=== PATIENT | female | born 1995 | race Caucasian/White ===

== ENCOUNTER 2016-08-02 20:26 | Emergency (ER) | payer SELFPAY ==
--- NOTE | 2016-08-02 20:33 | ER Document Report ---
ED Medical Screen (RME) - General Stated Complaint: WEAKNESS Time seen by provider: 20:31 Mode of Arrival: Wheelchair Information source: Patient Notes: 20-year-old female presents to ED for nausea with no vomiting, dizziness, fatigue, and nausea. Last menstrual period 07/27/2016. States she had something similar about a year ago but she doesn't know what was going on the I have greeted and performed a rapid initial assessment of this patient. A comprehensive ED assessment and evaluation of the patient, analysis of test results and completion of medical decision making process will be conducted by an additional ED providers. TRAVEL OUTSIDE OF THE [place] IN LAST 30 DAYS: No - Related Data Allergies/Adverse Reactions: prednisone [Prednisone] Allergy (Unknown, Verified 04/15/15 15:45) amoxicillin [Amoxicillin] Allergy (Verified 08/12/15 23:45) ondansetron HCl [From Zofran] Allergy (Verified 08/12/15 23:45) Past Medical History - Past Medical History Cardiac Medical History: Reports: Hx Hypercholesterolemia Pulmonary Medical History: Reports: Hx Bronchitis Endocrine Medical History: Reports: Hx Diabetes Mellitus Type 2 Renal/ Medical History: Reports: Hx Ectopic GI Medical History: Reports: Hx Gastroesophageal Reflux Disease Musculoskeltal Medical History: Reports Hx Musculoskeletal Deformity - sciatica , Reports Hx Musculoskeletal Trauma - feet and fingers Psychiatric Medical History: Reports: Hx Anxiety, Hx Attention Deficit Hyperactivity Disorder, Hx Bipolar Disorder, Hx Depression Traumatic Medical History: Reports: Hx Fractures - fingers and feet Past Surgical History: Reports: Hx Adenoidectomy, Hx Oral Surgery, Hx Orthopedic Surgery - bilateral ankle, Hx Tonsillectomy - Immunizations Immunizations up to date: Yes Hx Diphtheria, Pertussis, Tetanus Vaccination: Yes
[2016-08-02 20:34] VITALS: BP 130/76
[2016-08-02 20:57] LABS: ABSOLUTE EOSINOPHILS # (AUTO) 0.1 10^3/uL (0.0-0.6); ABSOLUTE LYMPHOCYTES (AUTO) 2.1 10^3/uL (0.5-4.7); ABSOLUTE MONOCYTES (AUTO) 0.4 10^3/uL (0.1-1.4); BASOPHILS % (AUTO) 0.2 % (0-2); EOSINOPHILS % (AUTO) 1.4 % (0-6); HEMATOCRIT 37.3 % (36.0-47.0); HEMOGLOBIN 12.4 g/dL (12.0-15.5); HGB HCT DIFFERENCE -0.1; LYMPHOCYTES % (AUTO) 27.9 % (13-45); MEAN CORPUSCULAR HEMOGLOBIN 28.7 pg (27.0-33.4); MEAN CORPUSCULAR HGB CONC 33.1 g/dL (32.0-36.0); MEAN CORPUSCULAR VOLUME 87 fl (80-97); MONOCYTES % (AUTO) 4.6 % (3-13); RED BLOOD COUNT 4.31 10^6/uL (3.72-5.28); RED CELL DISTRIBUTION WIDTH 12.7 % (11.5-14.0); SEGMENTED NEUTROPHILS % (AUTO) 65.9 % (42-78); WHITE BLOOD COUNT 7.6 10^3/uL (4.0-10.5)
[2016-08-02 21:03] LABS: APPEARANCE,URINE CLOUDY; BILIRUBIN,URINE NEGATIVE (NEGATIVE); GLUCOSE, URINE NEGATIVE (NEGATIVE); KETONES,URINE NEGATIVE (NEGATIVE); LEUKOCYTE ESTERASE,URINE TRACE (NEGATIVE); NITRITE,URINE NEGATIVE (NEGATIVE); PROTEIN,URINE NEGATIVE (NEGATIVE); URINE SPECIFIC GRAVITY 1.024
[2016-08-02 21:15] LABS: URINE BARBITURATES SCREEN NEGATIVE; URINE METHADONE SCREEN NEGATIVE; URINE PHENCYCLIDINE SCREEN NEGATIVE
[2016-08-02 21:22] LABS: ALANINE AMINOTRANSFERASE 55 U/L (5-35); ALBUMIN 4.8 g/dL (3.7-5.6); ALKALINE PHOSPHATASE 76 U/L (50-135); ANION GAP 13 (5-19); ASPARTATE AMINO TRANSFERASE 39 U/L (5-30); BILIRUBIN,TOTAL 0.6 mg/dL (0.2-1.3); BLOOD UREA NITROGEN 16 mg/dL (7-20); CALCIUM 9.6 mg/dL (8.4-10.2); CARBON DIOXIDE 26 mmol/L (22-30); CHLORIDE 105 mmol/L (98-107); CREATININE RESULT 0.69 mg/dL (0.52-1.25); GLUCOSE 113 mg/dL (75-110); LIPASE 131.5 U/L (23-300); POTASSIUM 4.1 mmol/L (3.6-5.0); SODIUM 144.3 mmol/L (137-145); TOTAL PROTEIN 7.4 g/dL (6.3-8.2)
== END 2016-08-02 20:50 | disposition left against medical advice (07) ==
LOC: ER 20:26
DX: R53.1 Weakness (principal); R11.0 Nausea; Z53.9 Procedure and treatment not carried out, unspecified reason
CPT/HCPCS: 36415; 80053; 80307; 81001; 83690; 84702; 85025; 99283

== ENCOUNTER 2016-08-18 10:13 | Emergency (ER) | payer SELFPAY ==
--- NOTE | 2016-08-18 10:26 | ER Document Report ---
ED Medical Screen (RME) - General Stated Complaint: LEG PAIN Time seen by provider: 10:22 Mode of Arrival: Wheelchair Information source: Patient TRAVEL OUTSIDE OF THE [place] IN LAST 30 DAYS: No - HPI Patient complains to provider of: LEFT HIP/LEG PAIN Onset: Other - 2-3 WEEKS Onset/Duration: Persistent Context: SEEN AT [facility] FOR 2-3 WEEKS AGO, XRAYS WERE NORMAL. DENIES INJURY. HX SCIATICA. PT WAS PUT ON MELOXICAM. Quality of pain: Sharp Severity: Severe Pain Level: 5 Associated Symptoms: None Exacerbated by: Denies Relieved by: Denies Similar symptoms previously: Yes Recently seen / treated by doctor: Yes - Related Data Smoking: Non-smoker Frequency of alcohol use: None Drug Abuse: None Pertinent History: HX SCIATICA MIGRAINES Allergies/Adverse Reactions: prednisone [Prednisone] Allergy (Unknown, Verified 04/15/15 15:45) amoxicillin [Amoxicillin] Allergy (Verified 08/12/15 23:45) ondansetron HCl [From Zofran] Allergy (Verified 08/12/15 23:45) Past Medical History - Past Medical History Cardiac Medical History: Reports: Hx Hypercholesterolemia Pulmonary Medical History: Reports: Hx Bronchitis Endocrine Medical History: Reports: Hx Diabetes Mellitus Type 2 Renal/ Medical History: Reports: Hx Ectopic . Denies: Hx Peritoneal Dialysis GI Medical History: Reports: Hx Gastroesophageal Reflux Disease Musculoskeltal Medical History: Reports Hx Musculoskeletal Deformity - sciatica , Reports Hx Musculoskeletal Trauma - feet and fingers Psychiatric Medical History: Reports: Hx Anxiety, Hx Attention Deficit Hyperactivity Disorder, Hx Bipolar Disorder, Hx Depression Traumatic Medical History: Reports: Hx Fractures - fingers and feet Past Surgical History: Reports: Hx Adenoidectomy, Hx Oral Surgery, Hx Orthopedic Surgery - bilateral ankle, Hx Tonsillectomy - Immunizations Immunizations up to date: Yes Hx Diphtheria, Pertussis, Tetanus Vaccination: Yes
--- NOTE | 2016-08-18 11:25 | ER Document Report ---
[id number] Mode of Arrival: Wheelchair Information source: Patient Notes: 20 yr old female presents with complaints of sciatica for 3 year duration. pt has been to multiple eds, notes that she has never seen ortho . pt denies any new neuro deficits, admits to pain shooting ot her calves on the left. pt also notes continued hip pain TRAVEL OUTSIDE OF THE [place] IN LAST 30 DAYS: No - HPI Onset: Other Onset/Duration: Persistent Quality of pain: Achy Severity: Mild Pain Level: 1 Associated symptoms: Other Exacerbated by: Movement Relieved by: Denies Similar symptoms previously: Yes Recently seen / treated by doctor: Yes - Related Data Allergies/Adverse Reactions: prednisone [Prednisone] Allergy (Unknown, Verified 08/18/16 10:24) amoxicillin [Amoxicillin] Allergy (Verified 08/18/16 10:24) ondansetron HCl [From Zofran] Allergy (Verified 08/18/16 10:24) Past Medical History - General Information source: Patient - Social History Smoking Status: Never Smoker Cigarette use (# per day): No Chew tobacco use (# tins/day): No Smoking Education Provided: No Frequency of alcohol use: None Drug Abuse: None Family History: Arthritis, CAD, CVA, DM, Hyperlipidemia, Hypertension, Malignancy, Thyroid Disfunction Patient has suicidal ideation: No Patient has homicidal ideation: No - Past Medical History Cardiac Medical History: Reports: Hx Hypercholesterolemia Pulmonary Medical History: Reports: Hx Bronchitis Endocrine Medical History: Reports: Hx Diabetes Mellitus Type 2 Renal/ Medical History: Reports: Hx Ectopic . Denies: Hx Peritoneal Dialysis GI Medical History: Reports: Hx Gastroesophageal Reflux Disease Musculoskeltal Medical History: Reports Hx Musculoskeletal Deformity - sciatica , Reports Hx Musculoskeletal Trauma - feet and fingers Psychiatric Medical History: Reports: Hx Anxiety, Hx Attention Deficit Hyperactivity Disorder, Hx Bipolar Disorder, Hx Depression Traumatic Medical History: Reports: Hx Fractures - fingers and feet Past Surgical History: Reports: Hx Adenoidectomy, Hx Oral Surgery, Hx Orthopedic Surgery - bilateral ankle, Hx Tonsillectomy - Immunizations Immunizations up to date: Yes Hx Diphtheria, Pertussis, Tetanus Vaccination: Yes Review of Systems - Review of Systems Notes: REVIEW OF SYSTEMS: CONSTITUTIONAL : Denies fever, chills, or sweats. Denies recent illness. EENT: Denies eye, ear, throat, or mouth pain or symptoms. Denies nasal or sinus congestion or discharge. Denies throat, tongue, or mouth swelling or difficulty swallowing. CARDIOVASCULAR: Denies chest pain. Denies palpitations or racing or irregular heart beat. Denies ankle edema. RESPIRATORY: Denies cough, cold, or chest congestion. Denies shortness of breath, difficulty breathing, or wheezing. GASTROINTESTINAL: Denies abdominal pain or distention. Denies nausea, vomiting , or diarrhea. Denies blood in vomitus, stools, or per rectum. Denies black, tarry stools. Denies constipation. GENITOURINARY: Denies difficulty urinating, painful urination, burning, frequency, blood in urine, or discharge. FEMALE GENITOURINARY: Denies vaginal bleeding, heavy or abnormal periods, irregular periods. Denies vaginal discharge or odor. MUSCULOSKELETAL: Admits to left hip pain rating down the left leg SKIN: Denies rash, lesions or sores. HEMATOLOGIC : Denies easy bruising or bleeding. LYMPHATIC: Denies swollen, enlarged glands. NEUROLOGICAL: Denies confusion or altered mental status. Denies passing out or loss of consciousness. Denies dizziness or lightheadedness. Denies headache. Denies weakness or paralysis or loss of use of either side. Denies problems with gait or speech. Denies sensory loss, numbness, or tingling. Denies seizures. PSYCHIATRIC: Denies anxiety or stress. Denies depression, suicidal ideation, or homicidal ideation. ALL OTHER SYSTEMS REVIEWED AND NEGATIVE. Dictation was performed using [employer] voice recognition software PHYSICAL EXAMINATION: GENERAL: Well-appearing, well-nourished and in no acute distress. HEAD: Atraumatic, normocephalic. EYES: Pupils equal round and reactive to light, extraocular movements intact, conjunctiva are normal. ENT: Nares patent, oropharynx clear without exudates. Moist mucous membranes. NECK: Normal range of motion, supple without lymphadenopathy LUNGS: Breath sounds clear to auscultation bilaterally and equal. No wheezes rales or rhonchi. HEART: Regular rate and rhythm without murmurs ABDOMEN: Soft, nontender, nondistended abdomen. No guarding, no rebound. No masses appreciated. Female : deferred Musculoskeletal: Normal range of motion, no pitting or edema. No cyanosis. NEUROLOGICAL: Cranial nerves grossly intact. Normal speech, normal gait. Normal sensory, motor exams PSYCH: Normal mood, normal affect. SKIN: Warm, Dry, normal turgor, no rashes or lesions noted. Physical Exam - Vital signs Vitals: Temp Pulse Resp BP Pulse Ox 98.0 F 82 14 132/77 H 98 08/18/16 10:23 08/18/16 10:23 08/18/16 10:23 08/18/16 10:23 08/18/16 10:23 Course - Re-evaluation Re-evalutation: 08/18/16 16:43 Patient will be treated for her pain, I believe the patient's otherwise stable for discharge given that this is now on going for 3 year duration. Patient will be given orthopedic follow-up and is otherwise in no specific distress. Patient has no cauda equina concerns[ After performing a Medical Screening Examination, I estimate there is LOW risk for EXPANDING OR RUPTURED ABDOMINAL AORTIC ANEURYSM, CAUDA EQUINA SYNDROME, EPIDURAL MASS LESION, or HERNIATED DISK CAUSING SEVERE SPINAL STENOSIS, thus I consider the discharge disposition reasonable. The patient and I have discussed the diagnosis and risks, and we agree with discharging home and close follow-up. We also discussed returning to the Emergency Department immediately if new or worsening symptoms occur with the understanding that symptoms and presentations can change. We have discussed the symptoms which are most concerning (e.g., saddle anesthesia, urinary or bowel incontinence or retention , changing or worsening pain) that necessitate immediate return. - Vital Signs Vital signs: Temp Pulse Resp BP Pulse Ox 98.2 F 80 16 128/72 H 98 08/18/16 11:30 08/18/16 11:30 08/18/16 11:30 08/18/16 11:30 08/18/16 11:30 Discharge - Discharge Clinical Impression: Hip pain, left, Sciatic leg pain Condition: Stable Disposition: HOME, SELF-CARE Instructions: Neuralgia ([facility]) Prescriptions: Gabapentin 300 mg PO BID #30 capsule Referrals: HERMILO BLANTON MD [Primary Care Provider] - Follow up as needed YENY BRONSON MD [ACTIVE STAFF] - Follow up tomorrow
[2016-08-18 11:41] VITALS: BP 128/72
== END 2016-08-18 11:30 | disposition home or self-care (01) ==
LOC: ER 10:13
DX: M54.32 Sciatica, left side (principal); E11.9 Type 2 diabetes mellitus without complications; M25.552 Pain in left hip; Z88.8 Allergy status to other drugs, medicaments and biological substances; Z88.0 Allergy status to penicillin
CPT/HCPCS: 99283

== ENCOUNTER 2016-10-04 19:15 | Emergency (ER) | payer SELFPAY ==
[2016-10-04 19:29] VITALS: BP 132/74
--- NOTE | 2016-10-04 20:40 | ER Document Report ---
ED Medical Screen (RME) - General Stated Complaint: FEVER,NAUSEA,LEFT SIDE PAIN Mode of Arrival: Ambulatory Information source: Patient Notes: Patient reports fever today of 101.7 at home. Patient reports nausea and lateral side pain. No urinary symptoms. Patient denies any vaginal bleeding or discharge. Patient does complain of some ear pain. hx: Migraine, anxiety, depression I have greeted and performed a rapid initial assessment of this patient. A comprehensive ED assessment and evaluation of the patient, analysis of test results and completion of the medical decision making process will be conducted by additional ED providers. TRAVEL OUTSIDE OF THE [place] IN LAST 30 DAYS: No - Related Data Allergies/Adverse Reactions: prednisone [Prednisone] Allergy (Unknown, Verified 10/04/16 20:38) amoxicillin [Amoxicillin] Allergy (Verified 10/04/16 20:38) ondansetron HCl [From Zofran] Allergy (Verified 10/04/16 20:38) Past Medical History - Past Medical History Cardiac Medical History: Reports: Hx Hypercholesterolemia Pulmonary Medical History: Reports: Hx Bronchitis Endocrine Medical History: Reports: Hx Diabetes Mellitus Type 2 Renal/ Medical History: Reports: Hx Ectopic . Denies: Hx Peritoneal Dialysis GI Medical History: Reports: Hx Gastroesophageal Reflux Disease Musculoskeltal Medical History: Reports Hx Musculoskeletal Deformity - sciatica , Reports Hx Musculoskeletal Trauma - feet and fingers Psychiatric Medical History: Reports: Hx Anxiety, Hx Attention Deficit Hyperactivity Disorder, Hx Bipolar Disorder, Hx Depression Traumatic Medical History: Reports: Hx Fractures - fingers and feet Past Surgical History: Reports: Hx Adenoidectomy, Hx Oral Surgery, Hx Orthopedic Surgery - bilateral ankle, Hx Tonsillectomy - Immunizations Immunizations up to date: Yes Hx Diphtheria, Pertussis, Tetanus Vaccination: Yes Physical Exam - Vital signs Vitals: Temp Pulse Resp BP Pulse Ox 99.1 F 90 16 132/74 H 100 10/04/16 19:27 10/04/16 19:27 10/04/16 19:27 10/04/16 19:27 10/04/16 19:27 - Abdominal Tenderness: Tender - Left lateral side tenderness Course - Vital Signs Vital signs: Temp Pulse Resp BP Pulse Ox 99.1 F 90 16 132/74 H 100 10/04/16 19:27 10/04/16 19:27 10/04/16 19:27 10/04/16 19:27 10/04/16 19:27
[2016-10-04 21:18] LABS: APPEARANCE,URINE SLIGHTLY-CLOUDY; BILIRUBIN,URINE NEGATIVE (NEGATIVE); GLUCOSE, URINE NEGATIVE (NEGATIVE); KETONES,URINE NEGATIVE (NEGATIVE); LEUKOCYTE ESTERASE,URINE NEGATIVE (NEGATIVE); NITRITE,URINE NEGATIVE (NEGATIVE); PROTEIN,URINE NEGATIVE (NEGATIVE); URINE SPECIFIC GRAVITY 1.016; UROBILINOGEN,URINE NEGATIVE mg/dL (<2.0)
[2016-10-04 21:21] LABS: ALANINE AMINOTRANSFERASE 33 U/L (5-35); ALBUMIN 4.7 g/dL (3.7-5.6); ALKALINE PHOSPHATASE 79 U/L (50-135); ANION GAP 12 (5-19); ASPARTATE AMINO TRANSFERASE 22 U/L (5-30); BILIRUBIN,DIRECT 0.1 mg/dL (0.0-0.4); BILIRUBIN,TOTAL 0.4 mg/dL (0.2-1.3); BLOOD UREA NITROGEN 8 mg/dL (7-20); CALCIUM 10.3 mg/dL (8.4-10.2); CARBON DIOXIDE 28 mmol/L (22-30); CHLORIDE 105 mmol/L (98-107); CREATININE RESULT 0.66 mg/dL (0.52-1.25); GLUCOSE 101 mg/dL (75-110); LIPASE 121.4 U/L (23-300); POTASSIUM 3.9 mmol/L (3.6-5.0); SODIUM 145.4 mmol/L (137-145); TOTAL PROTEIN 7.7 g/dL (6.3-8.2)
[2016-10-04 21:40] LABS: ABSOLUTE EOSINOPHILS # (AUTO) 0.1 10^3/uL (0.0-0.6); ABSOLUTE LYMPHOCYTES (AUTO) 3.2 10^3/uL (0.5-4.7); ABSOLUTE MONOCYTES (AUTO) 0.6 10^3/uL (0.1-1.4); ABSOLUTE NEUT (AUTO) 4.8 10^3/uL (1.7-8.2); BASOPHILS % (AUTO) 0.3 % (0-2); EOSINOPHILS % (AUTO) 1.3 % (0-6); HEMATOCRIT 36.8 % (36.0-47.0); HEMOGLOBIN 12.8 g/dL (12.0-15.5); HGB HCT DIFFERENCE 1.6; LYMPHOCYTES % (AUTO) 36.8 % (13-45); MEAN CORPUSCULAR HEMOGLOBIN 29.8 pg (27.0-33.4); MEAN CORPUSCULAR HGB CONC 34.6 g/dL (32.0-36.0); MEAN CORPUSCULAR VOLUME 86 fl (80-97); MONOCYTES % (AUTO) 7.3 % (3-13); RED BLOOD COUNT 4.28 10^6/uL (3.72-5.28); RED CELL DISTRIBUTION WIDTH 12.8 % (11.5-14.0); SEGMENTED NEUTROPHILS % (AUTO) 54.3 % (42-78); WHITE BLOOD COUNT 8.8 10^3/uL (4.0-10.5)
--- NOTE | 2016-10-05 00:28 | ER Document Report ---
ED Fever - General Time seen by provider: 00:27 Mode of Arrival: Ambulatory Information source: Patient TRAVEL OUTSIDE OF THE [place] IN LAST 30 DAYS: No - HPI Patient complains to provider of: fever Associated symptoms: Other - see above <TANYA SILVESTRE - Last Filed: 10/05/16 01:25> <JOSE MACIEL - Last Filed: 10/05/16 03:28> - General Chief Complaint: Fever Stated Complaint: FEVER Notes: Patient is a 20 year old female who presents to the emergency department complaining of fever. Patient also complains of intermittent abdominal pain on left side, nausea, vomiting, and breast tenderness. Patient states that she is feeling fine presently. Patient states she took a test this morning at home and it was positive, states her next period is due in 5 days. Patient denies vaginal bleeding, vaginal discharge, and back pain. (TANYA SILVESTRE) - Related Data Allergies/Adverse Reactions: prednisone [Prednisone] Allergy (Unknown, Verified 10/04/16 20:38) amoxicillin [Amoxicillin] Allergy (Verified 10/04/16 20:38) ondansetron HCl [From Zofran] Allergy (Verified 10/04/16 20:38) Past Medical History - General Information source: Patient - Social History Smoking Status: Never Smoker Chew tobacco use (# tins/day): No Frequency of alcohol use: None Drug Abuse: None Family History: Reviewed & Not Pertinent, Arthritis, CAD, CVA, DM, Hyperlipidemia, Hypertension, Malignancy, Thyroid Disfunction - Past Medical History Cardiac Medical History: Reports: Hx Hypercholesterolemia Pulmonary Medical History: Reports: Hx Bronchitis Endocrine Medical History: Reports: Hx Diabetes Mellitus Type 2 Renal/ Medical History: Reports: Hx Ectopic GI Medical History: Reports: Hx Gastroesophageal Reflux Disease Musculoskeltal Medical History: Reports Hx Musculoskeletal Deformity - sciatica , Reports Hx Musculoskeletal Trauma - feet and fingers Psychiatric Medical History: Reports: Hx Anxiety, Hx Attention Deficit Hyperactivity Disorder, Hx Bipolar Disorder, Hx Depression Traumatic Medical History: Reports: Hx Fractures - fingers and feet Past Surgical History: Reports: Hx Adenoidectomy, Hx Oral Surgery, Hx Orthopedic Surgery - bilateral ankle, Hx Tonsillectomy - Immunizations Immunizations up to date: Yes Hx Diphtheria, Pertussis, Tetanus Vaccination: Yes <TANYA SILVESTRE - Last Filed: 10/05/16 01:25> Review of Systems - Review of Systems Constitutional: See HPI, Fever EENT: No symptoms reported Cardiovascular: No symptoms reported Respiratory: No symptoms reported Gastrointestinal: See HPI, Abdominal pain, Nausea, Vomiting Genitourinary: No symptoms reported Female Genitourinary: See HPI, Other - breast tenderness. denies: Vaginal discharge, Vaginal bleeding Musculoskeletal: denies: Back pain Skin: No symptoms reported Hematologic/Lymphatic: No symptoms reported Neurological/Psychological: No symptoms reported -: Yes All other systems reviewed and negative <TANYA SILVESTRE - Last Filed: 10/05/16 01:25> Physical Exam - Vital signs Interpretation: Normal - General General appearance: Appears well, Alert - HEENT Head: Normocephalic, Atraumatic Eyes: Normal Pupils: PERRL - Respiratory Respiratory status: No respiratory distress Chest status: Nontender Breath sounds: Normal Chest palpation: Normal - Cardiovascular Rhythm: Regular Heart sounds: Normal auscultation Murmur: No - Abdominal Inspection: Normal Distension: No distension Bowel sounds: Normal Tenderness: Nontender Organomegaly: No organomegaly - Back Back: Normal, Nontender - Extremities General upper extremity: Normal inspection, Nontender, Normal color, Normal ROM , Normal temperature General lower extremity: Normal inspection, Nontender, Normal color, Normal ROM , Normal temperature, Normal weight bearing. No: Gunjan's sign - Neurological Neuro grossly intact: Yes Cognition: Normal Orientation: AAOx4 Jerad Coma Scale Eye Opening: Spontaneous Jerad Coma Scale Verbal: Oriented Jerad Coma Scale Motor: Obeys Commands [place] Coma Scale Total: 15 Speech: Normal Motor strength normal: LUE, RUE, LLE, RLE Sensory: Normal - Psychological Associated symptoms: Normal affect, Normal mood - Skin Skin Temperature: Warm Skin Moisture: Dry Skin Color: Normal <JOSE MACIEL - Last Filed: 10/05/16 03:28> - Vital signs Vitals: Temp Pulse Resp BP Pulse Ox 99.1 F 90 16 132/74 H 100 10/04/16 19:27 10/04/16 19:27 10/04/16 19:27 10/04/16 19:27 10/04/16 19:27 Course - Laboratory Result Diagrams: 10/04/16 20:45 10/04/16 20:45 <TANYA SILVESTRE - Last Filed: 10/05/16 01:25> - Laboratory Result Diagrams: 10/04/16 20:45 10/04/16 20:45 <JOSE MACIEL - Last Filed: 10/05/16 03:28> - Re-evaluation Re-evalutation: 10/05/16 Patient with no symptoms at this time. Normal physical exam. Blood work normal. Patient states that she a positive home test. HCG qual and Quant negative here. Patient is not at this time. She is to follow- up with her doctor if she has any further symptoms or return if she has concerns. Stable for discharge. (JOSE MACIEL) - Vital Signs Vital signs: Temp Pulse Resp BP Pulse Ox 99.1 F 90 16 132/74 H 100 10/04/16 19:27 10/04/16 19:27 10/04/16 19:27 10/04/16 19:27 10/04/16 19:27 - Laboratory Laboratory results interpreted by me: 10/04/16 20:45 Sodium 145.4 H Calcium 10.3 H Discharge <TANYA SILVESTRE - Last Filed: 10/05/16 01:25> <JOSE MACIEL - Last Filed: 10/05/16 03:28> - Discharge Clinical Impression: Nausea Abdominal pain Qualifiers: Abdominal location: unspecified location Qualified Code(s): R10.9 - Unspecified abdominal pain Condition: Stable Disposition: HOME, SELF-CARE Instructions: Abdominal Pain ([facility]), Nausea or Vomiting, Nonspecific ([facility]) Referrals: HERMILO BLANTON MD [Primary Care Provider] - Follow up as needed Scribe Attestation: 10/05/16 03:28 I personally performed the services described in the documentation, reviewed and edited the documentation which was dictated to the scribe in my presence, and it accurately records my words and actions. (JOSE MACIEL) Scribe Documentation - Scribe Written by Carlota:: carlota Barger, 10/05/16, 0148 acting as scribe for :: Renny <TANYA SILVESTRE - Last Filed: 10/05/16 01:25>
== END 2016-10-05 01:18 | disposition home or self-care (01) ==
LOC: ER 19:15
DX: R10.9 Unspecified abdominal pain (principal); R11.2 Nausea with vomiting, unspecified; R50.9 Fever, unspecified; N64.59 Other signs and symptoms in breast; E11.9 Type 2 diabetes mellitus without complications; Z32.02 Encounter for pregnancy test, result negative; Z88.8 Allergy status to other drugs, medicaments and biological substances; Z88.0 Allergy status to penicillin; Z87.19 Personal history of other diseases of the digestive system
CPT/HCPCS: 36415; 80053; 81001; 83690; 84702; 84703; 85025; 87070; 87804; 87880; 99283

== ENCOUNTER 2016-10-12 19:06 | Emergency (ER) | payer SELFPAY ==
--- NOTE | 2016-10-12 19:31 | ER Document Report ---
ED Medical Screen (RME) - General Stated Complaint: EAR AND THROAT PAIN Notes: Patient states she was told by her doctor at [facility] to come to the emergency room cousin the extreme ear pain she was having in both ears for 2 days. Patient denies congestion, discharge or fever. Patient denies chronic problem with her ears. I have greeted and performed a rapid initial assessment of this patient. A comprehensive ED assessment and evaluation of the patient, analysis of test results and completion of the medical decision making process will be conducted by additional ED providers. TRAVEL OUTSIDE OF THE [place] IN LAST 30 DAYS: No - Related Data Allergies/Adverse Reactions: prednisone [Prednisone] Allergy (Unknown, Verified 10/12/16 19:32) amoxicillin [Amoxicillin] Allergy (Verified 10/12/16 19:32) ondansetron HCl [From Zofran] Allergy (Verified 10/12/16 19:32) Past Medical History - Past Medical History Cardiac Medical History: Reports: Hx Hypercholesterolemia Pulmonary Medical History: Reports: Hx Bronchitis Endocrine Medical History: Reports: Hx Diabetes Mellitus Type 2 Renal/ Medical History: Reports: Hx Ectopic . Denies: Hx Peritoneal Dialysis GI Medical History: Reports: Hx Gastroesophageal Reflux Disease Musculoskeltal Medical History: Reports Hx Musculoskeletal Deformity - sciatica , Reports Hx Musculoskeletal Trauma - feet and fingers Psychiatric Medical History: Reports: Hx Anxiety, Hx Attention Deficit Hyperactivity Disorder, Hx Bipolar Disorder, Hx Depression Traumatic Medical History: Reports: Hx Fractures - fingers and feet Past Surgical History: Reports: Hx Adenoidectomy, Hx Oral Surgery, Hx Orthopedic Surgery - bilateral ankle, Hx Tonsillectomy - Immunizations Immunizations up to date: Yes Hx Diphtheria, Pertussis, Tetanus Vaccination: Yes Physical Exam - General General appearance: Appears well, Alert In distress: None
[2016-10-12] MEDS ORDERED: AZITHROMYCIN 250 MG TABLET PO ONE (22:03)
[2016-10-12] MEDS ORDERED: HYDROCODONE/ACETAMINOPHEN 5-325 MG TABLET PO ONE (22:03)
--- NOTE | 2016-10-12 22:04 | ER Document Report ---
HPI - HPI Patient complains to provider of: ear pain Onset: Other - 2 days Onset/Duration: Persistent Quality of pain: Achy Pain Level: 4 Context: Patient complains of bilateral ear pain, right worse than left for the past 2 days. Patient denies any sore throat or dental pain. Patient denies any fever. Patient denies any recent swimming or water exposure to the ears. Associated Symptoms: Earache. denies: Fever Exacerbated by: Denies Relieved by: Denies Similar symptoms previously: Yes Recently seen / treated by doctor: No - ROS ROS below otherwise negative: Yes Systems Reviewed and Negative: Yes All other systems reviewed and negative - CONSTITUTIONAL Constitutional: DENIES: Fever - EENT EENT: REPORTS: Ear Pain. DENIES: Sore Throat, Congestion - NEURO Neurology: DENIES: Headache - RESPIRATORY Respiratory: DENIES: Coughing - GASTROINTESTINAL Gastrointestinal: DENIES: Nausea, Patient vomiting - REPRODUCTIVE Reproductive: DENIES: : - DERM Skin Color: Normal, [place] Skin Problems: None Past Medical History - General Information source: Patient - Social History Smoking Status: Never Smoker Chew tobacco use (# tins/day): No Frequency of alcohol use: None Drug Abuse: None Occupation: daycare worker Lives with: Family Family History: Reviewed & Not Pertinent, Arthritis, CAD, CVA, DM, Hyperlipidemia, Hypertension, Malignancy, Thyroid Disfunction - Past Medical History Cardiac Medical History: Reports: Hx Hypercholesterolemia Pulmonary Medical History: Reports: Hx Bronchitis Endocrine Medical History: Reports: Hx Diabetes Mellitus Type 2 Renal/ Medical History: Reports: Hx Ectopic . Denies: Hx Peritoneal Dialysis GI Medical History: Reports: Hx Gastroesophageal Reflux Disease Musculoskeltal Medical History: Reports Hx Musculoskeletal Deformity - sciatica , Reports Hx Musculoskeletal Trauma - feet and fingers Psychiatric Medical History: Reports: Hx Anxiety, Hx Attention Deficit Hyperactivity Disorder, Hx Bipolar Disorder, Hx Depression Traumatic Medical History: Reports: Hx Fractures - fingers and feet Past Surgical History: Reports: Hx Adenoidectomy, Hx Oral Surgery, Hx Orthopedic Surgery - bilateral ankle, Hx Tonsillectomy - Immunizations Immunizations up to date: Yes Hx Diphtheria, Pertussis, Tetanus Vaccination: Yes Vertical Provider Document - CONSTITUTIONAL Agree With Documented VS: Yes Exam Limitations: No Limitations General Appearance: WD/WN, No Apparent Distress - INFECTION CONTROL TRAVEL OUTSIDE OF THE [place] IN LAST 30 DAYS: No - HEENT HEENT: Atraumatic, Normocephalic, Tympanic Membrane Red, Tympanic Membrane Bulging. negative: Pharyngeal Exudate, Pharyngeal Tenderness, Pharyngeal Erythema Notes: No mastoid tenderness or swelling - NECK Neck: Normal Inspection, Supple. negative: Lymphadenopathy-Left, Lymphadenopathy-Right - RESPIRATORY Respiratory: Breath Sounds Normal, No Respiratory Distress, Chest Non-Tender O2 Sat by Pulse Oximetry: 99 - CARDIOVASCULAR Cardiovascular: Regular Rate, Regular Rhythm, No Murmur - BACK Back: Normal Inspection - MUSCULOSKELETAL/EXTREMETIES Musculoskeletal/Extremeties: MAEW - NEURO Level of Consciousness: Awake, Alert, Appropriate Motor/Sensory: No Motor Deficit - DERM Integumentary: Warm, Dry, No Rash Course - Re-evaluation Re-evalutation: 10/12/16 22:42 Excessive cerumen removed from left external auditory canal, normal right TM - Vital Signs Vital signs: Temp Pulse Resp BP Pulse Ox 99.1 F 72 16 125/68 99 10/12/16 19:25 10/12/16 19:25 10/12/16 19:25 10/12/16 19:25 10/12/16 19:25 Discharge - Discharge Clinical Impression: Impacted cerumen of left ear Otitis media Qualifiers: Otitis media type: unspecified Laterality: right Chronicity: acute Condition: Stable Disposition: HOME, SELF-CARE Instructions: Otitis Media ([facility]), Azithromycin ([facility]), Cerumen Impaction ([facility]) Additional Instructions: Return immediately for any new or worsening symptoms Followup with your primary care provider, call tomorrow to make a followup appointment Follow up with an nuclear spectroscopist for any continued ear pain or problems Prescriptions: Azithromycin [Zithromax 250 mg Tablet] 250 mg PO DAILY 4 Days Hydrocodone/Acetaminophen [Hundred 5-325 Tablet] 1 each PO Q4 PRN #12 tablet PRN Reason: Referrals: HERMILO BLANTON MD [Primary Care Provider] - 10/15/16 [facility] [Provider Group] - Follow up as needed
[2016-10-12 23:17] VITALS: BP 121/76
== END 2016-10-12 23:17 | disposition home or self-care (01) ==
LOC: ER 19:06
DX: H66.91 Otitis media, unspecified, right ear (principal); H61.22 Impacted cerumen, left ear; H92.03 Otalgia, bilateral; E11.9 Type 2 diabetes mellitus without complications
CPT/HCPCS: 99282

== ENCOUNTER 2016-11-04 17:40 | Emergency (ER) | payer SELFPAY ==
--- NOTE | 2016-11-04 18:24 | ER Document Report ---
ED Medical Screen (RME) - General Chief Complaint: Abdominal Pain Stated Complaint: ABDOMINAL PAIN Notes: Patient says that she's been having left lower quadrant pain since July says the pain is constant. She was seen at another hospital ([facility]) in August and diagnosed as constipation but the patient doesn't sound like she believes it. She continues to have the same pains even though she is having regular bowel movements. Denies any blood in her stools. Not having any vomiting. Has not had a fever. On a previous occasion patient was seen at [facility] where she was told she had twisting and untwisting ovaries. She's never had any surgery for this condition. Is scheduled to see her LADLE PULLER this coming week. Fertility issues. TRAVEL OUTSIDE OF THE [place] IN LAST 30 DAYS: No - Related Data Allergies/Adverse Reactions: prednisone [Prednisone] Allergy (Unknown, Verified 11/04/16 17:55) amoxicillin [Amoxicillin] Allergy (Verified 11/04/16 17:55) ondansetron HCl [From Zofran] Allergy (Verified 11/04/16 17:55) Past Medical History - Past Medical History Cardiac Medical History: Reports: Hx Hypercholesterolemia Pulmonary Medical History: Reports: Hx Bronchitis Endocrine Medical History: Reports: Hx Diabetes Mellitus Type 2 Renal/ Medical History: Reports: Hx Ectopic . Denies: Hx Peritoneal Dialysis GI Medical History: Reports: Hx Gastroesophageal Reflux Disease Musculoskeltal Medical History: Reports Hx Musculoskeletal Deformity - sciatica , Reports Hx Musculoskeletal Trauma - feet and fingers Psychiatric Medical History: Reports: Hx Anxiety, Hx Attention Deficit Hyperactivity Disorder, Hx Bipolar Disorder, Hx Depression Traumatic Medical History: Reports: Hx Fractures - fingers and feet Past Surgical History: Reports: Hx Adenoidectomy, Hx Oral Surgery, Hx Orthopedic Surgery - bilateral ankle, Hx Tonsillectomy - Immunizations Immunizations up to date: Yes Hx Diphtheria, Pertussis, Tetanus Vaccination: Yes Physical Exam - Vital signs Vitals: Temp Pulse Resp BP Pulse Ox 98.1 F 66 18 138/63 H 100 11/04/16 17:54 11/04/16 17:54 11/04/16 17:54 11/04/16 17:54 11/04/16 17:54 Course - Vital Signs Vital signs: Temp Pulse Resp BP Pulse Ox 98.1 F 66 18 138/63 H 100 11/04/16 17:54 11/04/16 17:54 11/04/16 17:54 11/04/16 17:54 11/04/16 17:54
[2016-11-04 18:57] LABS: ABSOLUTE EOSINOPHILS # (AUTO) 0.1 10^3/uL (0.0-0.6); ABSOLUTE LYMPHOCYTES (AUTO) 2.9 10^3/uL (0.5-4.7); ABSOLUTE MONOCYTES (AUTO) 0.8 10^3/uL (0.1-1.4); BASOPHILS % (AUTO) 0.3 % (0-2); EOSINOPHILS % (AUTO) 1.5 % (0-6); HEMATOCRIT 35.8 % (36.0-47.0); HEMOGLOBIN 12.6 g/dL (12.0-15.5); LYMPHOCYTES % (AUTO) 33.2 % (13-45); MEAN CORPUSCULAR HEMOGLOBIN 30.3 pg (27.0-33.4); MEAN CORPUSCULAR HGB CONC 35.3 g/dL (32.0-36.0); MEAN CORPUSCULAR VOLUME 86 fl (80-97); MONOCYTES % (AUTO) 8.6 % (3-13); RED BLOOD COUNT 4.17 10^6/uL (3.72-5.28); RED CELL DISTRIBUTION WIDTH 12.6 % (11.5-14.0); SEGMENTED NEUTROPHILS % (AUTO) 56.4 % (42-78); WHITE BLOOD COUNT 8.8 10^3/uL (4.0-10.5)
[2016-11-04 19:15] LABS: ALANINE AMINOTRANSFERASE 30 U/L (5-35); ALBUMIN 4.5 g/dL (3.7-5.6); ALKALINE PHOSPHATASE 69 U/L (50-135); ANION GAP 13 (5-19); ASPARTATE AMINO TRANSFERASE 23 U/L (5-30); BILIRUBIN,DIRECT 0.1 mg/dL (0.0-0.4); BILIRUBIN,TOTAL 0.5 mg/dL (0.2-1.3); BLOOD UREA NITROGEN 12 mg/dL (7-20); CALCIUM 9.8 mg/dL (8.4-10.2); CARBON DIOXIDE 27 mmol/L (22-30); CHLORIDE 105 mmol/L (98-107); CREATININE RESULT 0.72 mg/dL (0.52-1.25); GLUCOSE 76 mg/dL (75-110); LIPASE 144.3 U/L (23-300); POTASSIUM 4.3 mmol/L (3.6-5.0); SODIUM 145.3 mmol/L (137-145)
[2016-11-04 19:27] LABS: APPEARANCE,URINE SLIGHTLY-CLOUDY; BILIRUBIN,URINE NEGATIVE (NEGATIVE); GLUCOSE, URINE NEGATIVE (NEGATIVE); KETONES,URINE NEGATIVE (NEGATIVE); LEUKOCYTE ESTERASE,URINE NEGATIVE (NEGATIVE); NITRITE,URINE NEGATIVE (NEGATIVE); PROTEIN,URINE NEGATIVE (NEGATIVE); URINE SPECIFIC GRAVITY 1.012; UROBILINOGEN,URINE NEGATIVE mg/dL (<2.0)
--- NOTE | 2016-11-04 20:24 | ER Document Report ---
ED General - General Chief Complaint: Abdominal Pain Stated Complaint: ABDOMINAL PAIN Notes: Patient is a 20-year-old female who presents with 3 months of chronic daily left lower abdominal pain. The pain is described as a constant, dull, aching pain in the left lower quadrant. Nothing improves or worsens the pain. She denies any associated vaginal bleeding, dysuria, vaginal discharge, back pain, vomiting or diarrhea. She is continuing to have these symptoms despite trying [id number] pain medications. She was seen at [facility] 3 months ago for the same complaints and had a CT of her abdomen and pelvis at that time which was normal. Patient does note a history of depression, anxiety, chronic back pain, and has a history of functional abdominal pain in the past. TRAVEL OUTSIDE OF THE [place] IN LAST 30 DAYS: No - Related Data Allergies/Adverse Reactions: prednisone [Prednisone] Allergy (Unknown, Verified 11/04/16 17:55) amoxicillin [Amoxicillin] Allergy (Verified 11/04/16 17:55) ondansetron HCl [From Zofran] Allergy (Verified 11/04/16 17:55) Past Medical History - General Information source: Patient - Social History Smoking Status: Never Smoker Chew tobacco use (# tins/day): No Frequency of alcohol use: None Drug Abuse: None Lives with: Spouse/Significant other Family History: Reviewed & Not Pertinent, Arthritis, CAD, CVA, DM, Hyperlipidemia, Hypertension, Malignancy, Thyroid Disfunction Patient has suicidal ideation: No Patient has homicidal ideation: No - Past Medical History Cardiac Medical History: Reports: Hx Hypercholesterolemia Pulmonary Medical History: Reports: Hx Bronchitis Endocrine Medical History: Reports: Hx Diabetes Mellitus Type 2 Renal/ Medical History: Reports: Hx Ectopic . Denies: Hx Peritoneal Dialysis GI Medical History: Reports: Hx Gastroesophageal Reflux Disease Musculoskeltal Medical History: Reports Hx Musculoskeletal Deformity - sciatica , Reports Hx Musculoskeletal Trauma - feet and fingers Psychiatric Medical History: Reports: Hx Anxiety, Hx Attention Deficit Hyperactivity Disorder, Hx Bipolar Disorder, Hx Depression Traumatic Medical History: Reports: Hx Fractures - fingers and feet Past Surgical History: Reports: Hx Adenoidectomy, Hx Oral Surgery, Hx Orthopedic Surgery - bilateral ankle, Hx Tonsillectomy - Immunizations Immunizations up to date: Yes Hx Diphtheria, Pertussis, Tetanus Vaccination: Yes Review of Systems - Review of Systems Notes: Constitutional: Negative for fever. HENT: Negative for sore throat. Eyes: Negative for visual changes. Cardiovascular: Negative for chest pain. Respiratory: Negative for shortness of breath. Gastrointestinal: Positive for abdominal pain, negative for vomiting or diarrhea. Genitourinary: Negative for dysuria. Musculoskeletal: Negative for back pain. Skin: Negative for rash. Neurological: Negative for headaches, weakness or numbness. 10 point ROS negative except as marked above and in HPI. Physical Exam - Vital signs Vitals: Temp Pulse Resp BP Pulse Ox 98.1 F 66 18 138/63 H 100 11/04/16 17:54 11/04/16 17:54 11/04/16 17:54 11/04/16 17:54 11/04/16 17:54 Interpretation: Normal Notes: PHYSICAL EXAMINATION: GENERAL: Well-appearing, well-nourished and in no acute distress. HEAD: Atraumatic, normocephalic. EYES: Pupils equal round and reactive to light, extraocular movements intact, sclera anicteric, conjunctiva are normal. ENT: nares patent, oropharynx clear without exudates. Moist mucous membranes. NECK: Normal range of motion, supple without lymphadenopathy LUNGS: Breath sounds clear to auscultation bilaterally and equal. No wheezes rales or rhonchi. HEART: Regular rate and rhythm without murmurs ABDOMEN: Soft, nontender, normoactive bowel sounds. No guarding, no rebound. No masses appreciated. EXTREMITIES: Normal range of motion, no pitting or edema. No cyanosis. NEUROLOGICAL: No focal neurological deficits. Moves all extremities spontaneously and on command. PSYCH: Normal mood, normal affect. SKIN: Warm, Dry, normal turgor, no rashes or lesions noted. Course - Re-evaluation Re-evalutation: 11/04/16 20:23 Patient presents with chronic left lower abdominal pain for the past 2 months has been getting progressively worse. On exam, she does have mild left lower and left adnexal tenderness neither of which is more tender than the other. No rebound or guarding. No abdominal pain in any location and no flank tenderness. Laboratories are unremarkable. I suspect the patient likely has chronic functional abdominal pain given her frequent visits to the emergency department for various pain-related complaints, history of anxiety, depression, ADHD, and other functional symptoms. I related this to her and have encouraged her to follow-up with psychiatry and GI for colonoscopy. Will obtain a transvaginal ultrasound to exclude a left ovarian mass. She has already had a CT of the abdomen and pelvis at [facility] for this abdominal pain which was normal and I do not believe the risks of repeated CT imaging to this young female with a potential benefits as I have a very low clinical suspicion for any acute life-threatening diagnosis that would be better clarified using CT imaging. Patient is in agreement with this 11/04/16 22:08 Transvaginal ultrasound does not demonstrate any acute findings. Unfortunately left ovary was not able to be visualized due to bowel gas but again my overall clinical suspicion for TOA, ovarian torsion, were very low and the larger question was if patient had a large cyst on that side that could be causing some intermittent discomfort. I related the patient the findings of her ultrasound. I have encouraged her to follow-up with her [employer] WORKER as well as primary care provider.At this time will discharge with return precautions and follow-up recommendations. Verbal discharge instructions given a the bedside and opportunity for questions given. Medication warnings reviewed. Patient is in agreement with this plan and has verbalized understanding of return precautions and the need for primary care follow-up in the next 24-72 hours. - Vital Signs Vital signs: Temp Pulse Resp BP Pulse Ox 97.6 F 67 18 119/72 100 11/04/16 21:45 11/04/16 21:45 11/04/16 21:45 11/04/16 21:45 11/04/16 21:45 - Laboratory Result Diagrams: 11/04/16 18:20 11/04/16 18:20 Laboratory results interpreted by me: 11/04/16 11/04/16 18:20 18:20 Hct 35.8 L Sodium 145.3 H - Diagnostic Test Radiology reviewed: Reports reviewed Discharge - Discharge Clinical Impression: Left lower quadrant abdominal pain of unknown etiology Condition: Good Disposition: HOME, SELF-CARE Additional Instructions: You have been seen in the Emergency Department (ED) for abdominal pain. Your evaluation did not identify a clear cause of your symptoms but was generally reassuring. We are trialing a course of antibiotics to see if this will improve your symptoms. Please take as directed. Please follow up with your doctor as soon as possible regarding today's emergent visit and the symptoms that are bothering you. Return to the ED if your abdominal pain worsens or fails to improve, you develop bloody vomiting, bloody diarrhea, you are unable to tolerate fluids due to vomiting, fever greater than 101, or other symptoms that concern you. Prescriptions: Ciprofloxacin HCl [Cipro 500 mg Tablet] 500 mg PO BID #20 tablet Metronidazole [Flagyl 500 mg Tablet] 500 mg PO Q6H #40 tablet Referrals: HERMILO BLANTON MD [Primary Care Provider] - Follow up in 3-5 days
[2016-11-04 23:58] VITALS: BP 119/72
== END 2016-11-04 22:00 | disposition home or self-care (01) ==
LOC: ER 17:40
DX: G89.29 Other chronic pain (principal); R10.32 Left lower quadrant pain; E11.9 Type 2 diabetes mellitus without complications; Z88.8 Allergy status to other drugs, medicaments and biological substances; Z88.0 Allergy status to penicillin
CPT/HCPCS: 36415; 76830; 80053; 81001; 83690; 84703; 85025; 93976; 99284

== ENCOUNTER 2017-01-26 14:18 | Emergency (ER) | payer SELFPAY ==
[2017-01-26] MEDS ORDERED: LORAZEPAM 0.5 MG TABLET PO ONE (15:14)
[2017-01-26] MEDS ORDERED: DIPHENHYDRAMINE HCL 50 MG CAPSULE PO ONE (15:14)
--- NOTE | 2017-01-26 16:46 | ER Document Report ---
ED Allergic Reaction - General Chief Complaint: Allergic Reaction Stated Complaint: POSSIBLE ALLERGIC REACTION Time Seen by Provider: 01/26/17 14:59 Notes: Patient is a 21-year-old female who presents emergency department complaining of allergic reaction. Patient states that approximately 130 this afternoon she was in a restaurant eating lunch with family and the reduced had mixed up their orders and had put any food. Patient states that she has an allergy to Ambien which she feels like she is difficulty swallowing in her mouth goes numb. Patient states that after she is having difficulty breathing, swallowing, abnormality as well as chest pressure. Patient states that she waited for it to subside as opposed to taking Benadryl which she states normally resolved her symptoms whenever she eats onion. When her symptoms did not improve she felt was appropriate to come to the emergency department. Patient does admit to history of anxiety and depression. She has taken herself off medications. She states that her mouth numbness and difficulty swallowing has improved but she still feels short of breath. Patient talking in full sentences without any evidence of respiratory distress. TRAVEL OUTSIDE OF THE [place] IN LAST 30 DAYS: No - Related Data Allergies/Adverse Reactions: prednisone [Prednisone] Allergy (Unknown, Verified 01/26/17 14:23) amoxicillin [Amoxicillin] Allergy (Verified 01/26/17 14:23) ondansetron HCl [From Zofran] Allergy (Verified 01/26/17 14:23) Past Medical History - Social History Smoking Status: Never Smoker Chew tobacco use (# tins/day): No Drug Abuse: None Family History: Reviewed & Not Pertinent, Arthritis, CAD, CVA, DM, Hyperlipidemia, Hypertension, Malignancy, Thyroid Disfunction Patient has suicidal ideation: No Patient has homicidal ideation: No - Past Medical History Cardiac Medical History: Reports: Hx Hypercholesterolemia Pulmonary Medical History: Reports: Hx Bronchitis Endocrine Medical History: Reports: Hx Diabetes Mellitus Type 2 Renal/ Medical History: Reports: Hx Ectopic . Denies: Hx Peritoneal Dialysis GI Medical History: Reports: Hx Gastroesophageal Reflux Disease Musculoskeltal Medical History: Reports Hx Musculoskeletal Deformity - sciatica , Reports Hx Musculoskeletal Trauma - feet and fingers Psychiatric Medical History: Reports: Hx Anxiety, Hx Attention Deficit Hyperactivity Disorder, Hx Bipolar Disorder, Hx Depression Traumatic Medical History: Reports: Hx Fractures - fingers and feet Past Surgical History: Reports: Hx Adenoidectomy, Hx Oral Surgery, Hx Orthopedic Surgery - bilateral ankle, Hx Tonsillectomy - Immunizations Immunizations up to date: Yes Hx Diphtheria, Pertussis, Tetanus Vaccination: Yes Review of Systems - Review of Systems Constitutional: No symptoms reported EENT: See HPI Cardiovascular: See HPI Respiratory: See HPI Skin: No symptoms reported Neurological/Psychological: See HPI -: Yes All other systems reviewed and negative Physical Exam - Vital signs Vitals: Temp Pulse Resp BP Pulse Ox 98.9 F 90 18 137/74 H 98 01/26/17 14:22 01/26/17 14:22 01/26/17 14:22 01/26/17 14:22 01/26/17 14:22 - Notes Notes: PHYSICAL EXAM GENERAL: Alert, interacts well. HEAD: Normocephalic, atraumatic. EYES: Pupils equal, round, and reactive to light. Extraocular movements intact. ENT: Oral mucosa moist, tongue midline. NECK: Full range of motion. Supple. Trachea midline. LUNGS: Clear to auscultation bilaterally, no wheezes, rales, or rhonchi. No respiratory distress. HEART: Regular rate and rhythm. No murmurs, gallops, or rubs. ABDOMEN: Soft, nondistended, nontender. No guarding, rebound, or rigidity.. Bowel sounds present in all 4 quadrants. EXTREMITIES: Moves all 4 extremities spontaneously. No edema, radial and dorsalis pedis pulses 2/4 bilaterally. No cyanosis. NEUROLOGICAL: Alert and oriented x4. Normal speech. PSYCH: Normal affect, normal mood. SKIN: Warm, dry, normal turgor. No rashes or lesions noted. Course - Re-evaluation Re-evalutation: 01/26/17 21:32 Patient is a 21-year-old female who is hemodynamic stable, no acute distress and afebrile. No evidence for anaphylaxis at this time. Patient is speaking in complete sentences with no evidence of respiratory distress. Patient received Benadryl and Ativan at the bedside with complete resolution of her symptoms. Patient stable for discharge home with instruction to follow-up with her primary and psychiatrist. Patient is agreeable with plan. - Vital Signs Vital signs: Temp Pulse Resp BP Pulse Ox 98.9 F 62 17 123/76 99 01/26/17 14:22 01/26/17 17:04 01/26/17 17:04 01/26/17 17:04 01/26/17 17:04 - EKG Interpretation by Me EKG shows normal: Sinus rhythm Rate: Normal Rhythm: NSR When compared to previous EKG there are: No significant change Discharge - Discharge Clinical Impression: Anxiety Allergic reaction Qualifiers: Encounter type: initial encounter Qualified Code(s): T78.40XA - Allergy, unspecified, initial encounter Condition: Good Disposition: HOME, SELF-CARE Instructions: Acute Allergic Reaction ([facility]), Food Allergy ([facility]), Use of Diphenhydramine, Anxiety ([facility]) Forms: Return to Work Referrals: HERMILO BLANTON MD [Primary Care Provider] - Follow up as needed
[2017-01-26 17:07] VITALS: BP 123/76
--- NOTE | 2017-01-26 19:58 | EKG REPORT ---
SEVERITY:- NORMAL ECG - SINUS RHYTHM : Confirmed by: Chong Tillman MD 26-Jan-2017 19:57:52
== END 2017-01-26 17:07 | disposition home or self-care (01) ==
LOC: ER 14:18
DX: T78.40XA Allergy, unspecified, initial encounter (principal); X58.XXXA Exposure to other specified factors, initial encounter; F41.9 Anxiety disorder, unspecified; R06.02 Shortness of breath; R20.0 Anesthesia of skin; R13.10 Dysphagia, unspecified; R07.89 Other chest pain; Z91.14 Patient's other noncompliance with medication regimen; Z88.8 Allergy status to other drugs, medicaments and biological substances; Z88.0 Allergy status to penicillin; E11.9 Type 2 diabetes mellitus without complications
CPT/HCPCS: 93005; 93010; 99283

== ENCOUNTER 2017-02-22 13:10 | Emergency (ER) | payer OTHER ==
[2017-02-22] MEDS ORDERED: METOCLOPRAMIDE HCL INJ/PF 10 MG/2 ML SDV IV ONE (13:20)
[2017-02-22] MEDS ORDERED: NORMAL SALINE 1000 ML 1,000 ML IV ONE (13:20)
--- NOTE | 2017-02-22 13:21 | ER Document Report ---
ED Medical Screen (RME) - General Chief Complaint: Nausea/Vomiting Stated Complaint: NAUSEA Time Seen by Provider: 02/22/17 13:20 TRAVEL OUTSIDE OF THE [place] IN LAST 30 DAYS: No - HPI Notes: 02/22/17 13:20 Nausea vomiting diarrhea for 1 week abdominal pain diffuse for greater than 1 week. - Related Data Allergies/Adverse Reactions: prednisone [Prednisone] Allergy (Unknown, Verified 02/22/17 13:14) amoxicillin [Amoxicillin] Allergy (Verified 02/22/17 13:14) ondansetron HCl [From Zofran] Allergy (Verified 02/22/17 13:14) Past Medical History - Past Medical History Cardiac Medical History: Reports: Hx Hypercholesterolemia Pulmonary Medical History: Reports: Hx Bronchitis Endocrine Medical History: Reports: Hx Diabetes Mellitus Type 2 Renal/ Medical History: Reports: Hx Ectopic . Denies: Hx Peritoneal Dialysis GI Medical History: Reports: Hx Gastroesophageal Reflux Disease Musculoskeltal Medical History: Reports Hx Musculoskeletal Deformity - sciatica , Reports Hx Musculoskeletal Trauma - feet and fingers Psychiatric Medical History: Reports: Hx Anxiety, Hx Attention Deficit Hyperactivity Disorder, Hx Bipolar Disorder, Hx Depression Traumatic Medical History: Reports: Hx Fractures - fingers and feet Past Surgical History: Reports: Hx Adenoidectomy, Hx Oral Surgery, Hx Orthopedic Surgery - bilateral ankle, Hx Tonsillectomy - Immunizations Immunizations up to date: Yes Hx Diphtheria, Pertussis, Tetanus Vaccination: Yes Review of Systems - Review of Systems Constitutional: Other - Nausea vomiting diarrhea abdominal pain greater than 1 week Physical Exam - Vital signs Vitals: Temp Pulse Resp BP Pulse Ox 98.5 F 63 16 122/64 97 02/22/17 13:12 02/22/17 13:12 02/22/17 13:12 02/22/17 13:12 02/22/17 13:12 - Abdominal Inspection: Normal Distension: No distension Bowel sounds: Normal Tenderness: Nontender Organomegaly: No organomegaly Course - Re-evaluation Re-evalutation: 02/22/17 13:21 I have greeted and performed a rapid initial assessment of this patient. A comprehensive ED assessment and evaluation of the patient, analysis of test results and completion of the medical decision making process will be conducted by additional ED providers. - Vital Signs Vital signs: Temp Pulse Resp BP Pulse Ox 98.5 F 63 16 122/64 97 02/22/17 13:12 02/22/17 13:12 02/22/17 13:12 02/22/17 13:12 02/22/17 13:12
[2017-02-22 13:49] LABS: ABSOLUTE EOSINOPHILS # (AUTO) 0.1 10^3/uL (0.0-0.6); ABSOLUTE MONOCYTES (AUTO) 0.4 10^3/uL (0.1-1.4); ABSOLUTE NEUT (AUTO) 3.5 10^3/uL (1.7-8.2); BASOPHILS % (AUTO) 0.3 % (0-2); EOSINOPHILS % (AUTO) 0.9 % (0-6); HEMATOCRIT 38.6 % (36.0-47.0); HEMOGLOBIN 13.5 g/dL (12.0-15.5); HGB HCT DIFFERENCE 1.9; LYMPHOCYTES % (AUTO) 33.1 % (13-45); MEAN CORPUSCULAR HEMOGLOBIN 30.2 pg (27.0-33.4); MEAN CORPUSCULAR VOLUME 86 fl (80-97); MONOCYTES % (AUTO) 6.5 % (3-13); RED BLOOD COUNT 4.47 10^6/uL (3.72-5.28); RED CELL DISTRIBUTION WIDTH 12.4 % (11.5-14.0); SEGMENTED NEUTROPHILS % (AUTO) 59.2 % (42-78); WHITE BLOOD COUNT 5.9 10^3/uL (4.0-10.5)
--- NOTE | 2017-02-22 13:49 | ER Document Report ---
ED GI/ - General Chief Complaint: Nausea/Vomiting Stated Complaint: NAUSEA Time Seen by Provider: 02/22/17 13:20 Information source: Patient Notes: 21-year-old female with past medical history including sciatica, migraines, ADHD , and depression who presents with 6 months of intermittent lower abdominal suprapubic "pain". She denies any radiation, she denies any aggravating or relieving factors other than worsening pain with sex. She denies any missed menstrual periods, dysuria, vaginal discharge, or flank pain. Patient states she went to her BAND BOOKER who "would not test for anything". She also states she has had 2-3 weeks of some intermittent vomiting. She denies any diarrhea. She denies any recent antibiotics. She denies any recent trips or travel. TRAVEL OUTSIDE OF THE [place] IN LAST 30 DAYS: No - HPI Patient complains to provider of: Abdominal pain Onset: Other - See above Timing/Duration: Gradual Quality of pain: Achy, Burning Severity at maximum: Moderate Severity in ED: None Pain Level: 0 Location: Suprapubic Vaginal bleeding (Compared to normal period): None Menstrual period history: denies: Abnormal Sexual history: Active Associated symptoms: Other - See above Exacerbated by: Denies Relieved by: Denies Similar symptoms previously: Yes Recently seen / treated by doctor: Yes - Related Data Allergies/Adverse Reactions: prednisone [Prednisone] Allergy (Unknown, Verified 02/22/17 13:14) amoxicillin [Amoxicillin] Allergy (Verified 02/22/17 13:14) ondansetron HCl [From Zofran] Allergy (Verified 02/22/17 13:14) Past Medical History - General Information source: Patient - Social History Smoking Status: Never Smoker Chew tobacco use (# tins/day): No Frequency of alcohol use: None Drug Abuse: None Family History: Reviewed & Not Pertinent, Arthritis, CAD, CVA, DM, Hyperlipidemia, Hypertension, Malignancy, Thyroid Disfunction - Past Medical History Cardiac Medical History: Reports: Hx Hypercholesterolemia Pulmonary Medical History: Reports: Hx Bronchitis Endocrine Medical History: Reports: Hx Diabetes Mellitus Type 2 Renal/ Medical History: Reports: Hx Ectopic . Denies: Hx Peritoneal Dialysis GI Medical History: Reports: Hx Gastroesophageal Reflux Disease Musculoskeltal Medical History: Reports Hx Musculoskeletal Deformity - sciatica , Reports Hx Musculoskeletal Trauma - feet and fingers Psychiatric Medical History: Reports: Hx Anxiety, Hx Attention Deficit Hyperactivity Disorder, Hx Bipolar Disorder, Hx Depression Traumatic Medical History: Reports: Hx Fractures - fingers and feet Past Surgical History: Reports: Hx Adenoidectomy, Hx Oral Surgery, Hx Orthopedic Surgery - bilateral ankle, Hx Tonsillectomy - Immunizations Immunizations up to date: Yes Hx Diphtheria, Pertussis, Tetanus Vaccination: Yes Review of Systems - Review of Systems Constitutional: denies: Fever EENT: denies: Eye discharge, Blurred vision, Nose discharge Cardiovascular: denies: Chest pain, Palpitations, Heart racing Respiratory: denies: Short of breath Gastrointestinal: Vomiting. denies: Abdomen distended, Diarrhea, Constipation Genitourinary: denies: Dysuria Musculoskeletal: denies: Leg swelling Skin: Other - no hives. denies: Rash Neurological/Psychological: Other - no slurred speech -: Yes All other systems reviewed and negative Physical Exam - Vital signs Vitals: Temp Pulse Resp BP Pulse Ox 98.5 F 63 16 122/64 97 02/22/17 13:12 02/22/17 13:12 02/22/17 13:12 02/22/17 13:12 02/22/17 13:12 Notes: Reviewed vital signs and nursing note as charted by RN. CONSTITUTIONAL: Alert and oriented and responds appropriately to questions. Well -appearing; well-nourished HEAD: Normocephalic; atraumatic EYES: Sclerae non-icteric CARD: Regular rate and rhythm; no murmurs, no clicks, no rubs, no gallops; symmetric distal pulses RESP: Normal chest excursion without splinting or tachypnea; breath sounds clear and equal bilaterally; no wheezes, no rhonchi, no rales ABD/GI: Normal bowel sounds; non-distended; soft, non-tender to deep palpation of all 4 quadrants of the abdomen, no rebound, no guarding; no palpable organomegaly or masses BACK: The back appears normal and is non-tender to palpation, there is no CVA tenderness EXT: Normal ROM in all joints; non-tender to palpation; no cyanosis, no effusions, no edema SKIN: Normal color for age and race; warm; dry; good turgor; capillary refill < 2 seconds; no acute lesions noted NEURO: Moves all extremities equally; Motor and sensory function intact PSYCH: The patient's mood and manner are appropriate. Grooming and personal hygiene are appropriate. Course - Re-evaluation Re-evalutation: 02/22/17 13:49 Given the history and physical examination with this prolonged course of abdominal pain with no imaging studies, we will perform a CT scan of the abdomen and pelvis, basic labs, liver panel, lipase, urinalysis, perform a pelvic examination. I have an extremely low pretest probability for acute ovarian torsion or acute appendicitis. 02/22/17 14:45 Patient still has no pain to the abdomen. Pelvic examination shows no external or internal lesions, no cervical motion tenderness, no adnexal masses or tenderness. Patient is not . Labs as recorded. Normal white blood cell count. No obvious urinary tract infection. No ketones in the urine. Normal liver panel and lipase. CT scan is pending. 02/22/17 15:46 CT scan of the abdomen and pelvis as recorded. The patient states she would like something to eat and drink. Patient still has no tenderness on my repeat examination. If patient is able to tolerate p.o.'s, patient will be discharged home with strict return precautions and follow-up with the culture results. - Vital Signs Vital signs: Temp Pulse Resp BP Pulse Ox 98.5 F 63 16 122/64 97 02/22/17 13:12 02/22/17 13:12 02/22/17 13:12 02/22/17 13:12 02/22/17 13:12 - Laboratory Result Diagrams: 02/22/17 13:25 02/22/17 13:25 Laboratory results interpreted by me: 02/22/17 13:36 Urine Urobilinogen 4.0 H Discharge - Discharge Clinical Impression: Pelvic pain Vomiting Qualifiers: Vomiting type: unspecified Vomiting Intractability: non-intractable Nausea presence: with nausea Qualified Code(s): R11.2 - Nausea with vomiting, unspecified Condition: Good Disposition: HOME, SELF-CARE Additional Instructions: Come back immediately with any repeat vomiting, repeat pain, change in location or quality of pain, fevers, or any other acute problems. I have provided antinausea medications and a new BAND BOOKER for follow-up Prescriptions: Promethazine HCl [Phenergan 25 mg Tablet] 25 mg PO Q6H PRN #15 tablet PRN Reason: Referrals: HERMILO BLANTON MD [Primary Care Provider] - Follow up as needed JOSE ROSE, [CL[facility]NARD] - Follow up as needed
[2017-02-22 14:00] LABS: APPEARANCE,URINE SLIGHTLY-CLOUDY; BILIRUBIN,URINE NEGATIVE (NEGATIVE); GLUCOSE, URINE NEGATIVE (NEGATIVE); KETONES,URINE NEGATIVE (NEGATIVE); LEUKOCYTE ESTERASE,URINE NEGATIVE (NEGATIVE); NITRITE,URINE NEGATIVE (NEGATIVE); PROTEIN,URINE NEGATIVE (NEGATIVE); URINE SPECIFIC GRAVITY 1.025
[2017-02-22 14:02] LABS: ALANINE AMINOTRANSFERASE 33 U/L (9-52); ALBUMIN 4.5 g/dL (3.5-5.0); ALKALINE PHOSPHATASE 83 U/L (38-126); ANION GAP 11 (5-19); ASPARTATE AMINO TRANSFERASE 28 U/L (14-36); BILIRUBIN,DIRECT 0.3 mg/dL (0.0-0.4); BILIRUBIN,TOTAL 0.9 mg/dL (0.2-1.3); BLOOD UREA NITROGEN 12 mg/dL (7-20); CALCIUM 9.5 mg/dL (8.4-10.2); CARBON DIOXIDE 25 mmol/L (22-30); CHLORIDE 106 mmol/L (98-107); CREATININE RESULT 0.67 mg/dL (0.52-1.25); GLUCOSE 97 mg/dL (75-110); LIPASE 86.5 U/L (23-300); SODIUM 141.9 mmol/L (137-145); TOTAL PROTEIN 7.4 g/dL (6.3-8.2)
[2017-02-22 14:12] LABS: URINE BARBITURATES SCREEN NEGATIVE; URINE METHADONE SCREEN NEGATIVE; URINE OPIATES LOW NEGATIVE; URINE PHENCYCLIDINE SCREEN NEGATIVE
--- NOTE | 2017-02-22 15:43 | RADIOLOGY REPORT (SQ) ---
EXAM DESCRIPTION: CT ABD/PELVIS WITH IV ONLY COMPLETED DATE/TIME: 02/22/2017 3:31 pm REASON FOR STUDY: 16, lower pelvic pain intermittently for 6 months, COMPARISON: None. TECHNIQUE: CT scan of the abdomen and pelvis performed using helical scanning technique with dynamic intravenous contrast injection. No oral contrast. Images reviewed with lung, soft tissue, and bone windows. Reconstructed coronal and sagittal MPR imag es reviewed. Delayed images for evaluation of the urinary system also acquired. All images stored on PACS. All CT scanners at this facility use dose modulation, iterative reconstruction, and/or weight based d osing when appropriate to reduce radiation dose to as low as reasonably achievable (ALARA). [facility]: Dose Right [facility]: CareDose [facility]: Dose Right [facility]: Teradose 4D [facility]: Livra Panels CONTRAST TYPE AND DOSE: contrast/concentration: Isovue 370.00 mg/ml; Total Contrast Delivered: 98.0 ml; Total Saline Delivered: 70.0 ml RENAL FUNCTION: Creatinine 0.67 RADIATION DOSE: Up-to-date CT equipment and radiation dose reduction techniques were employed. CTDIv ol: NaN - NaN mGy. DLP: 0 mGy-cm.. LIMITATIONS: No oral contrast FINDINGS: LOWER CHEST: No significant findings. No nodules or infiltrates. LIVER: Normal size. No masses. No dilated ducts. SPLEEN: Normal size. No focal lesions. PANCREAS: No masses. No significant calcifications. No adjacent inflammation or peripancreatic fluid collections. Pancreatic duct not dilated. GALLBLADDER: No identified stones by CT criteria. No inflammatory changes to suggest cholecystitis. ADRENAL GLANDS: No significant masses or asymmetry. RIGHT KIDNEY AND URETER: No solid masses. No significant calcifications. No hydronephrosis or hyd roureter. LEFT KIDNEY AND URETER: No solid masses. No significant calcifications. No hydronephrosis or hydr oureter. AORTA AND VESSELS: No aneurysm. No dissection. Renal arteries, SMA, celiac without stenosis. RETROPERITONEUM: No retroperitoneal adenopathy, hemorrhage or masses. BOWEL AND PERITONEAL CAVITY: No masses or inflammatory changes. No free fluid or peritoneal masses. APPENDIX: Normal. PELVIS: No mass. No free fluid. Normal bladder. ABDOMINAL WALL: No masses. No hernias. BONES: No significant or acute findings. OTHER: No other significant finding. IMPRESSION: NO SIGNIFICANT OR ACUTE FINDING IN THE ABDOMEN OR PELVIS ON CT SCAN WITH IV CONTRAST. TECHNICAL DOCUMENTATION: JOB ID: [id number] Quality ID # [id number]: Final reports with documentation of one or more dose reduction techniques (e.g., Au tomated exposure control, adjustment of the mA and/or kV according to patient size, use of iterative reconstruction technique) 2010 [employer]- All Rights Reserved
[2017-02-22 16:06] VITALS: BP 100/66
[2017-02-22 16:29] LABS: CHLAM PCR NOT DETECTED (NOT DETECT)
== END 2017-02-22 16:11 | disposition home or self-care (01) ==
LOC: ER 13:10
DX: R11.2 Nausea with vomiting, unspecified (principal); R10.2 Pelvic and perineal pain; F90.9 Attention-deficit hyperactivity disorder, unspecified type; F32.9 Major depressive disorder, single episode, unspecified; R10.9 Unspecified abdominal pain
CPT/HCPCS: 99284; 96361; 96374; 36415; 87210; 84702; 83690; 85025; 80053; 81001; 80307; 87491; 87591; 74177; J2765; J7030

== ENCOUNTER 2017-05-28 18:15 | Emergency (ER) | payer OTHER ==
[2017-05-28] MEDS ORDERED: DIPHENHYDRAMINE HCL 50 MG/ML VIAL IV ONE (18:56)
[2017-05-28] MEDS ORDERED: PROCHLORPERAZINE EDISYLATE INJ 10 MG/2 ML VIAL IV ONE (18:56)
[2017-05-28] MEDS ORDERED: KETOROLAC TROMETHAMINE INJ/PF 30 MG/1 ML SDV IV ONE (18:56)
--- NOTE | 2017-05-28 19:02 | ER Document Report ---
HPI - HPI Pain Level: 5 Notes: Patient is a 21-year-old female with a history of migraines who presents ED complaining of a intermittent headache over the last 2 weeks. Patient states that she is getting over a URI, but continues to have a headache. Patient states that the headache is described as an ache is primarily left-sided, but will originate from the back of the head at times as well. Patient states that her symptoms wax and wane and she has been using her ibuprofen at home as previously directed by her PCM. Patient states that she is still eating and drinking without any difficulty she still urinating normally and having normal bowel movements. Patient states that on occasion her ears will hurt as well bilaterally. She no longer has any nasal congestion or discharge. Denies any fever, head injury, neck pain, changes in vision/speech/mentation/hearing, URI, sore throat, chest pain, palpitations, syncope, cough, shortness of breath, wheeze, dyspnea, abdominal pain, nausea/vomiting/diarrhea, urinary retention, dysuria, hematuria, loss of control of bowel or bladder, numbness/tingling, saddle anesthesia, muscle paralysis/weakness, or rash. - ROS Notes: REVIEW OF SYSTEMS: CONSTITUTIONAL : Denies fever, chills, or sweats. Denies recent illness. EENT: Denies eye, ear, throat, or mouth pain or symptoms. Denies nasal or sinus congestion or discharge. Denies throat, tongue, or mouth swelling or difficulty swallowing. CARDIOVASCULAR: Denies chest pain. Denies palpitations or racing or irregular heart beat. Denies ankle edema. RESPIRATORY: Denies cough, cold, or chest congestion. Denies shortness of breath, difficulty breathing, or wheezing. GASTROINTESTINAL: Denies abdominal pain or distention. Denies nausea, vomiting , or diarrhea. Denies blood in vomitus, stools, or per rectum. Denies black, tarry stools. Denies constipation. GENITOURINARY: Denies difficulty urinating, painful urination, burning, frequency, blood in urine, or discharge. FEMALE GENITOURINARY: Denies vaginal bleeding, heavy or abnormal periods, irregular periods. Denies vaginal discharge or odor. MUSCULOSKELETAL: Denies back or neck pain or stiffness. Denies joint pain or swelling. SKIN: Denies rash, lesions or sores. HEMATOLOGIC : Denies easy bruising or bleeding. LYMPHATIC: Denies swollen, enlarged glands. NEUROLOGICAL: see hpi. Denies confusion or altered mental status. Denies passing out or loss of consciousness. Denies dizziness or lightheadedness. Denies weakness or paralysis or loss of use of either side. Denies problems with gait or speech. Denies sensory loss, numbness, or tingling. Denies seizures. PSYCHIATRIC: Denies anxiety or stress. Denies depression, suicidal ideation, or homicidal ideation. ALL OTHER SYSTEMS REVIEWED AND NEGATIVE. Dictation was performed using [employer] voice recognition software - REPRODUCTIVE Reproductive: DENIES: : Past Medical History - Social History Smoking Status: Never Smoker Family History: Reviewed & Not Pertinent, Arthritis, CAD, CVA, DM, Hyperlipidemia, Hypertension, Malignancy, Thyroid Disfunction - Past Medical History Cardiac Medical History: Reports: Hx Hypercholesterolemia Pulmonary Medical History: Reports: Hx Bronchitis Endocrine Medical History: Reports: Hx Diabetes Mellitus Type 2 Renal/ Medical History: Reports: Hx Ectopic . Denies: Hx Peritoneal Dialysis GI Medical History: Reports: Hx Gastroesophageal Reflux Disease Musculoskeltal Medical History: Reports Hx Musculoskeletal Deformity - sciatica , Reports Hx Musculoskeletal Trauma - feet and fingers Psychiatric Medical History: Reports: Hx Anxiety, Hx Attention Deficit Hyperactivity Disorder, Hx Bipolar Disorder, Hx Depression Traumatic Medical History: Reports: Hx Fractures - fingers and feet Past Surgical History: Reports: Hx Adenoidectomy, Hx Oral Surgery, Hx Orthopedic Surgery - bilateral ankle, Hx Tonsillectomy - Immunizations Immunizations up to date: Yes Hx Diphtheria, Pertussis, Tetanus Vaccination: Yes Vertical Provider Document - CONSTITUTIONAL Agree With Documented VS: Yes Notes: PHYSICAL EXAMINATION: GENERAL: Well-appearing, well-nourished and in no acute distress. A&Ox4 HEAD: Atraumatic, normocephalic. Non-tender. No olson sign EYES: Pupils equal round and reactive to light, extraocular movements intact, sclera anicteric, conjunctiva are normal. No raccoon eyes/entrapment. Non- tender. ENT: EAC clear b/l. TM's intact b/l without erythema, fluid, or perforation. Nares patent and without discharge. oropharynx clear without exudates. No tonsilar hypertrophy or erythema. Moist mucous membranes. No sinus tenderness. No hemotympanum/CSF discharge. NECK: Normal range of motion, supple without lymphadenopathy. No rigidity. No midline tenderness. Spurling negative. NEXUS negative. + mild C-paraspinal mm tenderness b/l. LUNGS: Breath sounds clear to auscultation bilaterally and equal. No wheezes rales or rhonchi. HEART: Regular rate and rhythm without murmurs, rubs, gallops. Musculoskeletal: Ext b/l: FROM to passive/active. Strength 5+/5. No deficits noted. No bony tenderness of extremities. Back: FROM to passive/active. Strength 5+/5. No vertebral point tenderness, stepoffs, or deformities. No other bony tenderness or ecchymosis. SLR negative b/l. Extremities: No cyanosis, clubbing, or edema b/l. Peripheral pulses 2+. Capillary refill less than 2 seconds. NEUROLOGICAL: MMSE intact. Cranial nerves grossly intact. Normal speech, normal gait. Normal sensory, motor exams. Reflexes 2+ b/l. DOC's negative. Pronator drift negative. Heel/heck, finger/nose wnl. Walking on heels/toes and heel to toe wnl. PSYCH: Normal mood, normal affect. SKIN: Warm, Dry, normal turgor, no rashes or lesions noted. - INFECTION CONTROL TRAVEL OUTSIDE OF THE [place] IN LAST 30 DAYS: No - RESPIRATORY O2 Sat by Pulse Oximetry: 98 Course - Re-evaluation Re-evalutation: 05/28/17 20:40 Patient is an afebrile, well-hydrated, 21-year-old female who presents the ED with a migraine versus tension type headache. Vitals are stable. PE is otherwise unremarkable for any focal neurological deficits. MMSE intact. No imaging warranted at this time based on H&P. Low suspicion for any acute glaucoma, temporal arteritis, meningitis, intracranial hemorrhage, ischemic stroke, or fracture at this time. Patient is aware that her condition can change from initial presentation and that patient was given she needs to monitor symptoms closely for any acute changes. Toradol, Compazine, Benadryl IV. Patient is tolerating p.o. without any difficulties. Patient was noted to have improvement in her headache and almost complete resolution upon recheck about 40 minutes after medicines were given. We will discharge home in stable condition. Recheck with your PCM in 3-5 days. Consider consult with a neurologist. Return to the ED with any worsening/concerning symptoms otherwise as reviewed in discharge. Patient is in agreement. - Vital Signs Vital signs: Temp Pulse Resp BP Pulse Ox 98.8 F 80 16 128/64 H 98 05/28/17 18:18 05/28/17 18:18 05/28/17 18:18 05/28/17 18:18 05/28/17 18:18 Discharge - Discharge Clinical Impression: Headache Qualifiers: Headache type: unspecified Headache chronicity pattern: acute headache Intractability: not intractable Qualified Code(s): R51 - Headache Condition: Stable Disposition: HOME, SELF-CARE Instructions: Intravenous Compazine for Headaches ([facility]), Use of Diphenhydramine , Headache ([facility]), Toradol Injection ([facility]) Additional Instructions: Rest, Ice Tylenol/ibuprofen as needed Light stretches daily Strength exercises as able Moist heat and massage may help F/u with your PCP in 3-5 days for a recheck Consider consult(s) with neurology for ongoing/worsening symptoms Return to the ED with any worsening symptoms and/or development of fever, headache, neck pain/stiffness, chest pain, palpitations, syncope, shortness of breath, trouble breathing, abdominal pain, n/v/d, blood in stool/urine, loss of control of bowel/bladder, urinary retention, muscle weakness/paralysis, saddle anesthesia, numbness/tingling, or other worsening symptoms that are concerning to you. Forms: Elevated Blood Pressure Referrals: OBDULIO MAYER MD [[facility]] - Follow up as needed
[2017-05-28 20:48] VITALS: BP 108/49
== END 2017-05-28 20:45 | disposition home or self-care (01) ==
LOC: ER 18:15
DX: R51 Headache (principal)
CPT/HCPCS: 99284; J1200; J1885; J0780

== ENCOUNTER 2017-07-08 23:51 | Emergency (ER) | payer OTHER ==
[2017-07-09] MEDS ORDERED: HYDROCODONE/ACETAMINOPHEN 5-325 MG TABLET PO ONE (00:38)
--- NOTE | 2017-07-09 00:41 | ER Document Report ---
HPI - HPI Patient complains to provider of: Ankle injury Onset: This evening Onset/Duration: Sudden Quality of pain: Achy Pain Level: 4 Context: Patient states she was walking, tripped over lights and rolled her ankle injuring her left ankle and foot. Patient complains of pain with ambulation. Associated Symptoms: Other - Left ankle pain Exacerbated by: Standing, Movement, Walking Relieved by: Denies Similar symptoms previously: No Recently seen / treated by doctor: No - ROS ROS below otherwise negative: Yes Systems Reviewed and Negative: Yes All other systems reviewed and negative - GASTROINTESTINAL Gastrointestinal: DENIES: Nausea, Patient vomiting - REPRODUCTIVE Reproductive: DENIES: : - MUSCULOSKELETAL Musculoskeletal: REPORTS: Extremity pain, Swelling - DERM Skin Color: Normal Skin Problems: None Past Medical History - General Information source: Patient - Social History Smoking Status: Never Smoker Frequency of alcohol use: None Drug Abuse: None Occupation: commissary assistant, doctor of nurse anesthesia Lives with: Family Family History: Reviewed & Not Pertinent, Arthritis, CAD, CVA, DM, Hyperlipidemia, Hypertension, Malignancy, Thyroid Disfunction - Past Medical History Cardiac Medical History: Reports: Hx Hypercholesterolemia Pulmonary Medical History: Reports: Hx Bronchitis Endocrine Medical History: Reports: Hx Diabetes Mellitus Type 2 Renal/ Medical History: Reports: Hx Ectopic . Denies: Hx Peritoneal Dialysis GI Medical History: Reports: Hx Gastroesophageal Reflux Disease Musculoskeltal Medical History: Reports Hx Musculoskeletal Deformity - sciatica , Reports Hx Musculoskeletal Trauma - feet and fingers Psychiatric Medical History: Reports: Hx Anxiety, Hx Attention Deficit Hyperactivity Disorder, Hx Bipolar Disorder, Hx Depression Traumatic Medical History: Reports: Hx Fractures - fingers and feet Past Surgical History: Reports: Hx Adenoidectomy, Hx Oral Surgery, Hx Orthopedic Surgery - bilateral ankle, Hx Tonsillectomy - Immunizations Immunizations up to date: Yes Hx Diphtheria, Pertussis, Tetanus Vaccination: Yes Vertical Provider Document - CONSTITUTIONAL Agree With Documented VS: Yes Exam Limitations: No Limitations General Appearance: WD/WN, No Apparent Distress - INFECTION CONTROL TRAVEL OUTSIDE OF THE [place] IN LAST 30 DAYS: No - HEENT HEENT: Atraumatic, Normocephalic - NECK Neck: Normal Inspection - RESPIRATORY Respiratory: No Respiratory Distress O2 Sat by Pulse Oximetry: 16 - CARDIOVASCULAR Pulses: Normal: Dorsalis pedis - MUSCULOSKELETAL/EXTREMETIES Musculoskeletal/Extremeties: MAEW, Tender - Left ankle tenderness over lateral malleolar area with 2+ edema, left lateral foot tenderness to area just inferior of lateral malleolar area, no deformity. negative: Eccymosis - NEURO Level of Consciousness: Awake, Alert, Appropriate Motor/Sensory: No Motor Deficit - DERM Integumentary: Warm, Dry, No Rash Course - Re-evaluation Re-evalutation: 07/09/17 02:24 pt not hypoxic at discharge, erroneous oxygen sat recorded per RN - Vital Signs Vital signs: Temp Pulse Resp BP Pulse Ox 67 18 120/73 16 L 07/09/17 00:01 07/09/17 00:01 07/09/17 00:01 07/09/17 00:01 - Diagnostic Test Radiology reviewed: Pending, Image reviewed Procedures - Immobilization Left Ankle Pre-Proc Neuro Vasc Exam: Normal Immobilizer type: Ankle stirrup Performed by: RN Post-Proc Neuro Vasc Exam: Normal Alignment checked and good: Yes Discharge - Discharge Clinical Impression: Foot pain, left Ankle sprain Qualifiers: Encounter type: initial encounter Involved ligament of ankle: unspecified ligament Laterality: left Qualified Code(s): S93.402A - Sprain of unspecified ligament of left ankle, initial encounter Condition: Stable Disposition: HOME, SELF-CARE Instructions: Ankle Stirrup Splint ([facility]), Use of Crutches ([facility]), Ice & Elevation ([facility]), Oral Narcotic Medication ([facility]), Sprained Ankle ([facility]) Additional Instructions: Return immediately for any new or worsening symptoms Followup with your primary care provider, call tomorrow to make a followup appointment Weightbearing as tolerated Follow-up with orthopedic doctor for any continued pain or problems Prescriptions: Naproxen [Naprosyn 250 Nmg Tablet] 1 tab PO BID #14 tablet Forms: Return to Work Referrals: [facility] [Provider Group] - Follow up as needed
[2017-07-09] MEDS ORDERED: HYDROCODONE/ACETAMINOPHEN 5-325 MG (6 TAB/ER DISP) PO PRN (01:17)
[2017-07-09 01:43] VITALS: BP 124/75
--- NOTE | 2017-07-09 05:19 | RADIOLOGY REPORT (SQ) ---
EXAM DESCRIPTION: 1. Left ankle, 3 views. 2. Left foot, 3 views. CLINICAL HISTORY: fall, rolled ankle, left foot pain COMPARISON: None. FINDINGS: Left ankle: 3 views of the left ankle. No acute fracture or dislocation. The tibial plafond and talar dome are intact. No abnormalities of visualized portions of the base of the fifth metatarsal. Normal osseous mineralization. Edema in the soft tissues adjacent to the lateral malleolus. Left foot: 3 views of the left foot. No acute fracture or dislocation. The tarsals and metatarsals are appropriately aligned. Normal osseous mineralization. IMPRESSION: No acute fracture or dislocation.
== END 2017-07-09 02:11 | disposition home or self-care (01) ==
LOC: ER 23:51
DX: S93.402A Sprain of unspecified ligament of left ankle, initial encounter (principal); X50.9XXA Other and unspecified overexertion or strenuous movements or postures, initial encounter; Y93.01 Activity, walking, marching and hiking; M79.672 Pain in left foot; E11.9 Type 2 diabetes mellitus without complications; Z87.81 Personal history of (healed) traumatic fracture
CPT/HCPCS: 99283; 73610; 73630; L1902

== ENCOUNTER 2017-08-04 15:37 | Emergency (ER) | payer OTHER ==
[2017-08-04] MEDS ORDERED: IPRATROPIUM/ALBUTEROL 0.5-2.5 MG/3 ML AMPUL NEB ONE (16:12)
--- NOTE | 2017-08-04 16:14 | ER Document Report ---
ED Flu Like - General Chief Complaint: Flu Symptoms Stated Complaint: VOMITING Time Seen by Provider: 08/04/17 15:50 Information source: Patient TRAVEL OUTSIDE OF THE [place] IN LAST 30 DAYS: No - HPI Onset: Other - 2 weeks Quality of pain: Achy Severity: Moderate Notes: Patient arrives with complaints of "flulike symptoms" for the last 2 weeks. She states that she has had a sore throat, cough, intermittent nausea vomiting, intermittent fever. She has had a few episodes of posttussive emesis. Last time she vomited was 2 days ago and the last fever she had was 2 days ago. She states she is out of work for the last few days and her boss made her come to the hospital to get checked. She states that she actually feels like she is in the process of improving. She denies any rash. She denies any new abdominal pain. She denies any chest pain or difficulty breathing. No headache or blurred vision. No unilateral numbness tingling or weakness. She denies a history of immunosuppression, asthma, diabetes, cancer, HIV. She is not that she is aware of. She denies any other complaints at this time. - Related Data Allergies/Adverse Reactions: prednisone [Prednisone] Allergy (Unknown, Verified 05/28/17 18:18) amoxicillin [Amoxicillin] Allergy (Verified 05/28/17 18:18) ondansetron HCl [From Zofran] Allergy (Verified 05/28/17 18:18) promethazine [From Phenergan] Allergy (Verified 08/04/17 15:38) Past Medical History - Social History Smoking Status: Unknown if Ever Smoked Family History: Reviewed & Not Pertinent, Arthritis, CAD, CVA, DM, Hyperlipidemia, Hypertension, Malignancy, Thyroid Disfunction - Past Medical History Cardiac Medical History: Reports: Hx Hypercholesterolemia Pulmonary Medical History: Reports: Hx Bronchitis Endocrine Medical History: Reports: Hx Diabetes Mellitus Type 2 Renal/ Medical History: Reports: Hx Ectopic . Denies: Hx Peritoneal Dialysis GI Medical History: Reports: Hx Gastroesophageal Reflux Disease Musculoskeltal Medical History: Reports Hx Musculoskeletal Deformity - sciatica , Reports Hx Musculoskeletal Trauma - feet and fingers Psychiatric Medical History: Reports: Hx Anxiety, Hx Attention Deficit Hyperactivity Disorder, Hx Bipolar Disorder, Hx Depression Traumatic Medical History: Reports: Hx Fractures - fingers and feet Past Surgical History: Reports: Hx Adenoidectomy, Hx Oral Surgery, Hx Orthopedic Surgery - bilateral ankle, Hx Tonsillectomy - Immunizations Immunizations up to date: Yes Hx Diphtheria, Pertussis, Tetanus Vaccination: Yes Review of Systems - Review of Systems -: Yes All other systems reviewed and negative Physical Exam - Vital signs Vitals: Temp Pulse Resp BP Pulse Ox 98.2 F 89 16 123/58 L 98 08/04/17 15:42 08/04/17 15:42 08/04/17 15:42 08/04/17 15:42 08/04/17 15:42 - Notes Notes: GENERAL: alert, cooperative, nontoxic, no distress. HEAD: normocephalic, atraumatic EYES: conjunctiva pink without discharge, no external redness or swelling. EARS: no external swelling, no external redness, no mastoid redness, swelling, tenderness. Ear canals are clear without swelling or drainage. TMs pearly vieira , no redness, no bulging, normal landmarks, no perforation. NOSE: atraumatic, no external swelling. clear rhinorrhea noted. MOUTH/THROAT: mucous membranes moist and pink, posterior pharynx without erythema, swelling, exudate. No trismus or drooling. NECK: soft, supple, full range of motion, no meningismus. CHEST: no distress, lungs clear and equal throughout. No wheezing, rales, rhonchi. Frequent cough noted. CARDIAC: regular rate and rhythm, no murmur, normal capillary refill, normal pulses. No peripheral edema noted. BACK: full range of motion, no CVA tenderness. EXTREMITIES: full range of motion of all extremities. No redness, no swelling. NEURO: alert and oriented -3, no focal deficits, full range of motion of all extremities. PYSCH: appropriate mood, affect. Patient is cooperative. SKIN: pink, warm, dry, no rash. Course - Re-evaluation Re-evalutation: 08/04/17 17:09 Patient is nontoxic appearing with stable vitals. The patient arrives with 2 weeks of flu type symptoms with intermittent fevers, vomiting, cough, sore throat and fatigue. She has a benign exam. She tells me that she actually feels like she started to get better at this time, but her employer made her come in because she missed work. [place] and strep were negative. Chest x-ray is negative for pneumonia. Patient states feels somewhat better after her DuoNeb. She will be discharged home with prescription for albuterol and Tessalon. Instructions to rest, drink plenty of fluids. Follow-up if not better in 1 week , sooner for worsening symptoms, high fever, difficulty breathing or swallowing , or any further concerns. The patient is noted to have elevated blood pressure during today's emergency department visit. The patient was informed of this finding. The patient was instructed that this may be related to pre-hypertension and requires further evaluation with a primary care provider. The patient has no hypertensive symptoms at this time. The patient's emergency department workup and current diagnosis were explained to the patient and or family. Follow-up instructions were provided. Medications if prescribed were discussed. Instructions for when to return to the emergency department including specific worrisome symptoms were discussed with the patient and/or family. - Vital Signs Vital signs: Temp Pulse Resp BP Pulse Ox 98.2 F 89 16 123/58 L 98 08/04/17 15:42 08/04/17 15:42 08/04/17 15:42 08/04/17 15:42 08/04/17 15:42 - Laboratory Laboratory results interpreted by va: 08/04/17 16:20 Urine Protein 30 H - Diagnostic Test Radiology reviewed: Image reviewed, Reports reviewed - Negative chest x-ray Discharge - Discharge Clinical Impression: Viral syndrome Condition: Stable Disposition: HOME, SELF-CARE Instructions: Influenza ([facility]) [id number], Viral Syndrome ([facility]) Additional Instructions: Take medications as prescribed. Drink plenty fluids. Rest. Follow-up if not better in 1 week, sooner for worsening symptoms, high fever, difficulty breathing, or any further concerns. Prescriptions: Benzonatate [Tessalon Perle 100 mg Capsule] 100 mg PO Q8HP PRN #20 cap PRN Reason: Albuterol Sulfate [Proair HFA Inhalation Aerosol 8.5 gm MDI] 2 puff IH Q4H PRN # 1 mdi PRN Reason: Forms: Elevated Blood Pressure, Smoking Cessation Education, Return to Work Referrals: [facility] [Provider Group] - Follow up as needed
--- NOTE | 2017-08-04 16:37 | RADIOLOGY REPORT (SQ) ---
EXAM DESCRIPTION: CHEST PA/LAT COMPLETED DATE/TIME: 08/04/2017 4:28 pm REASON FOR STUDY: cough x 2 weeks COMPARISON: 03/05/2016. EXAM PARAMETERS: NUMBER OF VIEWS: two views TECHNIQUE: Digital Frontal and Lateral radiographic views of the chest acquired. RADIATION DOSE: NA LIMITATIONS: none FINDINGS: LUNGS AND PLEURA: No opacities, masses or pneumothorax. No pleural effusion. MEDIASTINUM AND HILAR STRUCTURES: No masses or contour abnormalities. HEART AND VASCULAR STRUCTURES: Heart normal size. No evidence for failure. BONES: No acute findings. HARDWARE: None in the chest. OTHER: No other significant finding. IMPRESSION: NO SIGNIFICANT RADIOGRAPHIC FINDING IN THE CHEST. TECHNICAL DOCUMENTATION: JOB ID: [id number] [email or web address]- All Rights Reserved
[2017-08-04 16:47] LABS: AMORPHOUS SEDIMENT,URINE 1+ /HPF; APPEARANCE,URINE TURBID; BILIRUBIN,URINE NEGATIVE (NEGATIVE); COLOR,URINE YELLOW; GLUCOSE, URINE NEGATIVE (NEGATIVE); KETONES,URINE NEGATIVE (NEGATIVE); LEUKOCYTE ESTERASE,URINE NEGATIVE (NEGATIVE); NITRITE,URINE NEGATIVE (NEGATIVE); PROTEIN,URINE 30 mg/dL (NEGATIVE); URINE SPECIFIC GRAVITY 1.018; UROBILINOGEN,URINE NEGATIVE mg/dL (<2.0)
[2017-08-04 17:41] VITALS: BP 115/61
== END 2017-08-04 17:40 | disposition home or self-care (01) ==
LOC: ER 15:37
DX: B34.9 Viral infection, unspecified (principal); J02.9 Acute pharyngitis, unspecified; R05 Cough; R11.2 Nausea with vomiting, unspecified; R50.9 Fever, unspecified
CPT/HCPCS: 94640; 99283; 36415; 87070; 87880; 81025; 86308; 81001; 71046; J7620

== ENCOUNTER 2017-08-14 13:04 | Emergency (ER) | payer OTHER ==
--- NOTE | 2017-08-14 13:30 | ER Document Report ---
ED Medical Screen (RME) - General Chief Complaint: Lower Abdominal Pain Stated Complaint: ABDOMINAL PAIN,NAUSEA Time Seen by Provider: 08/14/17 13:24 Mode of Arrival: Ambulatory Information source: Patient TRAVEL OUTSIDE OF THE [place] IN LAST 30 DAYS: No - HPI Patient complains to provider of: L ovarian pain Onset: Other - pt . with c/o L ovay pain for the past several days. Also states she may be - Related Data Allergies/Adverse Reactions: prednisone [Prednisone] Allergy (Unknown, Verified 08/14/17 13:05) amoxicillin [Amoxicillin] Allergy (Verified 08/14/17 13:05) ondansetron HCl [From Zofran] Allergy (Verified 08/14/17 13:05) promethazine [From Phenergan] Allergy (Verified 08/14/17 13:05) Past Medical History - Past Medical History Cardiac Medical History: Reports: Hx Hypercholesterolemia Pulmonary Medical History: Reports: Hx Bronchitis Endocrine Medical History: Reports: Hx Diabetes Mellitus Type 2 Renal/ Medical History: Reports: Hx Ectopic . Denies: Hx Peritoneal Dialysis GI Medical History: Reports: Hx Gastroesophageal Reflux Disease Musculoskeltal Medical History: Reports Hx Musculoskeletal Deformity - sciatica , Reports Hx Musculoskeletal Trauma - feet and fingers Psychiatric Medical History: Reports: Hx Anxiety, Hx Attention Deficit Hyperactivity Disorder, Hx Bipolar Disorder, Hx Depression Traumatic Medical History: Reports: Hx Fractures - fingers and feet Past Surgical History: Reports: Hx Adenoidectomy, Hx Oral Surgery, Hx Orthopedic Surgery - bilateral ankle, Hx Tonsillectomy - Immunizations Immunizations up to date: Yes Hx Diphtheria, Pertussis, Tetanus Vaccination: Yes Physical Exam - Vital signs Vitals: Temp Pulse Resp BP Pulse Ox 98.6 F 81 20 122/75 100 08/14/17 13:09 08/14/17 13:09 08/14/17 13:09 08/14/17 13:09 08/14/17 13:09 Course - Vital Signs Vital signs: Temp Pulse Resp BP Pulse Ox 98.6 F 81 20 122/75 100 08/14/17 13:09 08/14/17 13:09 08/14/17 13:09 08/14/17 13:09 08/14/17 13:09
[2017-08-14 14:18] LABS: ABSOLUTE EOSINOPHILS # (AUTO) 0.1 10^3/uL (0.0-0.6); ABSOLUTE LYMPHOCYTES (AUTO) 1.7 10^3/uL (0.5-4.7); ABSOLUTE MONOCYTES (AUTO) 0.4 10^3/uL (0.1-1.4); ABSOLUTE NEUT (AUTO) 3.8 10^3/uL (1.7-8.2); BASOPHILS % (AUTO) 0.2 % (0-2); HEMATOCRIT 37.1 % (36.0-47.0); HEMOGLOBIN 13.4 g/dL (12.0-15.5); LYMPHOCYTES % (AUTO) 28.2 % (13-45); MEAN CORPUSCULAR HEMOGLOBIN 30.7 pg (27.0-33.4); MEAN CORPUSCULAR HGB CONC 36.1 g/dL (32.0-36.0); MEAN CORPUSCULAR VOLUME 85 fl (80-97); MONOCYTES % (AUTO) 6.9 % (3-13); PLATELET COUNT 182 10^3/uL (150-450); RED BLOOD COUNT 4.36 10^6/uL (3.72-5.28); RED CELL DISTRIBUTION WIDTH 12.6 % (11.5-14.0); SEGMENTED NEUTROPHILS % (AUTO) 63.7 % (42-78); TOTAL CELLS COUNTED % (AUTO) 100 %
[2017-08-14 14:24] LABS: APPEARANCE,URINE SLIGHTLY-CLOUDY; BILIRUBIN,URINE NEGATIVE (NEGATIVE); COLOR,URINE YELLOW; GLUCOSE, URINE NEGATIVE (NEGATIVE); KETONES,URINE NEGATIVE (NEGATIVE); LEUKOCYTE ESTERASE,URINE NEGATIVE (NEGATIVE); NITRITE,URINE NEGATIVE (NEGATIVE); PROTEIN,URINE NEGATIVE (NEGATIVE); URINE SPECIFIC GRAVITY 1.021; UROBILINOGEN,URINE NEGATIVE mg/dL (<2.0)
[2017-08-14 14:32] LABS: ALANINE AMINOTRANSFERASE 33 U/L (9-52); ALBUMIN 4.6 g/dL (3.5-5.0); ALKALINE PHOSPHATASE 74 U/L (38-126); ANION GAP 10 (5-19); ASPARTATE AMINO TRANSFERASE 21 U/L (14-36); BILIRUBIN,DIRECT 0.4 mg/dL (0.0-0.4); BILIRUBIN,TOTAL 0.4 mg/dL (0.2-1.3); BLOOD UREA NITROGEN 10 mg/dL (7-20); CALCIUM 9.9 mg/dL (8.4-10.2); CARBON DIOXIDE 26 mmol/L (22-30); CHLORIDE 108 mmol/L (98-107); GLUCOSE 108 mg/dL (75-110); POTASSIUM 3.8 mmol/L (3.6-5.0); SODIUM 143.5 mmol/L (137-145); TOTAL PROTEIN 7.2 g/dL (6.3-8.2)
--- NOTE | 2017-08-14 15:00 | RADIOLOGY REPORT (SQ) ---
EXAM DESCRIPTION: U/S NON OB PEL W/DOPPLER COMPLETED DATE/TIME: 08/14/2017 2:41 pm REASON FOR STUDY: L ovarian pain COMPARISON: Pelvic ultrasound 11/04/2016 CT abdomen pelvis 02/22/2017 TECHNIQUE: Dynamic and static grayscale images acquired of the pelvis via transabdominal approach an d recorded on PACS. Additional selected color Doppler and spectral images recorded. LIMITATIONS: Right adnexal bowel gas FINDINGS: UTERUS: Contour normal. No mass. Uterus measures 9.4 x 6.6 x 4.6 cm in size ENDOMETRIAL STRIPE: No focal or generalized thickening. No masses. 9 mm in thickness CERVIX: No nabothian cysts. Closed, 2.6 cm in length. RIGHT OVARY: Not visualized due to adnexal bowel gas RIGHT OVARY DOPPLER: Not performed LEFT OVARY: No abnormal masses. Left ovary 2.2 x 2 x 1.5 cm in size. LEFT OVARY DOPPLER: Normal arterial vascular flow without evidence for torsion. FREE FLUID: None noted. OTHER: No other significant finding. IMPRESSION: NONVISUALIZATION OF THE RIGHT OVARY. OTHERWISE, UNREMARKABLE PELVIC ULTRASOUND BY TRANSABDOMINAL TECHNIQUE. TECHNICAL DOCUMENTATION: JOB ID: [id number] [employer]- All Rights Reserved
--- NOTE | 2017-08-14 15:27 | ER Document Report ---
ED GI/ - General Mode of Arrival: Ambulatory Information source: Patient TRAVEL OUTSIDE OF THE [place] IN LAST 30 DAYS: No <HUANG CHOI - Last Filed: 08/14/17 15:47> <AMADA DUBON - Last Filed: 08/14/17 23:36> - General Chief Complaint: Lower Abdominal Pain Stated Complaint: ABDOMINAL PAIN,NAUSEA Time Seen by Provider: 08/14/17 13:24 Notes: Patient is a 21-year-old female who presents to the emergency department today with complaints of left lower quadrant abdominal pain for the last 6 days. Patient states her last menstrual period was on 07/08/2017. Patient states she has been having this pain for the last couple of days stating it "comes and goes ". Patient describes this pain as a sharp, stabbing, pulling pain. Patient denies constipation, vaginal discharge, or vaginal bleeding. (HUANG CHOI) - Related Data Allergies/Adverse Reactions: prednisone [Prednisone] Allergy (Unknown, Verified 08/14/17 13:05) amoxicillin [Amoxicillin] Allergy (Verified 08/14/17 13:05) ondansetron HCl [From Zofran] Allergy (Verified 08/14/17 13:05) promethazine [From Phenergan] Allergy (Verified 08/14/17 13:05) Past Medical History - General Information source: Patient - Social History Smoking Status: Never Smoker Cigarette use (# per day): No Frequency of alcohol use: None Drug Abuse: None Lives with: Family Family History: Reviewed & Not Pertinent, Arthritis, CAD, CVA, DM, Hyperlipidemia, Hypertension, Malignancy, Thyroid Disfunction Patient has suicidal ideation: No Patient has homicidal ideation: No - Past Medical History Cardiac Medical History: Reports: Hx Hypercholesterolemia Pulmonary Medical History: Reports: Hx Bronchitis Endocrine Medical History: Reports: Hx Diabetes Mellitus Type 2 Renal/ Medical History: Reports: Hx Ectopic GI Medical History: Reports: Hx Gastroesophageal Reflux Disease Musculoskeltal Medical History: Reports Hx Musculoskeletal Deformity - sciatica , Reports Hx Musculoskeletal Trauma - feet and fingers Psychiatric Medical History: Reports: Hx Anxiety, Hx Attention Deficit Hyperactivity Disorder, Hx Bipolar Disorder, Hx Depression Traumatic Medical History: Reports: Hx Fractures - fingers and feet Past Surgical History: Reports: Hx Adenoidectomy, Hx Oral Surgery, Hx Orthopedic Surgery - bilateral ankle, Hx Tonsillectomy - Immunizations Immunizations up to date: Yes Hx Diphtheria, Pertussis, Tetanus Vaccination: Yes <HUANG CHOI - Last Filed: 08/14/17 15:47> Review of Systems - Review of Systems Constitutional: No symptoms reported EENT: No symptoms reported Cardiovascular: No symptoms reported Respiratory: No symptoms reported Gastrointestinal: See HPI, Abdominal pain. denies: Constipation Genitourinary: No symptoms reported Female Genitourinary: denies: Vaginal discharge, Vaginal bleeding Musculoskeletal: No symptoms reported Skin: No symptoms reported Hematologic/Lymphatic: No symptoms reported Neurological/Psychological: No symptoms reported -: Yes All other systems reviewed and negative <HUANG CHOI - Last Filed: 08/14/17 15:47> Physical Exam <HUANG CHOI - Last Filed: 08/14/17 15:47> <AMADA DUBON - Last Filed: 08/14/17 23:36> - Vital signs Vitals: Temp Pulse Resp BP Pulse Ox 98.6 F 81 20 122/75 100 08/14/17 13:09 08/14/17 13:09 08/14/17 13:09 08/14/17 13:09 08/14/17 13:09 - Notes Notes: Physical Exam: General: Alert, appears well. HEENT: Normocephalic. Atraumatic. PERRLA. Extraocular movements intact. Oropharynx clear. Neck: Supple. Respiratory: No respiratory distress. Abdominal: Normal Inspection. No abdominal tenderness with palpation. No distension. Extremities: Moves all four extremities. Neurological: Normal cognition. AAOx4. Normal speech. Psychological: Normal affect. Normal Mood. Skin: Warm. Dry. Normal color. (HUANG CHOI) Course - Laboratory Result Diagrams: 08/14/17 13:59 08/14/17 13:59 <HUANG CHOI - Last Filed: 08/14/17 15:47> - Laboratory Result Diagrams: 08/14/17 13:59 08/14/17 13:59 <AMADA DUBON - Last Filed: 08/14/17 23:36> - Re-evaluation Re-evalutation: 08/14/17 15:27 Patient well-appearing in no acute distress. Lab workup shows no signs of abnormalities on pelvic ultrasound. No evidence of torsion or any other acute abnormalities. Patient's pain is intermittent and sharp in nature. I discussed with her use of anti-inflammatories as needed for pain to see if this helps. Also states she could try a trial dose of simethicone that is over- the-counter and see if this is gas cramp related. She was provided community clinic referral she has no primary care follow-up. Return precautions provided. (AMADA DUBON) - Vital Signs Vital signs: Temp Pulse Resp BP Pulse Ox 99.1 F 64 16 121/60 99 08/14/17 15:45 08/14/17 15:45 08/14/17 15:45 08/14/17 15:45 08/14/17 15:45 - Laboratory Laboratory results interpreted by me: 08/14/17 08/14/17 08/14/17 13:59 13:59 13:59 MCHC 36.1 H Chloride 108 H Urine Ascorbic Acid 40 H Discharge <HUANG CHOI - Last Filed: 08/14/17 15:47> <AMADA DUBON - Last Filed: 08/14/17 23:36> - Discharge Clinical Impression: Left sided abdominal pain Condition: Good Disposition: HOME, SELF-CARE Instructions: Abdominal Pain ([facility]) Additional Instructions: Please follow-up with community care for reevaluation. Please return to emergency department any worsening of pain associate with any fever uncontrollable nausea vomiting or diarrhea. Scribe Attestation: 08/14/17 23:36 I personally performed the services described documentation, reviewed and edited the documentation which was dictated to describe my presence, and it accurately records my words and actions. (AMADA DUBON) Scribe Documentation - Scribe Written by Benson:: Benson Bob, 08/14/2017 1547 acting as scribe for :: Herb <HUANG CHOI - Last Filed: 08/14/17 15:47>
[2017-08-14 15:47] VITALS: BP 121/60
== END 2017-08-14 15:38 | disposition home or self-care (01) ==
LOC: ER 13:04
DX: R10.32 Left lower quadrant pain (principal); E11.9 Type 2 diabetes mellitus without complications; Z87.19 Personal history of other diseases of the digestive system; Z88.8 Allergy status to other drugs, medicaments and biological substances; Z88.0 Allergy status to penicillin; Z87.59 Personal history of other complications of pregnancy, childbirth and the puerperium
CPT/HCPCS: 36415; 76856; 80053; 81001; 84703; 85025; 93976; 99284

== ENCOUNTER 2017-09-23 17:27 | Emergency (ER) | payer OTHER ==
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
[2017-09-23 21:40] VITALS: BP 113/69
[2017-09-23] MEDS ORDERED: KETOROLAC TROMETHAMINE 60 MG/2 ML SDV IM ONE (21:56)
== END 2017-09-23 22:10 | disposition home or self-care (01) ==
LOC: ER 17:27
DX: M54.6 Pain in thoracic spine (principal); R51 Headache; M54.9 Dorsalgia, unspecified; W10.9XXA Fall (on) (from) unspecified stairs and steps, initial encounter
CPT/HCPCS: 99283; 96372; J1885

== ENCOUNTER → 2017-11-04 | Outpatient (CLI) | payer OTHER | LOC: CCC 14:06 | DX: Z83.49 Family history of other endocrine, nutritional and metabolic diseases (principal) | CPT/HCPCS: 36415; 84443 ==

== ENCOUNTER 2017-12-15 18:52 | Emergency (ER) | payer OTHER ==
--- NOTE | 2017-12-15 19:22 | ER Document Report ---
ED Medical Screen (RME) - General Chief Complaint: Abdominal Pain Stated Complaint: ABDOMINAL PAIN Time Seen by Provider: 12/15/17 19:03 Mode of Arrival: Ambulatory Information source: Patient Notes: 22-year-old female who has had chronic pelvic pain of 2 and half year duration presents with pain that occurred worsening after intercourse. Patient notes she has been seen a few times for this denies any fevers or chills denies any vaginal discharge at this time she has been having some irregular menses I have greeted and performed a rapid initial assessment of this patient. A comprehensive ED assessment and evaluation of the patient, analysis of test results and completion of the medical decision making process will be conducted by additional ED providers. PHYSICAL EXAMINATION: GENERAL: Well-appearing, well-nourished and in no acute distress. HEAD: Atraumatic, normocephalic. EYES: Pupils equal round extraocular movements intact, conjunctiva are normal. ENT: Nares patent NECK: Normal range of motion LUNGS: No respiratory distress Musculoskeletal: Normal range of motion NEUROLOGICAL: Normal speech, normal gait. PSYCH: Normal mood, normal affect. SKIN: Warm, Dry, normal turgor, no rashes or lesions noted. TRAVEL OUTSIDE OF THE [place] IN LAST 30 DAYS: No - Related Data Allergies/Adverse Reactions: prednisone [Prednisone] Allergy (Unknown, Verified 12/15/17 19:13) amoxicillin [Amoxicillin] Allergy (Verified 12/15/17 19:13) ondansetron HCl [From Zofran] Allergy (Verified 12/15/17 19:13) promethazine [From Phenergan] Allergy (Verified 12/15/17 19:13) Past Medical History - Social History Chew tobacco use (# tins/day): No Frequency of alcohol use: Occasional Drug Abuse: None - Past Medical History Cardiac Medical History: Reports: Hx Hypercholesterolemia Pulmonary Medical History: Reports: Hx Bronchitis Endocrine Medical History: Reports: Hx Diabetes Mellitus Type 2 Renal/ Medical History: Reports: Hx Ectopic . Denies: Hx Peritoneal Dialysis GI Medical History: Reports: Hx Gastroesophageal Reflux Disease Musculoskeltal Medical History: Reports Hx Musculoskeletal Deformity - sciatica , Reports Hx Musculoskeletal Trauma - feet and fingers Psychiatric Medical History: Reports: Hx Anxiety, Hx Attention Deficit Hyperactivity Disorder, Hx Bipolar Disorder, Hx Depression Traumatic Medical History: Reports: Hx Fractures - fingers and feet Past Surgical History: Reports: Hx Adenoidectomy, Hx Oral Surgery, Hx Orthopedic Surgery - bilateral ankle, Hx Tonsillectomy - Immunizations Immunizations up to date: Yes Hx Diphtheria, Pertussis, Tetanus Vaccination: Yes Physical Exam - Vital signs Vitals: Temp Pulse Resp BP Pulse Ox 98.7 F 71 17 137/78 H 100 12/15/17 19:19 12/15/17 19:19 12/15/17 19:19 12/15/17 19:19 12/15/17 19:19 Course - Vital Signs Vital signs: Temp Pulse Resp BP Pulse Ox 98.7 F 71 17 137/78 H 100 12/15/17 19:19 12/15/17 19:19 12/15/17 19:19 12/15/17 19:19 12/15/17 19:19 Doctor's Discharge - Discharge Referrals: [facility] [Primary Care Provider] - Follow up as needed
[2017-12-15 19:43] LABS: ABSOLUTE EOSINOPHILS # (AUTO) 0.1 10^3/uL (0.0-0.6); ABSOLUTE LYMPHOCYTES (AUTO) 2.7 10^3/uL (0.5-4.7); ABSOLUTE MONOCYTES (AUTO) 0.6 10^3/uL (0.1-1.4); ABSOLUTE NEUT (AUTO) 5.7 10^3/uL (1.7-8.2); BASOPHILS % (AUTO) 0.3 % (0-2); EOSINOPHILS % (AUTO) 0.9 % (0-6); HEMATOCRIT 35.9 % (36.0-47.0); HEMOGLOBIN 12.5 g/dL (12.0-15.5); LYMPHOCYTES % (AUTO) 29.2 % (13-45); MEAN CORPUSCULAR HEMOGLOBIN 29.3 pg (27.0-33.4); MEAN CORPUSCULAR HGB CONC 34.9 g/dL (32.0-36.0); MEAN CORPUSCULAR VOLUME 84 fl (80-97); PLATELET COUNT 163 10^3/uL (150-450); RED BLOOD COUNT 4.26 10^6/uL (3.72-5.28); RED CELL DISTRIBUTION WIDTH 12.7 % (11.5-14.0); SEGMENTED NEUTROPHILS % (AUTO) 62.6 % (42-78); TOTAL CELLS COUNTED % (AUTO) 100 %; WHITE BLOOD COUNT 9.2 10^3/uL (4.0-10.5)
--- NOTE | 2017-12-15 19:53 | RADIOLOGY REPORT (SQ) ---
EXAM DESCRIPTION: U/S NON OB PEL TV W/DOPPLER COMPLETED DATE/TIME: 12/15/2017 7:44 pm REASON FOR STUDY: pelvic pain COMPARISON: 08/14/2017 TECHNIQUE: Dynamic and static grayscale images acquired of the pelvis via transvaginal approach and recorded on PACS. Additional selected color Doppler and spectral images recorded. LIMITATIONS: Body habitus. FINDINGS: UTERUS: Contour normal. No mass. ENDOMETRIAL STRIPE: No focal or generalized thickening. No masses. CERVIX: No nabothian cysts. RIGHT OVARY AND DOPPLER: Ovary not visualized. LEFT OVARY AND DOPPLER: Ovary not visualized. FREE FLUID: None noted. OTHER: No other significant finding. MEASUREMENTS: UTERUS: 9.6 x 5.1 x 7.2 cm ENDOMETRIAL STRIPE: 1 mm RIGHT OVARY: Not visualized. LEFT OVARY: Not visualized. IMPRESSION: NORMAL TRANSVAGINAL PELVIC ULTRASOUND. TECHNICAL DOCUMENTATION: JOB ID: [id number] [email or web address]- All Rights Reserved Rev-11/29 Reading location - IP/workstation name: [email or web address]
--- NOTE | 2017-12-15 19:56 | ER Document Report ---
ED General - General Chief Complaint: Abdominal Pain Stated Complaint: ABDOMINAL PAIN Time Seen by Provider: 12/15/17 19:03 Mode of Arrival: Ambulatory TRAVEL OUTSIDE OF THE [place] IN LAST 30 DAYS: No - HPI Notes: Patient is a 22-year-old female who presents to the ED complaining of lower pelvic pain bilaterally overall 2-1/2 years but most recently over the last day. Patient states that she did have some discomfort when she woke up this morning and then had intercourse with her which increased her pain thereafter. Patient states that the pain does not radiate. She does have intermittent nausea without any vomiting. Patient states that she is waiting for approval to get seen at [facility] for this chronic issue. She has had previous workups that were unremarkable. She is still eating and drinking without any difficulties. She is urinating normally and having normal bowel movements. She has not had any vaginal discharge, odor, or bleeding. Last full menstrual period was in October. She has had some spotting since then. Patient states that she did have STD testing 2 weeks ago that was negative. Denies any headache, fever, neck pain, URI, sore throat, chest pain, palpitations, syncope, cough, shortness of breath, wheeze, dyspnea, vomiting/ diarrhea, urinary retention, dysuria, hematuria, back pain, loss of control of bowel or bladder, numbness/tingling, saddle anesthesia, muscle paralysis/ weakness, or rash. - Related Data Allergies/Adverse Reactions: prednisone [Prednisone] Allergy (Unknown, Verified 12/15/17 19:13) amoxicillin [Amoxicillin] Allergy (Verified 12/15/17 19:13) ondansetron HCl [From Zofran] Allergy (Verified 12/15/17 19:13) promethazine [From Phenergan] Allergy (Verified 12/15/17 19:13) Past Medical History - General Information source: Patient - Social History Smoking Status: Never Smoker Chew tobacco use (# tins/day): No Frequency of alcohol use: Occasional Drug Abuse: None Family History: Reviewed & Not Pertinent, Arthritis, CAD, CVA, DM, Hyperlipidemia, Hypertension, Malignancy, Thyroid Disfunction Patient has suicidal ideation: No Patient has homicidal ideation: No - Past Medical History Cardiac Medical History: Reports: Hx Hypercholesterolemia Pulmonary Medical History: Reports: Hx Bronchitis Endocrine Medical History: Reports: Hx Diabetes Mellitus Type 2 Renal/ Medical History: Reports: Hx Ectopic . Denies: Hx Peritoneal Dialysis GI Medical History: Reports: Hx Gastroesophageal Reflux Disease Musculoskeltal Medical History: Reports Hx Musculoskeletal Deformity - sciatica , Reports Hx Musculoskeletal Trauma - feet and fingers Psychiatric Medical History: Reports: Hx Anxiety, Hx Attention Deficit Hyperactivity Disorder, Hx Bipolar Disorder, Hx Depression Traumatic Medical History: Reports: Hx Fractures - fingers and feet Past Surgical History: Reports: Hx Adenoidectomy, Hx Oral Surgery, Hx Orthopedic Surgery - bilateral ankle, Hx Tonsillectomy - Immunizations Immunizations up to date: Yes Hx Diphtheria, Pertussis, Tetanus Vaccination: Yes Review of Systems - Review of Systems -: Yes All other systems reviewed and negative Physical Exam - Vital signs Vitals: Temp Pulse Resp BP Pulse Ox 98.7 F 71 17 137/78 H 100 12/15/17 19:19 12/15/17 19:19 12/15/17 19:19 12/15/17 19:19 12/15/17 19:19 - Notes Notes: PHYSICAL EXAMINATION: GENERAL: Well-appearing, well-nourished and in no acute distress. LUNGS: Breath sounds clear to auscultation bilaterally and equal. No wheezes rales or rhonchi. HEART: Regular rate and rhythm without murmurs, rubs, gallops. ABDOMEN: Soft, nondistended abdomen. No guarding, no rebound. No masses appreciated. Normal bowel sounds present. No CVA tenderness bilaterally. + mild tenderness to the lower pelvic area b/l. No tenderness at m[place]. Freed neg. Musculoskeletal: FROM to passive/active. Strength 5+/5. Extremities: No cyanosis, clubbing, or edema b/l. Peripheral pulses 2+. Capillary refill less than 3 seconds. NEUROLOGICAL: Normal speech, normal gait. PSYCH: Normal mood, normal affect. SKIN: Warm, Dry, normal turgor, no rashes or lesions noted. Course - Re-evaluation Re-evalutation: 12/15/17 21:21 Patient is an afebrile, well-hydrated, 22-year-old female who presents to the ED with acute on chronic lower pelvic pain bilaterally unspecified. Vitals are acceptable. PE is otherwise unremarkable. Patient has no significant tachycardia, tachypnea, or hypoxia. She is tolerating p.o. without difficulties. She is nontoxic-appearing. CBC, CMP, urinalysis, hCG, transvaginal ultrasound were all unremarkable for any acute pathology. Wet mount was also unremarkable for any acute pathology. Chlamydia and gonorrhea tests are pending and we will call her if positive, but I do have a low suspicion at this time. No other labs or imaging warranted at this time based on H&P. Low suspicion for acute appendicitis, bowel obstruction, acute cholecystitis, acute cholangitis, perforated diverticulitis, incarcerated hernia , pancreatitis, perforated ulcer, peritonitis, sepsis, pelvic inflammatory disease, ectopic , tubo-ovarian abscess, ovarian torsion, or other systemic emergent condition at this time. Patient is aware that her condition can change from initial presentation and she needs to monitor symptoms closely and seek medical attention if any acute changes. Conservative measures otherwise for symptoms. Recheck with OBGYN in 3-5 days. Recheck with your PCM in 3-5 days. Return to the ED with any worsening/concerning symptoms otherwise as reviewed in discharge. Patient is in agreement. - Vital Signs Vital signs: Temp Pulse Resp BP Pulse Ox 98.7 F 71 17 137/78 H 100 12/15/17 19:19 12/15/17 19:19 12/15/17 19:19 12/15/17 19:19 12/15/17 19:19 - Laboratory Result Diagrams: 12/15/17 19:28 12/15/17 19:28 Laboratory results interpreted by me: 12/15/17 12/15/17 19:28 20:00 Hct 35.9 L Urine Urobilinogen 4.0 H Discharge - Discharge Clinical Impression: Pelvic pain Condition: Stable Disposition: HOME, SELF-CARE Instructions: Pelvic Pain ([facility]), Abdominal Pain ([facility]) Additional Instructions: Maintain fluid intake Proper hygenic technique Keep the skin clean Safe sexual practices with condoms everytime Tylenol/ibuprofen as needed Check in with the health department this week for further testing if warranted Your chlamydia/Ghon test are pending and you will be notified if positive results; you may call in 1 day for the results as well Return immediately if symptoms worsen F/u with your PCM/OBGYN in 3-5 days for a recheck Return to the ED with any development of HONG/fever, trouble with vision, eye redness, worsening pain, urethral discharge, urinary retention, blood in the urine, flank pain, abdominal pain, n/v, Chest Pain, shortness of breath, joint pains, trouble breathing, or any other worsening/concerning symptoms as needed otherwise. Forms: Elevated Blood Pressure Referrals: [facility] [Provider Group] - Follow up in 3-5 days
[2017-12-15 20:12] LABS: ALANINE AMINOTRANSFERASE 27 U/L (9-52); ALBUMIN 4.4 g/dL (3.5-5.0); ALKALINE PHOSPHATASE 65 U/L (38-126); ANION GAP 11 (5-19); ASPARTATE AMINO TRANSFERASE 24 U/L (14-36); BILIRUBIN,DIRECT 0.4 mg/dL (0.0-0.4); BILIRUBIN,TOTAL 0.6 mg/dL (0.2-1.3); BLOOD UREA NITROGEN 12 mg/dL (7-20); CALCIUM 9.7 mg/dL (8.4-10.2); CARBON DIOXIDE 25 mmol/L (22-30); CHLORIDE 107 mmol/L (98-107); GLUCOSE 101 mg/dL (75-110); POTASSIUM 3.8 mmol/L (3.6-5.0); SODIUM 143.1 mmol/L (137-145); TOTAL PROTEIN 7.2 g/dL (6.3-8.2)
[2017-12-15 20:15] LABS: RBCS (WET MOUNT) 1+ RBCS SEEN; T.VAGINALIS (WET MOUNT) NO TRICHOMONAS SEEN; WBCS (WET MOUNT) RARE WBCS SEEN; YEAST (WET MOUNT) NO YEAST SEEN
[2017-12-15 20:20] LABS: APPEARANCE,URINE CLOUDY; BILIRUBIN,URINE NEGATIVE (NEGATIVE); GLUCOSE, URINE NEGATIVE (NEGATIVE); KETONES,URINE NEGATIVE (NEGATIVE); LEUKOCYTE ESTERASE,URINE NEGATIVE (NEGATIVE); NITRITE,URINE NEGATIVE (NEGATIVE); PROTEIN,URINE NEGATIVE (NEGATIVE); URINE SPECIFIC GRAVITY 1.027
[2017-12-15 20:22] LABS: COLOR,URINE DARK YELLOW
[2017-12-15 22:35] VITALS: BP 120/60
== END 2017-12-15 22:20 | disposition home or self-care (01) ==
LOC: ER 18:52
DX: R10.2 Pelvic and perineal pain (principal); G89.29 Other chronic pain; E78.00 Pure hypercholesterolemia, unspecified; E11.9 Type 2 diabetes mellitus without complications; Z88.0 Allergy status to penicillin
CPT/HCPCS: 36415; 76830; 80053; 81001; 81025; 85025; 87086; 87210; 93976; 99284

== ENCOUNTER 2018-01-26 12:09 | Emergency (ER) | payer OTHER ==
--- NOTE | 2018-01-26 12:28 | ER Document Report ---
ED Medical Screen (RME) - General Chief Complaint: Lower Abdominal Pain Stated Complaint: ABDOMINAL PAIN Time Seen by Provider: 01/26/18 12:20 Mode of Arrival: Ambulatory Information source: Patient Notes: 22-year-old female with no reported past medical history presents with complaint of left lower quadrant pain that started 12 days prior to arrival. She describes the pain as intermittent, stabbing and not relieved or aggravated with anything. Patient's last menstrual period was December 18, 2017. She states that she has had several positive home tests with very faint lines. She denies any vaginal bleeding. This would be her first . She denies any vaginal discharge, dysuria I have greeted and performed a rapid initial assessment of this patient. A comprehensive ED assessment and evaluation of the patient including analysis of labs and imaging ( if obtained) and completion of medical decision making will be conducted by an additional ED provider. PHYSICAL EXAMINATION: GENERAL: Well-appearing, well-nourished and in no acute distress. HEAD: Atraumatic, normocephalic. EYES: Pupils equal round extraocular movements intact, conjunctiva are normal. ENT: Nares patent NECK: Normal range of motion LUNGS: No respiratory distress Musculoskeletal: Normal range of motion NEUROLOGICAL: Normal speech, normal gait. PSYCH: Normal mood, normal affect. SKIN: Warm, Dry, normal turgor, no rashes or lesions noted. TRAVEL OUTSIDE OF THE [place] IN LAST 30 DAYS: No - Related Data Allergies/Adverse Reactions: prednisone [Prednisone] Allergy (Unknown, Verified 01/26/18 12:19) amoxicillin [Amoxicillin] Allergy (Verified 01/26/18 12:19) ondansetron HCl [From Zofran] Allergy (Verified 01/26/18 12:19) promethazine [From Phenergan] Allergy (Verified 01/26/18 12:19) Past Medical History - Social History Chew tobacco use (# tins/day): No Frequency of alcohol use: None Drug Abuse: None - Past Medical History Cardiac Medical History: Reports: Hx Hypercholesterolemia Pulmonary Medical History: Reports: Hx Bronchitis Endocrine Medical History: Reports: Hx Diabetes Mellitus Type 2 Renal/ Medical History: Reports: Hx Ectopic . Denies: Hx Peritoneal Dialysis GI Medical History: Reports: Hx Gastroesophageal Reflux Disease Musculoskeltal Medical History: Reports Hx Musculoskeletal Deformity - sciatica , Reports Hx Musculoskeletal Trauma - feet and fingers Psychiatric Medical History: Reports: Hx Anxiety, Hx Attention Deficit Hyperactivity Disorder, Hx Bipolar Disorder, Hx Depression Traumatic Medical History: Reports: Hx Fractures - fingers and feet Past Surgical History: Reports: Hx Adenoidectomy, Hx Oral Surgery, Hx Orthopedic Surgery - bilateral ankle, Hx Tonsillectomy - Immunizations Immunizations up to date: Yes Hx Diphtheria, Pertussis, Tetanus Vaccination: Yes Physical Exam - Vital signs Vitals: Temp Pulse Resp BP Pulse Ox 98.6 F 78 18 123/80 97 01/26/18 12:16 01/26/18 12:16 01/26/18 12:16 01/26/18 12:16 01/26/18 12:16 Course - Vital Signs Vital signs: Temp Pulse Resp BP Pulse Ox 98.6 F 78 18 123/80 97 01/26/18 12:16 01/26/18 12:16 01/26/18 12:16 01/26/18 12:16 01/26/18 12:16
[2018-01-26 13:39] LABS: APPEARANCE,URINE SLIGHTLY-CLOUDY; BILIRUBIN,URINE NEGATIVE (NEGATIVE); COLOR,URINE YELLOW; GLUCOSE, URINE NEGATIVE (NEGATIVE); KETONES,URINE NEGATIVE (NEGATIVE); LEUKOCYTE ESTERASE,URINE NEGATIVE (NEGATIVE); NITRITE,URINE NEGATIVE (NEGATIVE); PROTEIN,URINE NEGATIVE (NEGATIVE); URINE SPECIFIC GRAVITY 1.019; UROBILINOGEN,URINE NEGATIVE mg/dL (<2.0)
--- NOTE | 2018-01-26 14:20 | ER Document Report ---
ED GI/ - General Chief Complaint: Lower Abdominal Pain Stated Complaint: ABDOMINAL PAIN Time Seen by Provider: 01/26/18 12:20 Mode of Arrival: Ambulatory Information source: Patient Notes: Patient presents with a 12 day history of left lower quadrant abdominal pain. Patient states pain has been intermittent and is presently resolved. Patient states she had normal bowel movement today and denies any constipation symptoms. Patient denies any urinary symptoms as well. Patient does complain of some vaginal discharge. Patient is concerned that she may be . Patient states that she has taken over 10 tests that were positive at home. TRAVEL OUTSIDE OF THE [place] IN LAST 30 DAYS: No - HPI Patient complains to provider of: Pelvic pain, , Vaginal discharge Onset: Other - 12 days Timing/Duration: Waxing and waning, Gone Quality of pain: No pain Severity at maximum: Moderate Severity in ED: None Pain Level: Denies Location: LLQ Vaginal bleeding (Compared to normal period): None Menstrual period history: Associated symptoms: Vaginal discharge. denies: Constipation, Diarrhea, Dysuria , Fever, Nausea, Urinary hesitancy, Urinary frequency, Urinary retention, Urinary urgency, Vomiting Exacerbated by: Denies Relieved by: Denies Similar symptoms previously: No Recently seen / treated by doctor: No - Related Data Allergies/Adverse Reactions: prednisone [Prednisone] Allergy (Unknown, Verified 01/26/18 12:19) amoxicillin [Amoxicillin] Allergy (Verified 01/26/18 12:19) ondansetron HCl [From Zofran] Allergy (Verified 01/26/18 12:19) promethazine [From Phenergan] Allergy (Verified 01/26/18 12:19) Past Medical History - General Information source: Patient - Social History Smoking Status: Never Smoker Chew tobacco use (# tins/day): No Frequency of alcohol use: None Drug Abuse: None Occupation: Daycare worker Lives with: Spouse/Significant other Family History: Reviewed & Not Pertinent, Arthritis, CAD, CVA, DM, Hyperlipidemia, Hypertension, Malignancy, Thyroid Disfunction Patient has suicidal ideation: No Patient has homicidal ideation: No - Past Medical History Cardiac Medical History: Reports: Hx Hypercholesterolemia Pulmonary Medical History: Reports: Hx Bronchitis Endocrine Medical History: Reports: Hx Diabetes Mellitus Type 2 Renal/ Medical History: Reports: Hx Ectopic . Denies: Hx Peritoneal Dialysis GI Medical History: Reports: Hx Gastroesophageal Reflux Disease Musculoskeletal Medical History: Reports Hx Musculoskeletal Deformity - sciatica , Reports Hx Musculoskeletal Trauma - feet and fingers Psychiatric Medical History: Reports: Hx Anxiety, Hx Attention Deficit Hyperactivity Disorder, Hx Bipolar Disorder, Hx Depression Traumatic Medical History: Reports: Hx Fractures - fingers and feet Past Surgical History: Reports: Hx Adenoidectomy, Hx Oral Surgery, Hx Orthopedic Surgery - bilateral ankle, Hx Tonsillectomy - Immunizations Immunizations up to date: Yes Hx Diphtheria, Pertussis, Tetanus Vaccination: Yes Review of Systems - Review of Systems Constitutional: No symptoms reported. denies: Fever, Recent illness EENT: No symptoms reported Cardiovascular: No symptoms reported. denies: Chest pain Respiratory: No symptoms reported. denies: Cough, Short of breath Gastrointestinal: Abdominal pain. denies: Nausea, Vomiting, Constipation, Poor appetite Genitourinary: No symptoms reported. denies: Dysuria, Flank pain Female Genitourinary: , Vaginal discharge. denies: Vaginal bleeding Musculoskeletal: No symptoms reported. denies: Back pain Skin: No symptoms reported Hematologic/Lymphatic: No symptoms reported Neurological/Psychological: No symptoms reported Physical Exam - Vital signs Vitals: Temp Pulse Resp BP Pulse Ox 98.6 F 78 18 123/80 97 01/26/18 12:16 01/26/18 12:16 01/26/18 12:16 01/26/18 12:16 01/26/18 12:16 - General General appearance: Appears well, Alert In distress: None - HEENT Head: Normocephalic, Atraumatic Eyes: Normal Conjunctiva: Normal Nasal: Normal Mouth/Lips: Normal Mucous membranes: Normal Neck: Normal - Respiratory Respiratory status: No respiratory distress Chest status: Nontender Breath sounds: Normal. No: Rales, Rhonchi, Stridor, Wheezing Chest palpation: Normal - Cardiovascular Rhythm: Regular Heart sounds: S1 appreciated, S2 appreciated Murmur: No - Abdominal Inspection: Obese Distension: No distension Bowel sounds: Normal Tenderness: Nontender Organomegaly: No organomegaly - Genitourinary External exam: Normal Speculum exam: Vaginal discharge Vaginal bleeding: None Bimanuel exam: Normal. No: Cervical motion tender, Adnexal tenderness - Back Back: Normal, Nontender. No: CVA tenderness - Extremities General upper extremity: Normal inspection, Normal ROM General lower extremity: Normal inspection, Normal ROM - Neurological Neuro grossly intact: Yes Cognition: Normal Jerad Coma Scale Eye Opening: Spontaneous [place] Coma Scale Verbal: Oriented [place] Coma Scale Motor: Obeys Commands Jerad Coma Scale Total: 15 - Psychological Associated symptoms: Normal affect, Normal mood - Skin Skin Temperature: Warm Skin Moisture: Dry Skin Color: Normal Course - Re-evaluation Re-evalutation: 01/26/18 15:56 Patient without abdominal pain on a today. Patient reports that pain has been intermittent. Patient reports regular bowel movements without difficulty. No adnexal tenderness on pelvic examination, no concern for TOA, or torsion. test negative. Patient states that all female members of her family have had to have medications during the as there hormone test always run very low. Patient insistent that she has had multiple positive home tests at home. Patient advised of negative test both on the urine and on the serum sample. - Vital Signs Vital signs: Temp Pulse Resp BP Pulse Ox 98.5 F 71 16 121/77 99 01/26/18 16:13 01/26/18 16:13 01/26/18 16:13 01/26/18 16:13 01/26/18 16:13 - Laboratory Laboratory results interpreted by me: Labs- Entire Visit 01/26/18 01/26/18 01/26/18 13:00 13:00 14:33 Serum HCG, Qual NEGATIVE Urine Color YELLOW Urine Appearance SLIGHTLY-CLOUDY Urine pH 6.0 Ur Specific [place] 1.019 Urine Protein NEGATIVE Urine Glucose (UA) NEGATIVE Urine Ketones NEGATIVE Urine Blood NEGATIVE Urine Nitrite NEGATIVE Urine Bilirubin NEGATIVE Urine Urobilinogen NEGATIVE Ur Leukocyte Esterase NEGATIVE Urine WBC (Auto) 5 Urine RBC (Auto) 2 Urine Bacteria (Auto) 3+ Squamous Epi Cells Auto 21 Urine Mucus (Auto) MANY Urine Ascorbic Acid NEGATIVE Urine HCG, Qual NEGATIVE Epi Cells (Wet Prep) 3+ EPITHELIALS SEEN Bacteria (Wet Prep) 4+ BACTERIA SEEN Trichomonas (Wet Prep) NO TRICHOMONAS SEEN Vaginal WBC 2+ WBCS SEEN Vaginal RBC FEW RBCS SEEN Vaginal Yeast YEAST SEEN Discharge - Discharge Clinical Impression: Vagina, candidiasis, Bacterial vaginosis Condition: Stable Disposition: HOME, SELF-CARE Instructions: Abdominal Pain ([facility]), Metronidazole ([facility]), Vaginal Yeast Infection ([facility]), Vaginosis, Bacterial ([facility]) Additional Instructions: Return immediately for any new or worsening symptoms Followup with your primary care provider, call tomorrow to make a followup appointment Follow-up with a iron worker for further evaluation, call tomorrow for an appointment Prescriptions: Fluconazole [Diflucan] 150 mg PO ONCE PRN #1 tablet PRN Reason: Metronidazole [Flagyl 500 mg Tablet] 500 mg PO BID #14 tablet Forms: Return to Work Referrals: [facility] [NO LOCAL MD] - Follow up as needed [facility] [Provider Group] - Follow up as needed
[2018-01-26 14:55] LABS: T.VAGINALIS (WET MOUNT) NO TRICHOMONAS SEEN
[2018-01-26 14:56] LABS: BACTERIA (WET MOUNT) 4+ BACTERIA SEEN; EPITHELIALS (WET MOUNT) 3+ EPITHELIALS SEEN; RBCS (WET MOUNT) FEW RBCS SEEN; WBCS (WET MOUNT) 2+ WBCS SEEN; YEAST (WET MOUNT) YEAST SEEN
[2018-01-26 16:15] VITALS: BP 121/77
[2018-01-26 16:22] LABS: CHLAM PCR NOT DETECTED (NOT DETECT); GON PCR NOT DETECTED (NOT DETECT)
== END 2018-01-26 16:20 | disposition home or self-care (01) ==
LOC: ER 12:09
DX: N76.0 Acute vaginitis (principal); B97.89 Other viral agents as the cause of diseases classified elsewhere; B37.3 Candidiasis of vulva and vagina; R10.32 Left lower quadrant pain; R10.2 Pelvic and perineal pain
CPT/HCPCS: 36415; 81001; 81025; 84703; 87210; 87491; 87591; 99284

== ENCOUNTER 2018-01-30 11:13 | Emergency (ER) | payer OTHER ==
[2018-01-30 11:19] VITALS: BP 121/75
--- NOTE | 2018-01-30 11:34 | ER Document Report ---
ED Medical Screen (RME) - General Chief Complaint: Abdominal Pain Stated Complaint: LOWER ABDOMINAL PAIN Time Seen by Provider: 01/30/18 11:24 Notes: RAPID MEDICAL EVALUATION DISCLOSURE I have seen this patient as part of a Rapid Medical Evaluation and, if applicable, placed any initially appropriate orders. The patient will be seen and fully evaluated, including a full history and physical exam, by a provider ( in Main ED or Fast Track) when a room becomes available. 22-year-old female here with complaints of left lower quadrant abdominal pain ongoing for the past 2 weeks. She has had "10 positive test" and "I am later my.". She has had a serum hCG here 4 days ago which was negative. She continues to believe that she is and is complaining of the pain. EXAM CTAB RRR Minimal left lower quadrant TTP TRAVEL OUTSIDE OF THE [place] IN LAST 30 DAYS: No - Related Data Allergies/Adverse Reactions: prednisone [Prednisone] Allergy (Unknown, Verified 01/30/18 11:14) amoxicillin [Amoxicillin] Allergy (Verified 01/30/18 11:14) ondansetron HCl [From Zofran] Allergy (Verified 01/30/18 11:14) promethazine [From Phenergan] Allergy (Verified 01/30/18 11:14) Past Medical History - Past Medical History Cardiac Medical History: Reports: Hx Hypercholesterolemia Pulmonary Medical History: Reports: Hx Bronchitis Endocrine Medical History: Reports: Hx Diabetes Mellitus Type 2 Renal/ Medical History: Reports: Hx Ectopic . Denies: Hx Peritoneal Dialysis GI Medical History: Reports: Hx Gastroesophageal Reflux Disease Musculoskeltal Medical History: Reports Hx Musculoskeletal Deformity - sciatica , Reports Hx Musculoskeletal Trauma - feet and fingers Psychiatric Medical History: Reports: Hx Anxiety, Hx Attention Deficit Hyperactivity Disorder, Hx Bipolar Disorder, Hx Depression Traumatic Medical History: Reports: Hx Fractures - fingers and feet Past Surgical History: Reports: Hx Adenoidectomy, Hx Oral Surgery, Hx Orthopedic Surgery - bilateral ankle, Hx Tonsillectomy - Immunizations Immunizations up to date: Yes Hx Diphtheria, Pertussis, Tetanus Vaccination: Yes Physical Exam - Vital signs Vitals: Temp Pulse Resp BP Pulse Ox 98.7 F 81 16 121/75 97 01/30/18 11:17 01/30/18 11:17 01/30/18 11:17 01/30/18 11:17 01/30/18 11:17 Course - Vital Signs Vital signs: Temp Pulse Resp BP Pulse Ox 98.7 F 81 16 121/75 97 01/30/18 11:17 01/30/18 11:17 01/30/18 11:17 01/30/18 11:17 01/30/18 11:17
--- NOTE | 2018-01-30 14:22 | ER Document Report ---
ED GI/ - General Chief Complaint: Abdominal Pain Stated Complaint: LOWER ABDOMINAL PAIN Time Seen by Provider: 01/30/18 11:24 Notes: 22-year-old female presents to ED for complaint of bilateral pelvic pain for about 16 days. She states she is 16 days late she states she has had 10 positive test at home but every time she comes here she has negative test. She states she believes she is no matter what our test or saline. She states she has also been told she has probably got endometriosis and ovarian cyst. She would like an ultrasound for this. She states she does had a complete pelvic done on Saturday with negative GC and chlamydia and she does not want to do that again. She is alert and oriented respirations regular and unlabored speaking in full sentences walks with a even steady gait. TRAVEL OUTSIDE OF THE [place] IN LAST 30 DAYS: No - HPI Patient complains to provider of: Missed/Late menses, Pelvic pain Onset: Other - 16 day Timing/Duration: Persistent Quality of pain: Cramping Severity at maximum: Moderate Severity in ED: Moderate Pain Level: 4 Location: LLQ, RLQ, Pelvis Vaginal bleeding (Compared to normal period): None Menstrual period history: Missed Associated symptoms: Nausea, Vomiting Exacerbated by: Movement, Walking Relieved by: Denies Similar symptoms previously: Yes Recently seen / treated by doctor: Yes - Related Data Allergies/Adverse Reactions: prednisone [Prednisone] Allergy (Unknown, Verified 01/30/18 11:14) amoxicillin [Amoxicillin] Allergy (Verified 01/30/18 11:14) ondansetron HCl [From Zofran] Allergy (Verified 01/30/18 11:14) promethazine [From Phenergan] Allergy (Verified 01/30/18 11:14) Past Medical History - General Information source: Patient - Social History Smoking Status: Never Smoker Cigarette use (# per day): No Chew tobacco use (# tins/day): No Smoking Education Provided: No Frequency of alcohol use: Rare Drug Abuse: None Lives with: Family Family History: Reviewed & Not Pertinent, Arthritis, CAD, CVA, DM, Hyperlipidemia, Hypertension, Malignancy, Thyroid Disfunction Patient has suicidal ideation: No Patient has homicidal ideation: No - Past Medical History Cardiac Medical History: Reports: Hx Hypercholesterolemia Pulmonary Medical History: Reports: Hx Bronchitis EENT Medical History: Reports: None Neurological Medical History: Reports: None Endocrine Medical History: Reports: Hx Diabetes Mellitus Type 2 Renal/ Medical History: Reports: Hx Ectopic Malignancy Medical History: Reports: None GI Medical History: Reports: Hx Gastroesophageal Reflux Disease Musculoskeletal Medical History: Reports Hx Musculoskeletal Deformity - sciatica , Reports Hx Musculoskeletal Trauma - feet and fingers Skin Medical History: Reports None Psychiatric Medical History: Reports: Hx Anxiety, Hx Attention Deficit Hyperactivity Disorder, Hx Bipolar Disorder, Hx Depression Traumatic Medical History: Reports: Hx Fractures - fingers and feet Infectious Medical History: Reports: None Past Surgical History: Reports: Hx Adenoidectomy, Hx Oral Surgery, Hx Orthopedic Surgery - bilateral ankle, Hx Tonsillectomy - Immunizations Immunizations up to date: Yes Hx Diphtheria, Pertussis, Tetanus Vaccination: Yes Review of Systems - Review of Systems Constitutional: No symptoms reported EENT: No symptoms reported Cardiovascular: No symptoms reported Respiratory: No symptoms reported Gastrointestinal: No symptoms reported Genitourinary: No symptoms reported Female Genitourinary: Other - late peroid, pelvic pain Musculoskeletal: No symptoms reported Skin: No symptoms reported Hematologic/Lymphatic: No symptoms reported Neurological/Psychological: No symptoms reported -: Yes All other systems reviewed and negative Physical Exam - Vital signs Vitals: Temp Pulse Resp BP Pulse Ox 98.7 F 81 16 121/75 97 01/30/18 11:17 01/30/18 11:17 01/30/18 11:17 01/30/18 11:17 01/30/18 11:17 Interpretation: Normal - General General appearance: Appears well, Alert - HEENT Head: Normocephalic, Atraumatic Eyes: Normal Pupils: PERRL - Respiratory Respiratory status: No respiratory distress Chest status: Nontender Breath sounds: Normal Chest palpation: Normal - Cardiovascular Rhythm: Regular Heart sounds: Normal auscultation Murmur: No - Abdominal Inspection: Normal Distension: No distension Bowel sounds: Normal Tenderness: Tender - pelvic pain bilateral Organomegaly: No organomegaly - Back Back: Normal, Nontender - Extremities General upper extremity: Normal inspection, Nontender, Normal color, Normal ROM , Normal temperature General lower extremity: Normal inspection, Nontender, Normal color, Normal ROM , Normal temperature, Normal weight bearing. No: Gunjan's sign - Neurological Neuro grossly intact: Yes Cognition: Normal Orientation: AAOx4 Ventress Coma Scale Eye Opening: Spontaneous Ventress Coma Scale Verbal: Oriented Jerad Coma Scale Motor: Obeys Commands Jerad Coma Scale Total: 15 Speech: Normal Motor strength normal: LUE, RUE, LLE, RLE Sensory: Normal - Psychological Associated symptoms: Normal affect, Normal mood - Skin Skin Temperature: Warm Skin Moisture: Dry Skin Color: Normal Course - Re-evaluation Re-evalutation: 01/30/18 20:23 Discussed lab results and ultrasound results with patient and written reports given to patient to follow-up with her primary doctor. Patient was instructed to take ibuprofen for her ovarian cyst and a follow-up with [facility]. Patient verbalized understanding of instructions. - Vital Signs Vital signs: Temp Pulse Resp BP Pulse Ox 98.7 F 81 16 121/75 97 01/30/18 11:17 01/30/18 11:17 01/30/18 11:17 01/30/18 11:17 01/30/18 11:17 - Laboratory Result Diagrams: 01/30/18 14:46 01/30/18 14:46 Laboratory results interpreted by me: 01/30/18 01/30/18 01/30/18 12:30 14:46 15:45 Chloride 108 H Urine Urobilinogen 2.0 H 2.0 H Ur Leukocyte Esterase LARGE H TRACE H - Diagnostic Test Radiology reviewed: Image reviewed, Reports reviewed Discharge - Discharge Clinical Impression: Left ovarian cyst Condition: Stable Disposition: HOME, SELF-CARE Instructions: Family Physicians / Practices Additional Instructions: PELVIC PAIN: There are many causes of pain in the pelvic area. The cause could be the tubes, ovaries, uterus, intestines, appendix, pelvic muscles and connective tissue, or the urinary tract. The cause of your pelvic pain is not clear. However, it seems safe to treat you outside the hospital. If the pain sounds like a temporary problem, we sometimes wait to see if it goes away. Other patients may need additional tests, such as pelvic ultrasound or cultures. Conditions may change. Call us or come back for reexamination if any problems occur, such as: (1) Pain that becomes more severe, steady, or becomes concentrated in one specific area. Also, pain that is more severe with movement or coughing. (2) Vomiting that persists or becomes more frequent. (3) Blood in the vomitus, urine, or bowel movements. Blood in the stool may have a tarry or black appearance. (4) Shaking chills or fever greater than 100 degrees. (5) The abdomen becomes more distended or swollen. (6) Bowel movements cease. (7) Heavy vaginal bleeding. Ovarian Cyst Your examination shows the presence of an ovarian cyst. This is a ball of fluid attached to the ovary. Ovarian cysts in women of child-bearing age are usually innocent. However, the cyst may cause pain when it grows or bursts. An innocent ovarian cyst will usually go away by itself. When the cyst becomes painful, you should rest. Pain medication may be required. Some women find a hot water bottle soothing. The pain usually resolves within one or two days. After menopause, an ovarian cyst may mean a tumor, and requires more aggressive evaluation -- usually surgery is recommended to remove or biopsy the cyst. A very large cyst requires evaluation at any age. Most cysts (even the innocent ones) require follow-up examination. Call the doctor or return at any time if the pain increases significantly, if you become faint, or if you experience vaginal bleeding. TORADOL INJECTION: You have been given an injection of ketorolac tromethamine (Toradol). This is an excellent, safe drug for pain control. It also has potent antiinflammatory action. You should have significant pain relief within about one hour. Toradol is not addicting and is non-sedating. It does not interfere with driving or work. Call or return if you develop itching, hives, shortness of breath, or rash. FOLLOW-UP CARE: If you have been referred to a physician for follow-up care, call the physician s office for an appointment as you were instructed or within the next two days. If you experience worsening or a significant change in your symptoms, notify the physician immediately or return to the Emergency Department at any time for re-evaluation. Prescriptions: Ibuprofen 800 mg PO Q8HP PRN #14 tablet PRN Reason: Forms: Return to Work
[2018-01-30 15:04] LABS: ABSOLUTE LYMPHOCYTES (AUTO) 2.2 10^3/uL (0.5-4.7); ABSOLUTE MONOCYTES (AUTO) 0.4 10^3/uL (0.1-1.4); ABSOLUTE NEUT (AUTO) 3.4 10^3/uL (1.7-8.2); BASOPHILS % (AUTO) 0.4 % (0-2); EOSINOPHILS % (AUTO) 0.8 % (0-6); HEMOGLOBIN 13.3 g/dL (12.0-15.5); LYMPHOCYTES % (AUTO) 36.6 % (13-45); MEAN CORPUSCULAR HEMOGLOBIN 29.2 pg (27.0-33.4); MEAN CORPUSCULAR VOLUME 84 fl (80-97); MONOCYTES % (AUTO) 6.4 % (3-13); PLATELET COUNT 178 10^3/uL (150-450); RED BLOOD COUNT 4.55 10^6/uL (3.72-5.28); SEGMENTED NEUTROPHILS % (AUTO) 55.8 % (42-78); TOTAL CELLS COUNTED % (AUTO) 100 %; WHITE BLOOD COUNT 6.1 10^3/uL (4.0-10.5)
[2018-01-30 15:07] LABS: AMORPHOUS SEDIMENT,URINE 1+ /HPF; APPEARANCE,URINE TURBID; BILIRUBIN,URINE NEGATIVE (NEGATIVE); COLOR,URINE YELLOW; GLUCOSE, URINE NEGATIVE (NEGATIVE); KETONES,URINE NEGATIVE (NEGATIVE); LEUKOCYTE ESTERASE,URINE LARGE (NEGATIVE); NITRITE,URINE NEGATIVE (NEGATIVE); PROTEIN,URINE NEGATIVE (NEGATIVE); URINE SPECIFIC GRAVITY 1.025
[2018-01-30 15:22] LABS: ALANINE AMINOTRANSFERASE 36 U/L (9-52); ALBUMIN 4.7 g/dL (3.5-5.0); ALKALINE PHOSPHATASE 72 U/L (38-126); ANION GAP 14 (5-19); ASPARTATE AMINO TRANSFERASE 26 U/L (14-36); BILIRUBIN,DIRECT 0.2 mg/dL (0.0-0.4); BILIRUBIN,TOTAL 0.7 mg/dL (0.2-1.3); BLOOD UREA NITROGEN 10 mg/dL (7-20); CALCIUM 9.6 mg/dL (8.4-10.2); CARBON DIOXIDE 23 mmol/L (22-30); CHLORIDE 108 mmol/L (98-107); GLUCOSE 88 mg/dL (75-110); POTASSIUM 4.1 mmol/L (3.6-5.0); SODIUM 144.7 mmol/L (137-145); TOTAL PROTEIN 7.6 g/dL (6.3-8.2)
[2018-01-30 16:18] LABS: APPEARANCE,URINE SLIGHTLY-CLOUDY; BILIRUBIN,URINE NEGATIVE (NEGATIVE); COLOR,URINE YELLOW; GLUCOSE, URINE NEGATIVE (NEGATIVE); KETONES,URINE NEGATIVE (NEGATIVE); LEUKOCYTE ESTERASE,URINE TRACE (NEGATIVE); NITRITE,URINE NEGATIVE (NEGATIVE); PROTEIN,URINE NEGATIVE (NEGATIVE); URINE SPECIFIC GRAVITY 1.019
--- NOTE | 2018-01-30 16:59 | RADIOLOGY REPORT (SQ) ---
EXAM DESCRIPTION: U/S NON-OB PELVIS TV W/O DOP COMPLETED DATE/TIME: 01/30/2018 4:34 pm REASON FOR STUDY: bilateral pelvic pain late period COMPARISON: None. TECHNIQUE: Dynamic and static grayscale images acquired of the pelvis via transvaginal approach and recorded on PACS. Additional selected color Doppler and spectral images recorded. LIMITATIONS: None. FINDINGS: UTERUS: Contour normal. No mass. ENDOMETRIAL STRIPE: No focal or generalized thickening. No masses. CERVIX: No nabothian cysts. RIGHT OVARY AND DOPPLER: Ovary not visualized. LEFT OVARY AND DOPPLER: Normal size. 3 cm simple ovarian cyst. Normal arterial vascular flow without evidence for torsion. FREE FLUID: None noted. OTHER: No other significant finding. MEASUREMENTS: UTERUS: 9.3 x 5.7 x 7.5 cm ENDOMETRIAL STRIPE: 7 mm RIGHT OVARY: Not visualized. LEFT OVARY: 4.1 x 4.0 x 4.0 cm IMPRESSION: 3 cm simple left ovarian cyst. Study is otherwise normal. TECHNICAL DOCUMENTATION: JOB ID: [id number] [employer]- All Rights Reserved Reading location - IP/workstation name: [email or web address]
[2018-01-30] MEDS ORDERED: KETOROLAC TROMETHAMINE INJ/PF 30 MG/1 ML SDV IM ONE (17:42)
== END 2018-01-30 18:05 | disposition home or self-care (01) ==
LOC: ER 11:13
DX: N83.292 Other ovarian cyst, left side (principal); R10.2 Pelvic and perineal pain; R10.31 Right lower quadrant pain; R10.32 Left lower quadrant pain; R11.2 Nausea with vomiting, unspecified; E11.9 Type 2 diabetes mellitus without complications; Z87.59 Personal history of other complications of pregnancy, childbirth and the puerperium; Z88.8 Allergy status to other drugs, medicaments and biological substances; Z88.0 Allergy status to penicillin
CPT/HCPCS: 36415; 76830; 80053; 81001; 81025; 85025; 87086; 99284

== ENCOUNTER 2018-04-10 18:05 | Emergency (ER) | payer SELFPAY ==
--- NOTE | 2018-04-10 19:15 | ER Document Report ---
ED Medical Screen (RME) - General Chief Complaint: Abdominal Pain Stated Complaint: ABDOMINAL PAIN,NAUSEA,LIGHTHEADED Time Seen by Provider: 04/10/18 19:08 Notes: 22 years old female presents today with a 1-1/2-month history of diffuse abdominal pain over the lower half of the abdomen, its on and off. Not associated with any nausea vomiting diarrhea or constipation. A few days ago she had a clot from the vagina. But her regular. Was 2 weeks ago. Denies any dysuria frequency urgency. No fever chills or other constitutional symptoms. History of ADHD, one miscarriage. Examination is by large benign TRAVEL OUTSIDE OF THE [place] IN LAST 30 DAYS: No - Related Data Allergies/Adverse Reactions: prednisone [Prednisone] Allergy (Unknown, Verified 04/10/18 18:07) amoxicillin [Amoxicillin] Allergy (Verified 04/10/18 18:07) ondansetron HCl [From Zofran] Allergy (Verified 04/10/18 18:07) promethazine [From Phenergan] Allergy (Verified 04/10/18 18:07) Past Medical History - Past Medical History Cardiac Medical History: Reports: Hx Hypercholesterolemia Pulmonary Medical History: Reports: Hx Bronchitis Endocrine Medical History: Reports: Hx Diabetes Mellitus Type 2 Renal/ Medical History: Reports: Hx Ectopic . Denies: Hx Peritoneal Dialysis GI Medical History: Reports: Hx Gastroesophageal Reflux Disease Musculoskeltal Medical History: Reports Hx Musculoskeletal Deformity - sciatica , Reports Hx Musculoskeletal Trauma - feet and fingers Psychiatric Medical History: Reports: Hx Anxiety, Hx Attention Deficit Hyperactivity Disorder, Hx Bipolar Disorder, Hx Depression Traumatic Medical History: Reports: Hx Fractures - fingers and feet Past Surgical History: Reports: Hx Adenoidectomy, Hx Oral Surgery, Hx Orthopedic Surgery - bilateral ankle, Hx Tonsillectomy - Immunizations Immunizations up to date: Yes Hx Diphtheria, Pertussis, Tetanus Vaccination: Yes Physical Exam - Vital signs Vitals: Temp Pulse Resp BP Pulse Ox 98.5 F 69 16 122/80 100 04/10/18 18:36 04/10/18 18:36 04/10/18 18:36 04/10/18 18:36 04/10/18 18:36 Course - Vital Signs Vital signs: Temp Pulse Resp BP Pulse Ox 98.5 F 69 16 122/80 100 04/10/18 18:36 04/10/18 18:36 04/10/18 18:36 04/10/18 18:36 04/10/18 18:36
[2018-04-10 19:53] LABS: ABSOLUTE EOSINOPHILS # (AUTO) 0.1 10^3/uL (0.0-0.6); ABSOLUTE LYMPHOCYTES (AUTO) 2.6 10^3/uL (0.5-4.7); ABSOLUTE MONOCYTES (AUTO) 0.4 10^3/uL (0.1-1.4); ABSOLUTE NEUT (AUTO) 4.6 10^3/uL (1.7-8.2); BASOPHILS % (AUTO) 0.4 % (0-2); HEMATOCRIT 36.9 % (36.0-47.0); HEMOGLOBIN 12.9 g/dL (12.0-15.5); LYMPHOCYTES % (AUTO) 33.5 % (13-45); MEAN CORPUSCULAR HEMOGLOBIN 29.8 pg (27.0-33.4); MEAN CORPUSCULAR VOLUME 85 fl (80-97); MONOCYTES % (AUTO) 5.8 % (3-13); PLATELET COUNT 200 10^3/uL (150-450); RED BLOOD COUNT 4.34 10^6/uL (3.72-5.28); SEGMENTED NEUTROPHILS % (AUTO) 59.3 % (42-78); TOTAL CELLS COUNTED % (AUTO) 100 %; WHITE BLOOD COUNT 7.7 10^3/uL (4.0-10.5)
[2018-04-10 19:59] LABS: APPEARANCE,URINE SLIGHTLY-CLOUDY; BILIRUBIN,URINE NEGATIVE (NEGATIVE); COLOR,URINE YELLOW; GLUCOSE, URINE NEGATIVE (NEGATIVE); KETONES,URINE NEGATIVE (NEGATIVE); LEUKOCYTE ESTERASE,URINE NEGATIVE (NEGATIVE); NITRITE,URINE NEGATIVE (NEGATIVE); PROTEIN,URINE NEGATIVE (NEGATIVE)
[2018-04-10 20:17] LABS: ALANINE AMINOTRANSFERASE 25 U/L (9-52); ALBUMIN 4.5 g/dL (3.5-5.0); ALKALINE PHOSPHATASE 72 U/L (38-126); ANION GAP 9 (5-19); ASPARTATE AMINO TRANSFERASE 23 U/L (14-36); BILIRUBIN,DIRECT 0.4 mg/dL (0.0-0.4); BILIRUBIN,TOTAL 0.6 mg/dL (0.2-1.3); BLOOD UREA NITROGEN 13 mg/dL (7-20); CALCIUM 9.5 mg/dL (8.4-10.2); CARBON DIOXIDE 28 mmol/L (22-30); CHLORIDE 104 mmol/L (98-107); GLUCOSE 92 mg/dL (75-110); LIPASE 119.5 U/L (23-300); POTASSIUM 4.1 mmol/L (3.6-5.0); SODIUM 141.2 mmol/L (137-145); TOTAL PROTEIN 7.4 g/dL (6.3-8.2)
--- NOTE | 2018-04-10 21:02 | ER Document Report ---
ED GI/ - General Chief Complaint: Abdominal Pain Stated Complaint: ABDOMINAL PAIN,NAUSEA,LIGHTHEADED Time Seen by Provider: 04/10/18 19:08 Mode of Arrival: Ambulatory Information source: Patient Notes: Patient is a 22-year-old female who presents with chief complaint of low abdomen and pelvic pain. Patient states the pain has been ongoing for approximately 6 weeks. Patient report nausea, lightheadedness and dizziness. Patient denies any vomiting or diarrhea. Patient reports she is been worked up for possible PCO S and endometriosis. Patient thinks she might be having a an ovarian cyst at this time. TRAVEL OUTSIDE OF THE [place] IN LAST 30 DAYS: No - Related Data Allergies/Adverse Reactions: prednisone [Prednisone] Allergy (Unknown, Verified 04/10/18 18:07) amoxicillin [Amoxicillin] Allergy (Verified 04/10/18 18:07) ondansetron HCl [From Zofran] Allergy (Verified 04/10/18 18:07) promethazine [From Phenergan] Allergy (Verified 04/10/18 18:07) Past Medical History - Social History Smoking Status: Never Smoker Family History: Reviewed & Not Pertinent, Arthritis, CAD, CVA, DM, Hyperlipidemia, Hypertension, Malignancy, Thyroid Disfunction Patient has suicidal ideation: No Patient has homicidal ideation: No - Past Medical History Cardiac Medical History: Reports: Hx Hypercholesterolemia Pulmonary Medical History: Reports: Hx Bronchitis Endocrine Medical History: Reports: Hx Diabetes Mellitus Type 2 Renal/ Medical History: Reports: Hx Ectopic . Denies: Hx Peritoneal Dialysis GI Medical History: Reports: Hx Gastroesophageal Reflux Disease Musculoskeletal Medical History: Reports Hx Musculoskeletal Deformity - sciatica , Reports Hx Musculoskeletal Trauma - feet and fingers Psychiatric Medical History: Reports: Hx Anxiety, Hx Attention Deficit Hyperactivity Disorder, Hx Bipolar Disorder, Hx Depression Traumatic Medical History: Reports: Hx Fractures - fingers and feet Past Surgical History: Reports: Hx Adenoidectomy, Hx Oral Surgery, Hx Orthopedic Surgery - bilateral ankle, Hx Tonsillectomy - Immunizations Immunizations up to date: Yes Hx Diphtheria, Pertussis, Tetanus Vaccination: Yes Review of Systems - Review of Systems Gastrointestinal: Abdominal pain, Nausea Female Genitourinary: Other - Pelvic pain Physical Exam - Vital signs Vitals: Temp Pulse Resp BP Pulse Ox 98.5 F 69 16 122/80 100 04/10/18 18:36 04/10/18 18:36 04/10/18 18:36 04/10/18 18:36 04/10/18 18:36 - Notes Notes: PHYSICAL EXAMINATION: GENERAL: Well-appearing, well-nourished and in no acute distress. HEAD: Atraumatic, normocephalic. EYES: Pupils equal round and reactive to light, extraocular movements intact, conjunctiva are normal. ENT: Nares patent, oropharynx clear without exudates. Moist mucous membranes. NECK: Normal range of motion, supple without lymphadenopathy LUNGS: Breath sounds clear to auscultation bilaterally and equal. No wheezes rales or rhonchi. HEART: Regular rate and rhythm without murmurs ABDOMEN: Soft, nontender, nondistended abdomen. No guarding, no rebound. No masses appreciated. Female : No CVA tenderness. Musculoskeletal: Normal range of motion, no pitting or edema. No cyanosis. NEUROLOGICAL: Cranial nerves grossly intact. Normal speech, normal gait. Normal sensory, motor exams PSYCH: Normal mood, normal affect. SKIN: Warm, Dry, normal turgor, no rashes or lesions noted. Course - Re-evaluation Re-evalutation: Patient is alert, oriented, sitting up on her phone during our examination. There is no distress noted. Abdomen is soft and nontender as outlined in the exam section. CBC, CMP and urinalysis are unremarkable. Transvaginal ultrasound reveals a left ovarian cyst which is likely the cause of patient's chronic pain and discomfort. Patient will be discharged home in stable condition with plans to follow-up with [facility] or primary care depending on who she is able to get into his patient states that she has "insurance issues". - Vital Signs Vital signs: Temp Pulse Resp BP Pulse Ox 98.5 F 69 16 122/80 100 04/10/18 18:36 04/10/18 18:36 04/10/18 18:36 04/10/18 18:36 04/10/18 18:36 - Laboratory Result Diagrams: 04/10/18 19:42 04/10/18 19:42 Laboratory results interpreted by me: 04/10/18 19:42 Urine Urobilinogen 2.0 H Discharge - Discharge Clinical Impression: Pelvic pain, Abdominal pain, chronic, bilateral lower quadrant Condition: Stable Disposition: HOME, SELF-CARE Additional Instructions: Abdominal Pain There are many causes of abdominal pain. Pain can mean a serious problem requiring surgery (such as appendicitis). It can also be an innocent problem that goes away on its own (such as a viral infection). Often, time must pass to determine the cause of pain. The physician does not feel that hospitalization is necessary, at present. Things may change within the next 24 hours. Call the doctor or come back for re- examination if any problems occur, such as: (1) Pain that becomes more severe, steady, or becomes concentrated in one specific area. Also, pain that is more severe with movement or coughing. (2) Vomiting that persists or becomes more frequent. (3) Blood in the vomitus, urine, or bowel movements. Blood in the stool may have a tarry or black appearance. (4) Shaking chills or fever greater than 100 degrees F. (5) The abdomen becomes more distended or swollen. (6) Bowel movements cease. (7) Failure to improve as expected. Ovarian Cyst Your examination shows the presence of an ovarian cyst. This is a ball of fluid attached to the ovary. Ovarian cysts in women of child-bearing age are usually innocent. However, the cyst may cause pain when it grows or bursts. An innocent ovarian cyst will usually go away by itself. When the cyst becomes painful, you should rest. Pain medication may be required. Some women find a hot water bottle soothing. The pain usually resolves within one or two days. After menopause, an ovarian cyst may mean a tumor, and requires more aggressive evaluation -- usually surgery is recommended to remove or biopsy the cyst. A very large cyst requires evaluation at any age. Most cysts (even the innocent ones) require follow-up examination. Call the doctor or return at any time if the pain increases significantly, if you become faint, or if you experience vaginal bleeding. Please follow up with OBGYN, call for an appointment. You may also go to [facility]. Prescriptions: Metoclopramide HCl [Reglan 10 mg Tablet] 1 - 2 tab PO ASDIR PRN #25 tablet PRN Reason: Forms: Return to Work Referrals: [facility] [Provider Group] - Follow up as needed
--- NOTE | 2018-04-10 21:38 | RADIOLOGY REPORT (SQ) ---
XR ABDOMEN SUPINE AND ERECT WITH CHEST (ABD ACUTE SERIES) HISTORY: Abdominal pain. COMPARISON: None. FINDINGS/IMPRESSION: Nonobstructive bowel gas pattern. No air-fluid levels or pneumoperitoneum on the upright view. Lung bases are clear. Osseous structures are intact.
--- NOTE | 2018-04-10 21:50 | RADIOLOGY REPORT (SQ) ---
EXAM DESCRIPTION: US TRANSVAGINAL COMPLETED DATE/TME: 04/10/2018 20:08 CLINICAL HISTORY: 22 years, Female, pelvic pain COMPARISON: None. TECHNIQUE: Transvaginal pelvic ultrasound was done along with Doppler evaluation of the ovaries LIMITATIONS: None. FINDINGS: The uterus measures 9.3 x 5.7 x 7.5 cm without any focal lesions. The endometrial thickness is 7 mm. The cervix measures 3.1 cm. The right ovary is not visualized. The left ovary measures 4.1 x 4.0 x 4.0 cm and shows normal Doppler signal. There are no adnexal masses or free fluid in the pelvis. In the left ovary there is presence of a 3.0 x 2.6 x 2.7 cm minimally septated cyst, benign in appearance and not requiring any imaging follow-up IMPRESSION: In the left ovary there is presence of a 3.0 x 2.6 x 2.7 cm minimally septated cyst, benign in appearance and not requiring any imaging follow-up. The right ovary is not visualized. The uterus, endometrium and the adnexa are unremarkable 2010 [employer]- All Rights Reserved
[2018-04-11 07:27] VITALS: BP 115/70
== END 2018-04-10 23:15 | disposition home or self-care (01) ==
LOC: ER 18:05
DX: N83.202 Unspecified ovarian cyst, left side (principal); R10.2 Pelvic and perineal pain; R10.31 Right lower quadrant pain; R10.32 Left lower quadrant pain; G89.29 Other chronic pain; R11.0 Nausea; R42 Dizziness and giddiness; E11.9 Type 2 diabetes mellitus without complications; Z88.8 Allergy status to other drugs, medicaments and biological substances; Z88.0 Allergy status to penicillin
CPT/HCPCS: 36415; 74022; 76830; 80053; 81001; 81025; 83690; 85025; 93976; 99284

== ENCOUNTER 2018-04-16 12:52 | Emergency (ER) | payer SELFPAY ==
[2018-04-16] MEDS ORDERED: NORMAL SALINE 1000 ML 1,000 ML IV ONE (13:13)
--- NOTE | 2018-04-16 13:29 | ER Document Report ---
ED Syncope and Near Syncope - General Mode of Arrival: Ambulatory Information source: Patient TRAVEL OUTSIDE OF THE [place] 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 Patient states this is has happened multiple times in the past after selling plasma. Patient denies any vomiting, diarrhea, history of seizures, history of PE/DVT, usage of control, or any long trips. (HUANG CHOI) - Related Data Allergies/Adverse Reactions: prednisone [Prednisone] Allergy (Unknown, Verified 04/10/18 18:07) amoxicillin [Amoxicillin] Allergy (Verified 04/10/18 18:07) ondansetron HCl [From Zofran] Allergy (Verified 04/10/18 18:07) promethazine [From Phenergan] Allergy (Verified 04/10/18 18:07) Past Medical History - General Information source: Patient - Social History Smoking Status: Unknown if Ever Smoked Cigarette use (# per day): No Frequency of alcohol use: None Drug Abuse: None Lives with: Family Family History: Reviewed & Not Pertinent, Arthritis, CAD, CVA, DM, Hyperlipidemia, Hypertension, Malignancy, Thyroid Disfunction Patient has suicidal ideation: No Patient has homicidal ideation: No - Past Medical History Cardiac Medical History: Reports: Hx Hypercholesterolemia, Other - Hx of syncope with blood draws Pulmonary Medical History: Reports: Hx Bronchitis Endocrine Medical History: Reports: Hx Diabetes Mellitus Type 2 Renal/ Medical History: Reports: Hx Ectopic GI Medical History: Reports: Hx Gastroesophageal Reflux Disease Musculoskeletal Medical History: Reports Hx Musculoskeletal Deformity - sciatica , Reports Hx Musculoskeletal Trauma - feet and fingers Psychiatric Medical History: Reports: Hx Anxiety, Hx Attention Deficit Hyperactivity Disorder, Hx Bipolar Disorder, Hx Depression Traumatic Medical History: Reports: Hx Fractures - fingers and feet Past Surgical History: Reports: Hx Adenoidectomy, Hx Oral Surgery, Hx Orthopedic Surgery - bilateral ankle, Hx Tonsillectomy - Immunizations Immunizations up to date: Yes Hx Diphtheria, Pertussis, Tetanus Vaccination: Yes <HUANG CHOI - Last Filed: 04/17/18 19:56> Review of Systems - Review of Systems Constitutional: See HPI, Diaphoresis EENT: No symptoms reported Cardiovascular: See HPI, Syncope, Dizziness, Lightheaded Respiratory: No symptoms reported Gastrointestinal: See HPI, Nausea Genitourinary: No symptoms reported Female Genitourinary: No symptoms reported Musculoskeletal: No symptoms reported Skin: No symptoms reported Hematologic/Lymphatic: No symptoms reported Neurological/Psychological: No symptoms reported -: Yes All other systems reviewed and negative <HUANG CHOI - Last Filed: 04/17/18 19:56> Physical Exam <HUANG CHOI - Last Filed: 04/17/18 19:56> <AMADA DUBON - Last Filed: 04/17/18 22:01> - Vital signs Vitals: Pulse BP 66 98/84 L 04/16/18 12:54 04/16/18 12:54 - Notes Notes: Physical Exam: General: Alert, appears well. HEENT: Normocephalic. Atraumatic. PERRL. Extraocular movements intact. Oropharynx clear. Neck: Supple. Non-tender. Respiratory: No respiratory distress. Clear and equal breath sounds bilaterally. Cardiovascular: Regular rate and rhythm. Abdominal: Obese. Non-tender. No distension. Normal Bowel Sounds. Back: Non-tender. No deformity or step off. Extremities: Moves all four extremities. Upper extremities: Normal inspection. Normal ROM. Lower extremities: Normal inspection. No edema. Normal ROM. Neurological: Normal cognition. AAOx4. Normal speech. Psychological: Normal affect. Normal Mood. Skin: Warm. Dry. Normal color. (HUANG CHOI) Course - Laboratory Result Diagrams: 04/16/18 12:59 04/16/18 12:59 <HUANG CHOI - Last Filed: 04/17/18 19:56> - Laboratory Result Diagrams: 04/16/18 12:59 04/16/18 12:59 - EKG Interpretation by Tx EKG shows normal: Sinus rhythm Rate: Normal Rhythm: NSR <AMADA DUBON - Last Filed: 04/17/18 22:01> - Re-evaluation Re-evalutation: 04/16/18 14:34 Patient had syncopal episode today after providing plasma for money. He has had symptoms like this in the past after blood draws. EKG shows no concerning findings, labs within normal limits are nonsignificant. Patient symptoms are resolved in the emergency department. Patient be discharged at this time. Discussed with patient if she is going to have her plasma drawn for Saturday twice a week she is to stay well-hydrated and sure to drink at least 5-6 glasses of water a day. PERC negative, evaluated due to report of chest tightness, but pt does have hx of anxiety and depression which is more feasible of her symptoms today. 04/16/18 14:35 04/16/18 14:36 (AMADA DUBON) - Vital Signs Vital signs: Temp Pulse Resp BP Pulse Ox 97.8 F 66 16 105/64 100 04/16/18 15:10 04/16/18 13:00 04/16/18 16:01 04/16/18 16:01 04/16/18 16:01 Discharge <HUANG CHOI - Last Filed: 04/17/18 19:56> <AMADA DUBON - Last Filed: 04/17/18 22:01> - Discharge Clinical Impression: Syncope Qualifiers: Syncope type: unspecified Qualified Code(s): R55 - Syncope and collapse Condition: Good Disposition: HOME, SELF-CARE Instructions: Syncopal Episode ([facility]) Referrals: [facility] [Outside] - Follow up as needed Scribe Attestation: 04/17/18 22:01 I personally performed the services described in the documentation, reviewed and edited the documentation which was dictated to the scribe in my presence, and it accurately records my words and actions. (AMADA DUBON) Scribe Documentation - Scribe Written by Benson:: Benson Bob, 04/17/20181999 acting as scribe for :: Marleny <HUANG CHOI - Last Filed: 04/17/18 19:56>
[2018-04-16 13:50] LABS: ABSOLUTE EOSINOPHILS # (AUTO) 0.1 10^3/uL (0.0-0.6); ABSOLUTE LYMPHOCYTES (AUTO) 2.7 10^3/uL (0.5-4.7); ABSOLUTE MONOCYTES (AUTO) 0.6 10^3/uL (0.1-1.4); ABSOLUTE NEUT (AUTO) 5.3 10^3/uL (1.7-8.2); BASOPHILS % (AUTO) 0.3 % (0-2); EOSINOPHILS % (AUTO) 0.9 % (0-6); HEMATOCRIT 39.1 % (36.0-47.0); HEMOGLOBIN 13.8 g/dL (12.0-15.5); LYMPHOCYTES % (AUTO) 31.3 % (13-45); MEAN CORPUSCULAR HEMOGLOBIN 29.8 pg (27.0-33.4); MEAN CORPUSCULAR HGB CONC 35.3 g/dL (32.0-36.0); MEAN CORPUSCULAR VOLUME 84 fl (80-97); MONOCYTES % (AUTO) 6.7 % (3-13); PLATELET COUNT 181 10^3/uL (150-450); RED BLOOD COUNT 4.64 10^6/uL (3.72-5.28); RED CELL DISTRIBUTION WIDTH 12.8 % (11.5-14.0); SEGMENTED NEUTROPHILS % (AUTO) 60.8 % (42-78); TOTAL CELLS COUNTED % (AUTO) 100 %; WHITE BLOOD COUNT 8.6 10^3/uL (4.0-10.5)
[2018-04-16 14:01] LABS: ANION GAP 7 (5-19); BLOOD UREA NITROGEN 12 mg/dL (7-20); CALCIUM 8.4 mg/dL (8.4-10.2); CARBON DIOXIDE 25 mmol/L (22-30); CHLORIDE 106 mmol/L (98-107); GLUCOSE 106 mg/dL (75-110); POTASSIUM 3.8 mmol/L (3.6-5.0); SODIUM 138.4 mmol/L (137-145)
[2018-04-16 16:15] VITALS: BP 105/64
--- NOTE | 2018-04-17 08:50 | EKG REPORT ---
SEVERITY:- NORMAL ECG - SINUS RHYTHM : Confirmed by: Hermila Driscoll 17-Apr-2018 08:49:29
== END 2018-04-16 16:13 | disposition home or self-care (01) ==
LOC: ER 12:52
DX: R55 Syncope and collapse (principal); R61 Generalized hyperhidrosis; R11.0 Nausea; E11.9 Type 2 diabetes mellitus without complications; R07.89 Other chest pain; Z88.8 Allergy status to other drugs, medicaments and biological substances; Z88.0 Allergy status to penicillin
CPT/HCPCS: 36415; 80048; 82962; 84703; 85025; 93005; 93010; 96360; 96361; 99284

== ENCOUNTER 2018-05-20 17:08 | Emergency (ER) | payer SELFPAY ==
[2018-05-20] MEDS ORDERED: METOCLOPRAMIDE HCL 10 MG TABLET PO ONE (17:41)
--- NOTE | 2018-05-20 17:44 | ER Document Report ---
ED Medical Screen (RME) - General Chief Complaint: Abdominal Pain Stated Complaint: ABDOMINAL PAIN Time Seen by Provider: 05/20/18 17:34 Mode of Arrival: Ambulatory Information source: Patient Notes: 22-year-old female presents emergency department complaints of lower abdominal pain. Patient states that she took 3 home tests that came back positive. She states that her last menstrual period was on April 02. She states that her and her are trying to conceive. Patient states that over the last couple of weeks she has had sore breast, fatigue, nausea. Patient is becoming concerned about the lower abdominal cramping. She states that it is becoming worse in nature. She denies any vaginal bleeding. She denies any vaginal discharge, dysuria, hematuria, diarrhea, constipation. Patient does have a history of left ovarian cyst and possible endometriosis. I have greeted and performed a rapid initial assessment of this patient. A comprehensive ED assessment and evaluation of the patient, analysis of test results and completion of the medical decision making process will be conducted by additional ED providers. PHYSICAL EXAMINATION: GENERAL: Well-appearing, well-nourished and in no acute distress. HEAD: Atraumatic, normocephalic. EYES: Pupils equal round extraocular movements intact, conjunctiva are normal. ENT: Nares patent NECK: Normal range of motion LUNGS: No respiratory distress Musculoskeletal: Normal range of motion NEUROLOGICAL: Normal speech, normal gait. PSYCH: Normal mood, normal affect. SKIN: Warm, Dry, normal turgor, no rashes or lesions noted. TRAVEL OUTSIDE OF THE [place] IN LAST 30 DAYS: No - Related Data Allergies/Adverse Reactions: prednisone [Prednisone] Allergy (Unknown, Verified 04/10/18 18:07) amoxicillin [Amoxicillin] Allergy (Verified 04/10/18 18:07) ondansetron HCl [From Zofran] Allergy (Verified 04/10/18 18:07) promethazine [From Phenergan] Allergy (Verified 04/10/18 18:07) Past Medical History - Social History Chew tobacco use (# tins/day): No Frequency of alcohol use: None Drug Abuse: None - Past Medical History Cardiac Medical History: Reports: Hx Hypercholesterolemia Pulmonary Medical History: Reports: Hx Bronchitis Endocrine Medical History: Reports: Hx Diabetes Mellitus Type 2 Renal/ Medical History: Reports: Hx Ectopic . Denies: Hx Peritoneal Dialysis GI Medical History: Reports: Hx Gastroesophageal Reflux Disease Musculoskeltal Medical History: Reports Hx Musculoskeletal Deformity - sciatica , Reports Hx Musculoskeletal Trauma - feet and fingers Psychiatric Medical History: Reports: Hx Anxiety, Hx Attention Deficit Hyperactivity Disorder, Hx Bipolar Disorder, Hx Depression Traumatic Medical History: Reports: Hx Fractures - fingers and feet Past Surgical History: Reports: Hx Adenoidectomy, Hx Oral Surgery, Hx Orthopedic Surgery - bilateral ankle, Hx Tonsillectomy - Immunizations Immunizations up to date: Yes Hx Diphtheria, Pertussis, Tetanus Vaccination: Yes Physical Exam - Vital signs Vitals: Temp Pulse Resp BP Pulse Ox 98.7 F 88 18 130/70 H 99 05/20/18 17:16 05/20/18 17:16 05/20/18 17:16 05/20/18 17:16 05/20/18 17:16 Course - Vital Signs Vital signs: Temp Pulse Resp BP Pulse Ox 98.7 F 88 16 130/70 H 99 05/20/18 17:16 05/20/18 17:16 05/20/18 17:32 05/20/18 17:16 05/20/18 17:16
[2018-05-20 18:40] LABS: AMORPHOUS SEDIMENT,URINE TRACE /HPF; APPEARANCE,URINE SLIGHTLY-CLOUDY; BILIRUBIN,URINE NEGATIVE (NEGATIVE); COLOR,URINE YELLOW; GLUCOSE, URINE NEGATIVE (NEGATIVE); KETONES,URINE NEGATIVE (NEGATIVE); LEUKOCYTE ESTERASE,URINE NEGATIVE (NEGATIVE); NITRITE,URINE NEGATIVE (NEGATIVE); PROTEIN,URINE NEGATIVE (NEGATIVE)
--- NOTE | 2018-05-20 19:50 | ER Document Report ---
ED General - General Chief Complaint: Abdominal Pain Stated Complaint: ABDOMINAL PAIN Time Seen by Provider: 05/20/18 17:34 Mode of Arrival: Ambulatory Information source: Patient Notes: This is a 22-year-old female with a history of frequent visits to the emergency room for lower pelvic pain. Patient states she was told she might have endometriosis in the past. Patient states that she has had another episode of pain that has been lasting about a month. She has had a history of ovarian cyst in the past. She does state that she had a home test which was positive. She denies any chest pain, shortness of breath. She does state that her pain is lower in the pelvic region. She denies any vomiting. She does have some nausea at this time. TRAVEL OUTSIDE OF THE [place] IN LAST 30 DAYS: No - HPI Onset: Last week Onset/Duration: Gradual Quality of pain: Dull Severity: Moderate Pain Level: 3 Associated symptoms: denies: Chest pain, Fever, Shortness of breath Exacerbated by: Denies Relieved by: Denies Similar symptoms previously: Yes Recently seen / treated by doctor: Yes - Related Data Allergies/Adverse Reactions: prednisone [Prednisone] Allergy (Unknown, Verified 04/10/18 18:07) amoxicillin [Amoxicillin] Allergy (Verified 04/10/18 18:07) ondansetron HCl [From Zofran] Allergy (Verified 04/10/18 18:07) promethazine [From Phenergan] Allergy (Verified 04/10/18 18:07) Past Medical History - General Information source: Patient - Social History Smoking Status: Never Smoker Cigarette use (# per day): No Chew tobacco use (# tins/day): No Frequency of alcohol use: None Drug Abuse: None Lives with: Family Family History: Reviewed & Not Pertinent, Arthritis, CAD, CVA, DM, Hyperlipidemia, Hypertension, Malignancy, Thyroid Disfunction Patient has suicidal ideation: No Patient has homicidal ideation: No - Past Medical History Cardiac Medical History: Reports: Hx Hypercholesterolemia Pulmonary Medical History: Reports: Hx Bronchitis Endocrine Medical History: Reports: Hx Diabetes Mellitus Type 2 Renal/ Medical History: Reports: Hx Ectopic . Denies: Hx Peritoneal Dialysis GI Medical History: Reports: Hx Gastroesophageal Reflux Disease Musculoskeletal Medical History: Reports Hx Musculoskeletal Deformity - sciatica , Reports Hx Musculoskeletal Trauma - feet and fingers Psychiatric Medical History: Reports: Hx Anxiety, Hx Attention Deficit Hyperactivity Disorder, Hx Bipolar Disorder, Hx Depression Traumatic Medical History: Reports: Hx Fractures - fingers and feet Past Surgical History: Reports: Hx Adenoidectomy, Hx Oral Surgery, Hx Orthopedic Surgery - bilateral ankle, Hx Tonsillectomy - Immunizations Immunizations up to date: Yes Hx Diphtheria, Pertussis, Tetanus Vaccination: Yes Review of Systems - Review of Systems Constitutional: denies: Chills, Fever EENT: No symptoms reported Cardiovascular: No symptoms reported Respiratory: No symptoms reported Gastrointestinal: See HPI Genitourinary: No symptoms reported Female Genitourinary: See HPI Musculoskeletal: No symptoms reported Skin: No symptoms reported Hematologic/Lymphatic: No symptoms reported Neurological/Psychological: No symptoms reported Physical Exam - Vital signs Vitals: Temp Pulse Resp BP Pulse Ox 98.7 F 88 18 130/70 H 99 05/20/18 17:16 05/20/18 17:16 05/20/18 17:16 05/20/18 17:16 05/20/18 17:16 Notes: Physical exam: GENERAL: Patient is alert and oriented x3, no acute distress. HEAD: Atraumatic, normocephalic. EYES: Pupils equal round and reactive to light, extraocular movements intact, sclera anicteric, conjunctiva are normal. ENT: TMs normal, nares patent, oropharynx clear without exudates. Moist mucous membranes. NECK: Normal range of motion, supple without obvious mass or JVD. LUNGS: Breath sounds clear to auscultation bilaterally and equal. No wheezes rales or rhonchi. HEART: Regular rate and rhythm without murmurs, rubs or gallops. ABDOMEN: Soft, normoactive bowel sounds. No tenderness to palpation. No guarding, no rebound. No masses appreciated. Pelvic exam: Performed with nurse present. External genitalia normal, scant white discharge in vault, no blood from loss, no cervical motion tenderness, adnexal tenderness, adnexal mass or uterine tenderness. EXTREMITIES: Normal range of motion, no pitting or edema. No clubbing or cyanosis. NEUROLOGICAL: Cranial nerves II through XII grossly intact. Normal speech, moving all extremities. PSYCH: Normal mood, normal affect. SKIN: Warm, Dry, normal turgor, no rashes or lesions noted. Bedside ultrasound: No gallstones, normal gallbladder wall, no pericholecystic fluid, no hydronephrosis on the right. Uterus normal size without any obvious evidence of , ovaries not visualized due to bowel gas. Patient tolerated the exam well and there was no tenderness with palpation of the probe. Course - Re-evaluation Re-evalutation: 05/20/18 20:14 Note: Patient's abdomen is soft and nontender. Reassured the patient. Much of her concern is that she is been trying to get for 2-1/2 years without success. She does plan on going to an fertility electronics test engineer in [place] and I have encouraged her that this is a good plan. Otherwise, I do not see any peritonitis, infection or any serious problems at this time. 05/20/18 20:15 - Vital Signs Vital signs: Temp Pulse Resp BP Pulse Ox 98.5 F 68 16 115/71 100 05/20/18 20:16 05/20/18 20:16 05/20/18 20:16 05/20/18 20:16 05/20/18 20:16 - Laboratory Laboratory results interpreted by me: 05/20/18 18:17 Urine Urobilinogen 4.0 H Discharge - Discharge Clinical Impression: Pelvic pain Condition: Stable Disposition: HOME, SELF-CARE Additional Instructions: We discussed, the room test was negative. Ultrasound performed today did not show any evidence of gallstones or any significant problems with your uterus. Your pelvic exam was normal. We will call you if any of the cultures turn back abnormal. Otherwise following up with the OB doctor as planned and [facility] is a good idea given the issue of infertility. Return to the emergency room for any worsening abdominal pain, not tolerating fluids or any concerns or getting worse.
[2018-05-20 20:18] VITALS: BP 115/71
[2018-05-20 20:40] LABS: BACTERIA (WET MOUNT) 4+ BACTERIA SEEN; EPITHELIALS (WET MOUNT) 3+ EPITHELIALS SEEN; T.VAGINALIS (WET MOUNT) NO TRICHOMONAS SEEN; WBCS (WET MOUNT) 1+ WBCS SEEN; YEAST (WET MOUNT) NO YEAST SEEN
[2018-05-20 22:03] LABS: CHLAM PCR NOT DETECTED (NOT DETECT); GON PCR NOT DETECTED (NOT DETECT)
== END 2018-05-20 20:24 | disposition home or self-care (01) ==
LOC: ER 17:08
DX: R10.2 Pelvic and perineal pain (principal); R10.9 Unspecified abdominal pain; E78.00 Pure hypercholesterolemia, unspecified; E11.9 Type 2 diabetes mellitus without complications; K21.9 Gastro-esophageal reflux disease without esophagitis; F41.9 Anxiety disorder, unspecified; F90.9 Attention-deficit hyperactivity disorder, unspecified type; F31.9 Bipolar disorder, unspecified; Z88.1 Allergy status to other antibiotic agents; Z88.8 Allergy status to other drugs, medicaments and biological substances
CPT/HCPCS: 36415; 81001; 81025; 84702; 87210; 87491; 87591; 99284

== ENCOUNTER 2018-09-26 23:11 | Emergency (ER) | payer OTHER ==
[2018-09-27 01:43] LABS: ABSOLUTE EOSINOPHILS # (AUTO) 0.1 10^3/uL (0.0-0.6); ABSOLUTE LYMPHOCYTES (AUTO) 2.5 10^3/uL (0.5-4.7); ABSOLUTE MONOCYTES (AUTO) 0.5 10^3/uL (0.1-1.4); ABSOLUTE NEUT (AUTO) 4.4 10^3/uL (1.7-8.2); BASOPHILS % (AUTO) 0.3 % (0-2); EOSINOPHILS % (AUTO) 1.4 % (0-6); HEMATOCRIT 33.7 % (36.0-47.0); HEMOGLOBIN 11.5 g/dL (12.0-15.5); LYMPHOCYTES % (AUTO) 32.9 % (13-45); MEAN CORPUSCULAR HGB CONC 34.1 g/dL (32.0-36.0); MEAN CORPUSCULAR VOLUME 85 fl (80-97); MONOCYTES % (AUTO) 7.3 % (3-13); PLATELET COUNT 175 10^3/uL (150-450); RED BLOOD COUNT 3.96 10^6/uL (3.72-5.28); RED CELL DISTRIBUTION WIDTH 13.4 % (11.5-14.0); SEGMENTED NEUTROPHILS % (AUTO) 58.1 % (42-78); TOTAL CELLS COUNTED % (AUTO) 100 %; WHITE BLOOD COUNT 7.5 10^3/uL (4.0-10.5)
[2018-09-27 01:50] LABS: ALANINE AMINOTRANSFERASE 27 U/L (9-52); ALBUMIN 3.6 g/dL (3.5-5.0); ALKALINE PHOSPHATASE 71 U/L (38-126); ANION GAP 8 (5-19); ASPARTATE AMINO TRANSFERASE 16 U/L (14-36); BILIRUBIN,DIRECT 0.1 mg/dL (0.0-0.4); BILIRUBIN,TOTAL 0.3 mg/dL (0.2-1.3); BLOOD UREA NITROGEN 11 mg/dL (7-20); CALCIUM 8.8 mg/dL (8.4-10.2); CARBON DIOXIDE 26 mmol/L (22-30); CHLORIDE 107 mmol/L (98-107); GLUCOSE 116 mg/dL (75-110); POTASSIUM 3.8 mmol/L (3.6-5.0); SODIUM 141.4 mmol/L (137-145); TOTAL PROTEIN 5.8 g/dL (6.3-8.2)
[2018-09-27] MEDS ORDERED: HYDROMORPHONE HCL INJ/PF 2 MG/ML AMPULE IV ONE (02:02)
[2018-09-27 03:19] LABS: APPEARANCE,URINE SLIGHTLY-CLOUDY; BILIRUBIN,URINE NEGATIVE (NEGATIVE); COLOR,URINE YELLOW; GLUCOSE, URINE NEGATIVE (NEGATIVE); KETONES,URINE NEGATIVE (NEGATIVE); LEUKOCYTE ESTERASE,URINE NEGATIVE (NEGATIVE); NITRITE,URINE NEGATIVE (NEGATIVE); PROTEIN,URINE NEGATIVE (NEGATIVE); URINE SPECIFIC GRAVITY 1.023
--- NOTE | 2018-09-27 03:54 | RADIOLOGY REPORT (SQ) ---
EXAM DESCRIPTION: CT ABDOMEN PELVIS WITHOUT IV CONTRAST COMPLETED DATE/TME: 09/27/2018 02:02 CLINICAL HISTORY: 22 years, Female, s/p laparoscopy, c/o SOB, dyspnea, abd pain Comparison: None TECHNIQUE: Contiguous axial CT images of the abdomen and pelvis were obtained. Sagittal and coronal reformats were reviewed. This exam was performed according to our departmental dose-optimization program, which includes automated exposure control, adjustment of the mA and/or kV according to patient size and/or use of iterative reconstruction technique. FINDINGS: Lung bases: Subsegmental atelectasis in both lung bases. Liver:Unremarkable. No focal liver lesion. Gallbladder:Unremarkable. No gallstones. No gallbladder wall thickening or pericholecystic fluid. Spleen:Unremarkable Pancreas: Pancreas is unremarkable. Adrenal glands:Within normal limits. Kidneys/ureters:Within normal limits Stomach/small bowel/colon: Stomach is unremarkable. Small bowel is unremarkable. Colon is unremarkable. Appendix: No evidence of appendicitis. Peritoneum: Scattered free air throughout the abdomen as expected following recent laparoscopy. There are no defined fluid collections. Vascular structures: within normal limits Lymph nodes: No abnormal lymph nodes. Bladder:Unremarkable. Pelvic organs: No acute abnormality Bones: No acute osseous abnormality. Soft tissues: Unremarkable.. IMPRESSION: Pneumoperitoneum as expected following recent laparoscopy. No defined Subsegmental atelectasis in both lung bases.
--- NOTE | 2018-09-27 04:08 | RADIOLOGY REPORT (SQ) ---
EXAM DESCRIPTION: CT CHEST ANGIOGRAPHY WITHOUT THEN WITH IV CONTRAST COMPLETED DATE/TME: 09/27/2018 02:02 CLINICAL HISTORY: 22 years, Female, s/p laparoscopy, c/o SOB, dyspnea, abd pain COMPARISON: None. TECHNIQUE: Axial images through the chest were performed after the administration of intravenous contrast using a pulmonary embolus protocol. MIPS were performed. This exam was performed according to our departmental dose-optimization program which includes use of Automated Exposure Control, adjustment of the mA and/or kV according to patient size and/or use of iterative reconstruction technique. FINDINGS: No pulmonary embolus is identified. Normal caliber aorta without dissection. No pericardial effusion. No pleural effusion. Subsegmental atelectasis in both lower lobes. No pneumothorax. Patent central airway. Soft tissues are unremarkable. No acute osseous findings. Free air present in the upper abdomen as expected following recent laparoscopy. IMPRESSION: No pulmonary embolus. Subsegmental atelectasis in both lower lobes.
--- NOTE | 2018-09-27 04:21 | ER Document Report ---
Entered by HUANG CHOI SCRIBE 09/27/18 0206 Acting as scribe for:KAYLEE JIANG DO ED GI/ - General Chief Complaint: Post Surgical Pain Stated Complaint: BREATHING DIFFICULTY Time Seen by Provider: 09/27/18 01:52 Mode of Arrival: Ambulatory Information source: Patient Notes: 22-year-old female who presents to the emergency department today with complaints of abdominal pain with associated shortness of breath. Patient states she had a laparoscopy performed yesterday to "remove endometriosis". Patient states she was told that she "may have had a spasm in her uterus during the procedure because he was unable to flush my tubes". Patient states her pain increases with standing up or lying down flat. Patient states she feels like she cannot get a deep breath and also has pain when breathing. Patient states the pain radiates up into her right shoulder. Patient states the last time she ate or drink was at 2200 yesterday evening. Patient states she also feels like she is constipated, stating she has not had a bowel movement x2 days. Patient states she has had decreased urine output since this procedure yesterday as well. Patient denies a history of PE/DVT. Patient denies any hormone usage stating that she is actively trying to get . TRAVEL OUTSIDE OF THE [place] IN LAST 30 DAYS: No - Related Data Allergies/Adverse Reactions: prednisone [Prednisone] Allergy (Unknown, Verified 04/10/18 18:07) amoxicillin [Amoxicillin] Allergy (Verified 04/10/18 18:07) ondansetron HCl [From Zofran] Allergy (Verified 04/10/18 18:07) promethazine [From Phenergan] Allergy (Verified 04/10/18 18:07) Past Medical History - General Information source: Patient, [facility] Records - Social History Smoking Status: Never Smoker Cigarette use (# per day): No Chew tobacco use (# tins/day): No Frequency of alcohol use: Occasional Drug Abuse: None Lives with: Family Family History: Reviewed & Not Pertinent, Arthritis, CAD, CVA, DM, Hyperlipidemia, Hypertension, Malignancy, Thyroid Disfunction Patient has suicidal ideation: No Patient has homicidal ideation: No - Past Medical History Cardiac Medical History: Reports: Hx Hypercholesterolemia Pulmonary Medical History: Reports: Hx Bronchitis Endocrine Medical History: Reports: Hx Diabetes Mellitus Type 2 Renal/ Medical History: Reports: Hx Ectopic GI Medical History: Reports: Hx Gastroesophageal Reflux Disease Musculoskeletal Medical History: Reports Hx Musculoskeletal Deformity - sciatica, Reports Hx Musculoskeletal Trauma - feet and fingers Psychiatric Medical History: Reports: Hx Anxiety, Hx Attention Deficit Hyperact ivity Disorder, Hx Bipolar Disorder, Hx Depression Traumatic Medical History: Reports: Hx Fractures - fingers and feet Past Surgical History: Reports: Hx Adenoidectomy, Hx Oral Surgery, Hx Orthopedic Surgery - bilateral ankle, Hx Tonsillectomy, Other - Laparoscopy for endometriosis - Immunizations Immunizations up to date: Yes Hx Diphtheria, Pertussis, Tetanus Vaccination: Yes Review of Systems - Review of Systems Constitutional: No symptoms reported EENT: No symptoms reported Cardiovascular: No symptoms reported Respiratory: See HPI, Hurts to breathe, Short of breath Gastrointestinal: See HPI, Abdominal pain, Constipation Genitourinary: No symptoms reported Female Genitourinary: No symptoms reported Musculoskeletal: See HPI, Joint pain - right shoulder Skin: No symptoms reported Hematologic/Lymphatic: No symptoms reported Neurological/Psychological: No symptoms reported -: Yes All other systems reviewed and negative Physical Exam - Vital signs Vitals: Temp Resp Pulse Ox 98.1 F 17 97 09/26/18 23:16 09/26/18 23:16 09/26/18 23:16 - Notes Notes: PHYSICAL EXAM GENERAL: Alert, interacts well. Appears uncomfortable. HEAD: Normocephalic, atraumatic. EYES: Pupils equal, round, and reactive to light. Extraocular movements intact. ENT: Oral mucosa moist, tongue midline. NECK: Full range of motion. Supple. Trachea midline. LUNGS: Clear to auscultation bilaterally, no wheezes, rales, or rhonchi. No res piratory distress. HEART: Regular rate and rhythm. No murmurs, gallops, or rubs. ABDOMEN: See skin exam. Soft, mild diffuse tenderness with palpation increased in the epigastrium. Mildly distended. Bowel sounds present in all 4 quadrants. No guarding, rigidity, or rebound. EXTREMITIES: Moves all 4 extremities spontaneously. No edema, radial and dorsalis pedis pulses 2/4 bilaterally. No cyanosis. NEUROLOGICAL: Alert and oriented x3. Normal speech. PSYCH: Normal affect, normal mood. SKIN: Warm, dry, normal turgor. Two laparoscopic surgical incisions to abdomen which appear clean, dry, and intact. Course - Re-evaluation Re-evalutation: 09/27/18 04:18 CBC shows mild anemia with hemoglobin 11 5, no leukocytosis, CMP grossly un remarkable, urinalysis shows moderate blood, 3 RBCs. Given the patient's complaints of significant pain and difficulty breathing patient had a CT of the chest performed to look for pulmonary embolism as well as a CT scan of abdomen and pelvis to look for evidence of bowel perforation. The studies reveal subsegmental atelectasis but no evidence of pulmonary embolism and scattered amounts of free air consistent with being post laparoscopic surgery but no evidence of gross bowel perforation. Patient is given incentive spirometer and instructed on deep breathing. Instructed follow-up as an outpatient with her surgeon. - Vital Signs Vital signs: Temp Pulse Resp BP Pulse Ox 98.1 F 22 H 117/62 99 09/26/18 23:16 09/27/18 04:01 09/27/18 04:01 09/27/18 04:01 - Laboratory Result Diagrams: 09/26/18 23:20 09/26/18 23:20 Laboratory results interpreted by me: 09/26/18 09/26/18 09/27/18 23:20 23:20 02:58 Hgb 11.5 L Hct 33.7 L Glucose 116 H Total Protein 5.8 L Urine Blood MODERATE H Urine Urobilinogen 4.0 H Discharge - Discharge Clinical Impression: Postoperative pain, Atelectasis of both lungs Abdominal pain Qualifiers: Abdominal location: generalized Qualified Code(s): R10.84 - Generalized abdominal pain Condition: Stable Disposition: HOME, SELF-CARE Additional Instructions: The pain that you are having appears to be coming from your surgery. There is no evidence of complications from your surgery. There is no evidence of infection in your urine. Please drink plenty of fluids, take at least 10 full capacity deep breaths every hour or use your incentive spirometer every hour while you are awake as directed. Please return to the emergency department for fevers, vomiting, worsening pain or any new or concerning symptoms. I personally performed the services described in the documentation, reviewed and edited the documentation which was dictated to the scribe in my presence, and it accurately records my words and actions.
[2018-09-27 04:45] VITALS: BP 114/64
== END 2018-09-27 04:45 | disposition home or self-care (01) ==
LOC: ER 23:11
DX: J98.11 Atelectasis (principal); R10.84 Generalized abdominal pain; G89.18 Other acute postprocedural pain; R10.9 Unspecified abdominal pain; R06.02 Shortness of breath; M25.511 Pain in right shoulder; K59.00 Constipation, unspecified; R33.9 Retention of urine, unspecified; E11.9 Type 2 diabetes mellitus without complications; Z98.890 Other specified postprocedural states
CPT/HCPCS: 99283; 96374; 36415; 84703; 85025; 80053; 81001; 71275; 74176; J1170